=== PATIENT | female | born 1940 | race Caucasian/White ===

== ENCOUNTER 2017-04-15 10:12 | Outpatient (CLI) | payer MEDICARE, OTHER ==
--- NOTE | 2017-04-16 13:48 | DEXA Report ---
DEXA SCAN: 04/15/2017 INDICATION: Osteoporosis. TECHNIQUE: Dual energy x-ray absorptiometry (DXA) was performed on a [employer] system. Regions measured are the AP spine, femoral neck, and, if needed, forearm. COMPARISON: None. In accordance with the International Society for Clinical Densitometry (ISCD) guidelines, data from previous exams may be reanalyzed using current recommendations and techniques. This is done to allow a more accurate basis for comparison with the current study. FINDINGS Data for the lumbar spine is as follows: REGION BMD (g/cm/cm) T-SCORE Z-SCORE L1 0.738 -3.3 -1.6 L2 0.885 -2.6 -1.0 L3 0.949 -2.1 -0.4 L4 0.889 -2.6 -0.9 TOTAL 0.870 -2.6 -0.9 NOTE: All evaluable vertebrae are used for classification. Data for the hip is as follows: REGION BMD (g/cm/cm) T-SCORE Z-SCORE Neck 0.689 -2.5 -0.6 TOTAL 0.627 -3.0 -1.3 NOTE: The femoral neck or total proximal femur, whichever is lowest, is used for classification. IMPRESSION: THE WHO CLASSIFICATION BASED ON THE INTERNATIONAL REFERENCE STANDARD IS OSTEOPOROSIS. FRACTURE RISK IS HIGH. RECOMMENDATION: Patients with diagnosis of osteoporosis or osteopenia should have regular bone mineral density assessment. For those eligible for Medicare, routine testing is allowed once every 2 years. Testing frequency can be increased for patients who have rapidly progressing disease or for those who are receiving medical therapy to restore bone mass. COMMENT: World Health Organization (WHO) definitions for osteoporosis and osteopenia: NORMAL BMD: T-score at -1.0 or higher, fracture risk is low. OSTEOPENIA BMD: T-score between -1.0 and -2.5, fracture risk is increased. OSTEOPOROSIS BMD: T-score at -2.5 or lower, fracture risk high. National Osteoporosis Foundation recommends: 1. Obtain adequate dietary calcium (at least 1200 mg per day) and vitamin D (400 -800 international units per day). 2. Participate, as appropriate, in regular weightbearing and muscle- strengthening exercise. 3. Avoid tobacco use and reduce alcohol and caffeine intake. 4. For more detailed information see the website at www.NOF.org. MTDD
== END 2017-04-15 10:13 | disposition home or self-care (01) ==
LOC: DI 10:12
PROVIDERS: ATTEND Internal Medicine
DX: M81.0 Age-related osteoporosis without current pathological fracture (principal)
CPT/HCPCS: 77080

== ENCOUNTER 2017-04-15 10:14 | Outpatient (CLI) | payer MEDICARE, OTHER ==
--- NOTE | 2017-04-17 15:40 | Mammography Report ---
DIGITAL BILATERAL SCREENING MAMMOGRAM: 04/15/2017 COMPARISON: Mammogram of 04/02/2016. INDICATION: Screening mammography. TECHNIQUE: Routine CC and MLO projections were obtained of the breasts. FINDINGS: Parenchymal tissue within both breasts is heterogeneously dense, which may lower the sensi tivity of mammography; however, there are no dominant masses, suspicious microcalcifications, or seco ndary signs of malignancy. In comparison to the previous studies, there are no significant changes. ASSESSMENT: NO MAMMOGRAPHIC EVIDENCE OF MALIGNANCY. NO SIGNIFICANT INTERVAL CHANGES. RECOMMENDATION: Screening mammography is recommended annually. BIRADS category 1 - negative. STANDARD QUALIFYING STATEMENTS 1. This examination was reviewed with the aid of Computed-Aided Detection (CAD). 2. A negative or benign imaging report should not delay biopsy if clinically suspicious findings are present. Consider surgical consultation if warranted. More than 5% of cancers are not identified by i maging. 3. Dense breasts may obscure an underlying neoplasm. JOB #: [id number] EXT JOB #:[id number]
== END 2017-04-15 10:15 | disposition home or self-care (01) ==
LOC: DI 10:14
PROVIDERS: ATTEND Internal Medicine
DX: Z12.31 Encounter for screening mammogram for malignant neoplasm of breast (principal)
CPT/HCPCS: 77067

== ENCOUNTER 2017-10-02 12:02 | Outpatient (CLI) | payer MEDICARE, OTHER ==
--- NOTE | 2017-10-02 13:39 | Ultrasound Report ---
RIGHT LEG VENOUS DUPLEX: 10/02/2017 CLINICAL INDICATION: Right leg pain. TECHNIQUE: Real-time sonographic vascular imaging was performed by the substance abuse services director through the right lower extremity utilizing both color flow and Doppler spectral analysis. Multiple licensing representative static images were saved for review. FINDINGS: A right lower extremity venous sonogram is performed revealing the common femoral, superficial femoral, profunda femoris, and popliteal veins to be adequately visualized without intraluminal defects. There is normal venous compression, augmentation, phasicity, and spontaneity of venous flow. In the calf, the visualized more cephalad portions of posterior tibial and peroneal veins are grossly compressible, without filling defects. IMPRESSION: NO EVIDENCE OF DEEP VENOUS THROMBOSIS. TD: 10/02/2017 13:37
== END 2017-10-02 12:03 | disposition home or self-care (01) ==
LOC: DI 12:02
PROVIDERS: ATTEND Internal Medicine
DX: M79.604 Pain in right leg (principal)

== ENCOUNTER 2018-04-26 12:59 | Outpatient (CLI) | payer MEDICARE, OTHER ==
--- NOTE | 2018-04-27 10:18 | Mammography Report ---
Reason: ANNUAL SCREENING Procedure Date: 04/26/2018 Accession Number: [id number] / [id number] Procedure: KATELYN - Screening Mammo w/Erlin CPT Code: FULL RESULT: EXAM: Screening Mammo w/Erlin DATE: 04/26/2018 2:23 PM CLINICAL HISTORY: 77-year-old female presents for screening mammogram. TECHNIQUE: Bilateral CC and MLO views were obtained. COMPARISON: 04/15/2017, 04/02/2016, 03/22/2015, 03/08/2014. FINDINGS: The breasts demonstrate scattered fibroglandular densities bilaterally. No suspicious masses, clustered microcalcifications, or regions of architectural distortion are identified. IMPRESSION: Negative examination RECOMMENDATION: Routine annual screening unless otherwise clinically indicated. BIRADS CATEGORY 1: Negative STANDARD QUALIFYING STATEMENTS: 1. This examination was not reviewed with the aid of Computer-Aided Detection (CAD). 2. A negative or benign imaging report should not delay biopsy if clinically suspicious findings are present. Consider surgical consultation if warrented. More than 5% of cancers are not identified by imaging. 3. Dense breasts may obscure an underlying neoplasm. 4. This examination was reviewed with the aid of 3D breast imaging (tomosynthesis).
== END 2018-04-26 13:00 | disposition home or self-care (01) ==
LOC: DI 12:59
PROVIDERS: ATTEND Internal Medicine
DX: Z12.31 Encounter for screening mammogram for malignant neoplasm of breast (principal)
CPT/HCPCS: 77063; 77067

== ENCOUNTER 2018-09-07 08:00 | Outpatient (CLI) | payer MEDICARE, OTHER ==
[2018-09-07 13:14] LABS: H. PYLORIS ANTIGEN STL NEGATIVE (Negative)
== END 2018-09-07 23:59 | disposition home or self-care (01) ==
LOC: LAB.R 08:00
PROVIDERS: ATTEND Internal Medicine
DX: R14.0 Abdominal distension (gaseous) (principal); K21.9 Gastro-esophageal reflux disease without esophagitis
CPT/HCPCS: 83630; 87338; 89055

== ENCOUNTER 2018-10-14 10:50 | Outpatient (CLI) | payer MEDICARE, OTHER ==
[2018-10-14 18:26] LABS: BASOPHILS % (AUTO) 0.4 %; EOSINOPHILS # (AUTO) 0.1 10^3/uL (0.0-0.7); EOSINOPHILS % (AUTO) 2.6 %; HGB - HEMOGLOBIN 11.9 g/dL (12.0-16.0); LYMPHOCYTES # (AUTO) 1.3 10^3/uL (1.5-3.5); LYMPHOCYTES % (AUTO) 32.4 %; MEAN CORPUSCULAR HEMOGLOBIN 30.2 pg (27.0-31.0); MEAN CORPUSCULAR HGB CONC 32.8 g/dL (32.0-36.0); MEAN CORPUSCULAR VOLUME 92.3 fL (81.0-99.0); MEAN PLATELET VOLUME 9.2 fL (7.9-10.8); MONOCYTES # (AUTO) 0.4 10^3/uL (0.0-1.0); MONOCYTES % (AUTO) 11.5 %; NEUTROPHILS # (AUTO) 2.1 10^3/uL (1.5-6.6); NEUTROPHILS % (AUTO) 53.1 %; PLT - PLATELET COUNT 202 10^3/uL (130-450); RED BLOOD COUNT 3.93 10^6/uL (4.20-5.40); RED CELL DISTRIBUTION WIDTH 14.5 % (12.0-15.0); WHITE BLOOD COUNT 3.9 x10^3/uL (4.8-10.8)
[2018-10-14 18:48] LABS: ALBUMIN 3.7 g/dL (3.2-5.5); ALBUMIN/GLOBULIN RATIO 1.3 (1.0-2.2); BILIRUBIN,TOTAL 0.6 mg/dL (0.2-1.0); CALCIUM 9.1 mg/dL (8.5-10.3); CREATININE 0.8 mg/dL (0.4-1.0); TOTAL PROTEIN 6.6 g/dL (6.7-8.2)
== END 2018-10-14 10:51 | disposition home or self-care (01) ==
LOC: LAB.F 10:50
PROVIDERS: ATTEND Internal Medicine Gastroenterology
DX: I10 Essential (primary) hypertension (principal); K21.9 Gastro-esophageal reflux disease without esophagitis; K30 Functional dyspepsia
CPT/HCPCS: 36415; 80053; 83690; 85025

== ENCOUNTER 2018-10-15 12:33 | Outpatient (CLI) | payer MEDICARE, OTHER | END 2018-10-15 12:34 | disposition home or self-care (01) | LOC: RT 12:33 | PROVIDERS: ATTEND Internal Medicine Gastroenterology | DX: I10 Essential (primary) hypertension (principal) | CPT/HCPCS: 93005 ==

== ENCOUNTER 2018-10-28 12:12 | Day surgery (SDC) | payer MEDICARE, OTHER ==
[2018-10-28] MEDS ORDERED: LACTATED RINGERS 1,000 ML IV ONE (12:39)
[2018-10-28] MEDS ORDERED: LIDO GARGLE 30 ML BOTTLE ONE (13:48)
[2018-10-28] MEDS ORDERED: fentaNYL 100 MCG/2 ML VIAL IVP ONE (13:58)
[2018-10-28] MEDS ORDERED: MIDAZOLAM 2 MG/2 ML VIAL IVP ONE (13:58)
[2018-10-28] MEDS ORDERED: LIDO GARGLE 30 ML BOTTLE PO ONE (14:11)
[2018-10-28 14:55] VITALS: BP 127/69
== END 2018-10-28 12:13 | disposition home or self-care (01) ==
LOC: SDS 12:12
PROVIDERS: ATTEND Internal Medicine Gastroenterology
PROC: 0DB78ZX Excision of Stomach, Pylorus, Via Natural or Artificial Opening Endoscopic, Diagnostic (ICD-10-PCS; principal; 2018-10-28 13:45)
DX: K29.60 Other gastritis without bleeding (principal); K44.9 Diaphragmatic hernia without obstruction or gangrene; I10 Essential (primary) hypertension; E03.9 Hypothyroidism, unspecified; M19.90 Unspecified osteoarthritis, unspecified site; G43.909 Migraine, unspecified, not intractable, without status migrainosus; Z87.891 Personal history of nicotine dependence
CPT/HCPCS: 43239; A9270; J7120

== ENCOUNTER 2019-12-22 10:10 | Outpatient (CLI) | payer MEDICARE, OTHER ==
--- NOTE | 2019-12-22 13:12 | XRAY Report ---
PROCEDURE: Chest 2 View X-Ray INDICATIONS: DYSPNEA TECHNIQUE: 2 view(s) of the chest. COMPARISON: None. FINDINGS: Surgical changes and devices: None. Lungs and pleura: No pleural effusions or pneumothorax. Lungs are clear. Mediastinum: Mediastinal contours are normal. Heart size is normal. Bones and chest wall: No suspicious bony abnormalities. Soft tissues appear unremarkable. IMPRESSION: Chest without acute cardiopulmonary abnormality. Reviewed by: Gomez Cesar MD on 12/22/2019 1:11 PM PDT Approved by: Gomez Cesar MD on 12/22/2019 1:11 PM PDT Station ID: [id number]
[2019-12-22] MEDS ORDERED: IOVERSOL 320 100 ML VIAL IVP ONE (14:25)
[2019-12-22 14:40] LABS: CREATININE 0.8 mg/dL (0.4-1.0)
--- NOTE | 2019-12-22 16:23 | CT Report ---
PROCEDURE: ANGIO CHEST W/WO INDICATIONS: ABNORMAL ECHO CONTRAST: IV CONTRAST: Optiray 320 ml: 100 PO CONTRAST: *NO PO CONTRAST TECHNIQUE: Prior to and after the administration of intravenous contrast, 2 mm thick sections acquired from the pulmonary apices to the posterior costophrenic angles. 3-dimensional maximum intensity projection (M IP) coronal and sagittal reformats were then acquired through the thorax. For radiation dose reductio n, the following was used: automated exposure control, adjustment of mA and/or kV according to patie nt size. COMPARISON: None FINDINGS: Image quality: Excellent. Aorta: Intramural hematoma: Absent. Maximum hematoma thickness: Not applicable. Focal contrast enhancement: Intramural blood pool (< 2 mm neck or imperceptible communication with aortic lumen): Absent. Ulcer-like projection (broad communication with aortic lumen > 3 mm): Absent. Dissection: Absent [place] classification: Not applicable Maximum aortic diameter: 4.2 cm cm. [If [place] A dissection, > 5.0 cm has a poorer prognosis. If [place] B dissection, > 4.0 cm has a poorer prognosis.] Periaortic hematoma: Absent. Pulmonary arteries: Pulmonary arteries are normal in size, and demonstrate no intraluminal filling d efects to suggest central pulmonary embolism. Lungs and pleura: 1.1 cm masslike nodular opacification noted in the posterior lateral left lung base . 1.6 cm masslike nodular opacification noted in the lateral left lung base. No pleural effusions or pneumothorax. Central and peripheral airways are patent. Mediastinum: Heart size is normal, without pericardial effusion. Atherosclerotic calcifications note d in the aorta, great vessels and coronary vasculature. No mediastinal or hilar adenopathy. Thoraci c aorta is normal in caliber and enhancement. Esophagus is normal in caliber, without hiatal hernia. Bones and chest wall: No suspicious bony lesions. Ribs and thoracic spine appear intact throughout. The thyroid is normal. No axillary or supraclavicular adenopathy. Abdomen: Small hiatal hernia. Partially calcified 1.0 cm splenic artery aneurysm. Visualized upper a bdominal solid organs appear normal in the early arterial phase of enhancement. IMPRESSION: 1. No aortic dissection. 2. No pulmonary embolus. 3. 1.1 and 1.6 cm nodular opacities in the left lung base which could represent subsegmental atelecta sis, inflammation/infection or neoplastic process. Recommend correlation with clinical data and follo w-up CT scan in 3 months. 4. 1.1 cm splenic artery aneurysm. Reviewed by: Noemi Alex MD, PhD on 12/22/2019 4:21 PM PDT Approved by: Noemi Alex MD, PhD on 12/22/2019 4:21 PM PDT Station ID: [id number]
--- NOTE | 2019-12-22 16:36 | CT Report ---
PROCEDURE: ANGIO ABDOMEN W/WO INDICATIONS: Abnormal ECHO CONTRAST: IV CONTRAST: Optiray 320 ml: 100 PO CONTRAST: *NO PO CONTRAST TECHNIQUE: After the administration of intravenous contrast, 2.5 mm thick sections acquired from the diaphragm t o the symphysis. 10 mm maximum-intensity projection (MIP) reformats were then acquired. For radiati on dose reduction, the following was used: automated exposure control. COMPARISON: None. FINDINGS: Image quality: Excellent. Aorta: Aorta appears normal in size and caliber without evidence for aneurysmal dilatation. Scattere d atherosclerosis. There are atherosclerotic calcifications at the origins of the celiac trunk, super ior mesenteric artery, and inferior mesenteric artery without hemodynamically significant stenosis. N o evidence for occlusion or dissection. There is no periaortic inflammatory stranding. Incidental not e of a 1.2 x 1.0 cm distal splenic artery aneurysm. The bilateral renal arteries are widely patent. Mesenteric arteries: Celiac trunk, superior and inferior mesenteric arteries appear patent. Right pelvic arteries: Patent Left pelvic arteries: Patent Extravascular soft tissues: Lung bases demonstrate a 1.1 and 1.6 cm nodular consolidation which coul d represent subsegmental atelectasis, inflammation/infection, or neoplastic process. Heart size is no rmal. Liver and spleen are normal in size and enhancement. Gallbladder appears decompressed. Bilia ry system is non dilated. Pancreas enhances normally. No adrenal nodules. Kidneys are normal in si ze and enhancement, without hydronephrosis. Non opacified bowel loops are normal in wall thickness a nd caliber. No free fluid or air. No retroperitoneal or mesenteric adenopathy. No ventral hernias. No suspicious bony lesions. No acute vertebral body compression fractures. Chronic appearing anter ior compression deformity at T11. IMPRESSION: 1. No evidence for abdominal aortic dissection or aneurysmal dilatation. 2. A 1.1 cm and 1.6 cm nodular consolidation in the left lung base which could represent subsegmental atelectasis, inflammation/infection, or neoplastic process. Recommend short interval follow-up CT in 3 months to document stability. 3. Incidental note of a 1.2 cm distal splenic artery aneurysm. 4. Chronic appearing anterior compression deformity at T11. 5. Atherosclerosis. Reviewed by: Gomez Cesar MD on 12/22/2019 4:34 PM PDT Approved by: Gomez Cesar MD on 12/22/2019 4:34 PM PDT Station ID: [id number]
== END 2019-12-22 10:11 | disposition home or self-care (01) ==
LOC: DI 10:10
PROVIDERS: ATTEND Internal Medicine
DX: R91.8 Other nonspecific abnormal finding of lung field (principal); I72.8 Aneurysm of other specified arteries; I70.8 Atherosclerosis of other arteries; K55.1 Chronic vascular disorders of intestine; M43.8X4 Other specified deforming dorsopathies, thoracic region; I51.7 Cardiomegaly; I27.20 Pulmonary hypertension, unspecified; I35.1 Nonrheumatic aortic (valve) insufficiency; I34.0 Nonrheumatic mitral (valve) insufficiency; I70.0 Atherosclerosis of aorta; Z79.899 Other long term (current) drug therapy
CPT/HCPCS: 36415; 71046; 71275; 74175; 82565; 93306; Q9967

== ENCOUNTER 2020-03-26 10:35 | Outpatient (CLI) | payer MEDICARE, OTHER | END 2020-03-26 10:36 | disposition critical access hospital (66) | LOC: EMS 10:35 | PROVIDERS: ATTEND Surgery | DX: M25.551 Pain in right hip (principal) | CPT/HCPCS: A0425; A0427 ==

== ENCOUNTER 2020-03-26 11:13 | Inpatient (IN) | payer MEDICARE, OTHER ==
[2020-03-26] MEDS ORDERED: SODIUM CHLORIDE 0.9% 1,000 ML IV STA (11:26)
[2020-03-26] MEDS ORDERED: HYDROmorphone 1 MG/ML CARPUJECT IVP STA (11:26)
[2020-03-26 12:02] LABS: BASOPHILS % (AUTO) 0.2 %; EOSINOPHILS # (AUTO) 0.1 10^3/uL (0.0-0.7); EOSINOPHILS % (AUTO) 1.4 %; HGB - HEMOGLOBIN 11.6 g/dL (12.0-16.0); LYMPHOCYTES # (AUTO) 0.9 10^3/uL (1.5-3.5); LYMPHOCYTES % (AUTO) 16.5 %; MEAN CORPUSCULAR HEMOGLOBIN 30.8 pg (27.0-31.0); MEAN CORPUSCULAR HGB CONC 32.7 g/dL (32.0-36.0); MEAN CORPUSCULAR VOLUME 94.2 fL (81.0-99.0); MONOCYTES # (AUTO) 0.5 10^3/uL (0.0-1.0); MONOCYTES % (AUTO) 8.1 %; NEUTROPHILS # (AUTO) 4.1 10^3/uL (1.5-6.6); NEUTROPHILS % (AUTO) 73.4 %; PLT - PLATELET COUNT 183 10^3/uL (130-450); RED BLOOD COUNT 3.77 10^6/uL (4.20-5.40); RED CELL DISTRIBUTION WIDTH 13.1 % (12.0-15.0); WHITE BLOOD COUNT 5.6 x10^3/uL (4.8-10.8)
--- NOTE | 2020-03-26 12:06 | XRAY Report ---
PROCEDURE: Chest 1 View X-Ray INDICATIONS: pre-op TECHNIQUE: One view of the chest was acquired. COMPARISON: 12/22/2019 2 view chest FINDINGS: Surgical changes and devices: None. Lungs and pleura: No pleural effusions or pneumothorax. Lungs are abnormal with large lung volumes and flattening of the diaphragms. COPD may be present as the underlying cause. This has not changed.. Mediastinum: Mediastinal contours appear normal. Heart size is normal. Bones and chest wall: No suspicious bony lesions. Overlying soft tissues appear unremarkable. IMPRESSION: Large lung volumes, possible underlying COPD. Please note that aggressive inspiratory effort also cou ld produce this appearance. Reviewed by: Clark Guthrie MD on 03/26/2020 12:04 PM PDT Approved by: Clark Guthrie MD on 03/26/2020 12:04 PM PDT Station ID: [id number]
--- NOTE | 2020-03-26 12:07 | XRAY Report ---
PROCEDURE: Hip w/Pelvis 2-3V RT INDICATIONS: fall/pain/short/rotated TECHNIQUE: AP pelvis with lateral view(s) of the right hip(s). COMPARISON: None. FINDINGS: Bones: No dislocations but there is a intertrochanteric fracture, transecting the intertrochanteric line vertically.. Pelvic ring appears intact. No suspicious bony lesions. Soft tissues: The visualized bowel gas pattern is normal. No suspicious soft tissue calcifications. IMPRESSION: Intertrochanteric right hip fracture, vertically oriented. No additional pelvic or left hip injury seen. Reviewed by: Clark Guthrie MD on 03/26/2020 12:06 PM PDT Approved by: Clark Guthrie MD on 03/26/2020 12:06 PM PDT Station ID: [id number]
[2020-03-26 12:09] LABS: INR 1.1 (0.8-1.2); PT - PROTHROMBIN TIME 12.3 secs (9.9-12.6)
[2020-03-26 12:15] LABS: ALBUMIN 3.6 g/dL (3.2-5.5); ALBUMIN/GLOBULIN RATIO 1.6 (1.0-2.2); BILIRUBIN,TOTAL 0.8 mg/dL (0.2-1.0); CALCIUM 8.8 mg/dL (8.5-10.3); CREATININE 0.9 mg/dL (0.4-1.0); TOTAL PROTEIN 5.9 g/dL (6.7-8.2)
--- NOTE | 2020-03-26 12:32 | ED Physician Documentation ---
History of Present Illness - Stated complaint Stated Complaint: GLF - Chief complaint Chief Complaint: Ext Problem - History obtained from History obtained from: Patient, EMS - Additonal information Additional information: Pt was brought to the ED after stumbling and falling during a pickleball game, with chief complaint of R hip pain. Medics have noted shortening and rotation. Pt denies hitting her head or losing consciousness. She denies pain anywhere else. She lives on her own and is fairly healthy. Review of Systems Ten Systems: 10 systems reviewed and negative Constitutional: reports: Reviewed and negative Eyes: reports: Reviewed and negative Ears: reports: Reviewed and negative Nose: reports: Reviewed and negative Throat: reports: Reviewed and negative Cardiac: reports: Reviewed and negative Respiratory: reports: Reviewed and negative GI: reports: Reviewed and negative : reports: Reviewed and negative Skin: reports: Reviewed and negative Musculoskeletal: reports: Extremity pain, Joint pain Neurologic: reports: Reviewed and negative Psychiatric: reports: Reviewed and negative Endocrine: reports: Reviewed and negative Immunocompromised: reports: Reviewed and negative PD PAST MEDICAL HISTORY - Past Medical History Cardiovascular: Hypertension Respiratory: None Endocrine/Autoimmune: Other GI: None : None HEENT: Macular degeneration, Other Psych: None Musculoskeletal: Osteoporosis Derm: None Other Past Medical History: Hemachromatosis - Past Surgical History /[employer]GING [employer]EVER [employer]ER: Hysterectomy Derm: Other - Present Medications Home Medications: Ambulatory Orders Medication Instructions Recorded Confirmed Levothyroxine [Synthroid] 100 mcg PO DAILY 05/13/17 03/26/20 Escitalopram Oxalate [Lexapro] 5 mg PO DAILY 03/26/20 03/26/20 Losartan Potassium 100 mg PO DAILY 03/26/20 03/26/20 Omeprazole 40 mg PO DAILY 03/26/20 03/26/20 - Allergies Allergies/Adverse Reactions: Allergies Allergy/AdvReac Type Severity Reaction Status Date / Time erythromycin base Allergy Mild Nausea Verified 10/27/18 14:59 Penicillins Allergy Mild Rash Verified 10/27/18 14:59 clindamycin Allergy Rash Verified 10/28/18 12:41 - Social History Does the pt smoke?: No Smoking Status: Never smoker Does the pt drink ETOH?: Yes Does the pt have substance abuse?: No - Immunizations Immunizations are current?: Yes PD ED PE NORMAL - Vitals Vital signs reviewed: Yes - General General: Alert and oriented X 3, No acute distress - HEENT HEENT: Atraumatic, PERRL - Neck Neck: Supple, no meningeal sign - Cardiac Cardiac: RRR, No murmur, Strong equal pulses - Respiratory Respiratory: No respiratory distress, Clear bilaterally - Abdomen Abdomen: Soft, Non tender, Non distended - Back Back: No CVA TTP, No spinal TTP - Derm Derm: Normal color, Warm and dry, No rash, Other (No skin trauma) - Extremities Extremities: Other (Shortening and external rotation of RLE. Minimal point tenderness over R hip, but any movement elicits pain. 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, No motor deficit, No sensory deficit, Normal speech - Psych Psych: Normal mood, Normal affect Results - Vitals Vitals: Vital Signs - 24 hr 03/26/20 03/26/20 03/26/20 11:16 11:25 12:08 Temperature 36.3 C L Heart Rate 53 L 51 L 58 L Respiratory 18 16 20 Rate Blood Pressure 150/84 H 140/72 H 134/71 H O2 Saturation 99 98 99 Oxygen O2 Source Room air - Labs Labs: Laboratory Tests 03/26/20 03/26/20 03/26/20 11:50 11:50 11:50 WBC 5.6 RBC 3.77 L Hgb 11.6 L Hct 35.5 L MCV 94.2 MCH 30.8 MCHC 32.7 RDW 13.1 Plt Count 183 MPV 10.0 Neut # (Auto) 4.1 Lymph # (Auto) 0.9 L Barbour # (Auto) 0.5 Eos # (Auto) 0.1 Baso # (Auto) 0.0 Absolute Nucleated RBC 0.00 Nucleated RBC % 0.0 PT 12.3 INR 1.1 Sodium Potassium Chloride Carbon Dioxide Anion Gap BUN Creatinine Estimated GFR (MDRD) Glucose Calcium Total Bilirubin AST ALT Alkaline Phosphatase Total Protein Albumin Globulin Albumin/Globulin Ratio Lipase Blood Type O POSITIVE Antibody Screen NEGATIVE 03/26/20 11:50 WBC RBC Hgb Hct MCV MCH MCHC RDW Plt Count MPV Neut # (Auto) Lymph # (Auto) Barbour # (Auto) Eos # (Auto) Baso # (Auto) Absolute Nucleated RBC Nucleated RBC % PT INR Sodium 138 Potassium 4.0 Chloride 105 Carbon Dioxide 23 Anion Gap 10.0 BUN 17 Creatinine 0.9 Estimated GFR (MDRD) 60 L Glucose 111 H Calcium 8.8 Total Bilirubin 0.8 AST 21 ALT 12 Alkaline Phosphatase 77 Total Protein 5.9 L Albumin 3.6 Globulin 2.3 Albumin/Globulin Ratio 1.6 Lipase 44 Blood Type Antibody Screen - Rads (name of study) R hip/pelvis Radiology: Final report received, EMP read indepedently, See rad report (displaced IT fx) CXR Radiology: Final report received, EMP read indepedently, See rad report (nad) PD MEDICAL DECISION MAKING - ED course Complexity details: reviewed results, re-evaluated patient, considered differential, d/w patient ED course: The pt was feeling fairly good after receiving fentanyl en-route, and declined analgesia at first. Not surprisingly, her XR showed a hip fx. I spoke with Dr. Lamar, the orthopedist [employer], who has agreed to consult with plan to take pt to OR in AM. I spoke with Dr. Chin, who agreed to primarily admit the pt. Departure - Departure Disposition: [facility] DC/Xfer Clinical Impression: Hip fracture Qualifiers: Encounter type: initial encounter Fracture type: closed Laterality: right Qualified Code(s): S72.001A - Fracture of unspecified part of neck of right femur, initial encounter for closed fracture Condition: Serious Discharge Date/Time: 03/26/20 13:42
[2020-03-26] MEDS ORDERED: ONDANSETRON 4 MG/2 ML VIAL IVP PRN (12:35)
[2020-03-26] MEDS ORDERED: ONDANSETRON ODT 4 MG TABLET TL PRN (12:35)
[2020-03-26] MEDS ORDERED: SODIUM CHLORIDE FLUSH 0.9% 10 ML SYRINGE IVP PRN (12:35)
--- NOTE | 2020-03-26 12:40 | HISTORY & PHYSICAL EXAMINATION ---
Chief Complaint - Chief Complaint Chief Complaint: Right hip pain History of Present Illness - Admitted From Admitted From:: Home - History Obtained From Records Reviewed: Yes History obtained from: Patient, ER Physician, EMR - History of Present Illness HPI Comment/Other: This is a very pleasant 79-year-old female with a past medical history signif icant for hypertension, hypothyroidism, hemochromatosis who presents today after a fall complaining of right hip pain. She states she was playing pickle ball today when she was walking backwards when she stumbled and fell on the right side of her hip. She reports no syncope, loss of consciousness, chest pain, palpitations. She did not hit her head. She complains of right hip pain and decreased range of motion of the right hip. She reports she is quite active normally and plays pickle ball twice a week and tries to hike 3-4 times a week as well. She gets no chest pain or dyspnea. She has no prior history of arrhythmias, coronary artery disease, CHF, diabetes, renal disease. She has no history of COPD. In the emergency department, she was found to be afebrile temperature of 36.3 C. She was bradycardic with a heart rate in the 50s. Blood pressure was 134/71. She was not tachypneic and saturating well on room air. Her labs were unremarkable. Imaging of the right hip revealed a right intertrochanteric fracture. This was discussed with orthopedic surgery and she will be admitted to the hospitalist service for surgical intervention. 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 She has been here since the mid 1999 when she moved from [place]. 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 She is originally from [place]. She smoked for 7 years from the age of [age] but has not smoked since then. She will have half a beer with lunch and half a glass of wine with dinner on a daily basis. Meds/Allgy - Home Medications Home Medications: Ambulatory Orders Medication Instructions Recorded Confirmed Levothyroxine [Synthroid] 100 mcg PO DAILY 05/13/17 03/26/20 Escitalopram Oxalate [Lexapro] 5 mg PO DAILY 03/26/20 03/26/20 Losartan Potassium 100 mg PO DAILY 03/26/20 03/26/20 Omeprazole 40 mg PO DAILY 03/26/20 03/26/20 - Allergies Allergies/Adverse Reactions: Allergies Allergy/AdvReac Type Severity Reaction Status Date / Time erythromycin base Allergy Mild Nausea Verified 10/27/18 14:59 Penicillins Allergy Mild Rash Verified 10/27/18 14:59 clindamycin Allergy Rash Verified 10/28/18 12:41 Prior Level of Functionality: She is independent with her ADL's. Exam - Vital Signs Reviewed Vital Signs: Yes Vital Signs: Vital Signs x48h Temp Pulse Resp BP Pulse Ox 03/26/20 12:08 58 L 20 134/71 H 99 03/26/20 11:25 51 L 16 140/72 H 98 03/26/20 11:16 36.3 C L 53 L 18 150/84 H 99 - Physical Exam General Appearance: positive: No acute distress, Alert Eyes Bilateral: positive: Normal inspection, Conjunctivae nml ENT: positive: ENT inspection nml Neck: positive: Nml inspection Respiratory: positive: No respiratory distress. negative: Wheezes, Rales Cardiovascular: positive: No murmur, Bradycardia. negative: Tachycardia, Systolic murmur, Diastolic murmur Abdomen: positive: Non-tender, No distention. negative: Tenderness, Guarding, Rebound Skin: positive: Warm, Dry Extremities: positive: No pedal edema, Other (Her right lower extremity is externally rotated. No erythema or edema surrounding the right hip. She is tender over the anterior aspect of the right femur approximately. Distal pulses are intact.) Neurologic/Psychiatric: positive: Oriented x3, Sensation nml. negative: Disoriented to person, Disoriented to place, Disoriented to time Conclusion/Plan - Problem List (1) Closed right hip fracture Conclusion/Plan: This is evident on imaging. We will make n.p.o. at midnight for surgical intervention with orthopedic surgery tomorrow. Pain control with morphine and oxycodone as needed. Will consult PT and OT postoperatively. Lovenox for DVT prophylaxis and then she will need aspirin twice daily postoperatively for DVT prophylaxis. Social work consult for disposition planning. She will need Fosamax in 2 weeks postoperatively. Qualifiers: Encounter type: initial encounter Qualified Code(s): S72.001A - Fracture of unspecified part of neck of right femur, initial encounter for closed fracture (2) Preop examination Conclusion/Plan: He is able to function greater than 4 METS and her EKG reveals a sinus bradycardia without any obvious ischemic changes. Echocardiogram from December of this year showed a preserved ejection fraction and mild to moderate mitral regurgitation as well as moderate to severe aortic regurgitation. She has no history of diabetes, heart failure, arrhythmia, renal disease. From a medical perspective, she is medically optimized to proceed with surgical intervention at this time. RCRI score puts her at class I risk with 0 points. She has 3.9% 3-day risk of , AK, cardiac arrest. Her Olmedo perioperative risk is 0.8%. (3) Aortic regurgitation Conclusion/Plan: This was evidence on her echocardiogram back in December. This revealed moderate to severe aortic regurgitation. Her ejection fraction was preserved at 60%. Even her excellent functional status and her preserved ejection fraction, I do not believe this warrants further work-up or management prior to surgical intervention. This can be followed up on outpatient basis. (4) Hypertension Conclusion/Plan: Stable. We will continue her home antihypertensives. (5) Hypothyroidism Conclusion/Plan: Stable. We will continue her home dose of Synthroid. (6) Hemochromatosis Conclusion/Plan: Stable. She has had phlebotomies in the past. Hemoglobin is currently stable. Continue outpatient follow-up with hematology as needed. - Lab Results Lab results reviewed: Yes Fish Bones: 03/26/20 11:50 03/26/20 11:50 - Diagnostic Imaging Results Diagnostic Imaging Results: positive: Final report reviewed - EKG Results EKG Interpreted Independently: Yes EKG Comparison: Changed from prior EKG (Prior EKG revealed sinus rhythm with a left anterior fascicular block.) EKG Findings: Her EKG reveals sinus bradycardia with nonspecific specific intraventricular conduction delay. No ischemic changes. Core Measures - Anticipated LOS I expect patient to be DC'd or transferred within 96 hours.: Yes - Issues Hospital Issues and Management Plan: 79-year-old female with a right hip fracture. We will admit for surgical intervention with orthopedics. Pain control with morphine. PT, OT, social work consult for disposition.
[2020-03-26] MEDS: oxyCODONE 5 MG TABLET PO PRN ×2 (14:30→18:55)
[2020-03-26] MEDS: ACETAMINOPHEN 325 MG TABLET PO PRN ×2 (14:30→18:55)
--- NOTE | 2020-03-26 14:45 | PHARMACY PROGRESS NOTE ---
- Best Possible Medication History Admit Date and Time: 03/26/20 1235 Processed by: Pharmacy Medication History completed: Yes Patient Interview: Completed Secondary Source(s): Insurance records As the person ultimately responsible for medication therapy, providers are able to order a medication from an existing home medication list in [facility] via the "Reconcile Routine" prior to Confirmation of that medication by sales and support center agent. Such practice is discouraged except when the physician, in their clinical judgment, deems that a medical need exists for a medication without regard to previous use.
[2020-03-26] MEDS: MORPHINE 2 MG/ML CARPUJECT IVP PRN ×2 (16:15→22:41)
[2020-03-26] MEDS: SODIUM CHLORIDE FLUSH 0.9% 10 ML SYRINGE IVP SCH (16:15)
--- NOTE | 2020-03-26 17:24 | HISTORY & PHYSICAL EXAMINATION ---
HPI - History Obtained From History obtained from: Patient Exam limitations: No limitations - History of Present Illness HPI Comment/Other: This is a relatively healthy and active 79-year-old woman who was playing pickle ball about 10:00 this morning when she fell landed on her right hip. She had immediate pain and difficulty bearing any weight on the right leg. She is brought to the emergency room following the injury with isolated complaint of pain about the right hip and upper thigh. She denies chest pain, shortness of breath, dizziness, syncope or loss of consciousness associated with the fall. She has had no previous problems with the right hip. She is normally very active and enjoys hiking and playing pickle ball.She is a , lives alone and is independent in all activities of daily living. She has no neurologic symptoms. She denies any low back pain. 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 Derm: positive: Other Social & Family Hx - Social History Does the pt smoke?: No Smoking Status: Former smoker Does the pt drink ETOH?: Yes Does the pt have substance abuse?: No Meds/Allgy - Home Medications Home Medications: Ambulatory Orders Medication Instructions Recorded Confirmed Levothyroxine [Synthroid] 100 mcg PO DAILY 05/13/17 03/26/20 Escitalopram Oxalate [Lexapro] 5 mg PO DAILY 03/26/20 03/26/20 Losartan Potassium 100 mg PO DAILY 03/26/20 03/26/20 Omeprazole 40 mg PO DAILY 03/26/20 03/26/20 - Allergies Allergies/Adverse Reactions: Allergies Allergy/AdvReac Type Severity Reaction Status Date / Time erythromycin base Allergy Mild Nausea Verified 10/27/18 14:59 Penicillins Allergy Mild Rash Verified 10/27/18 14:59 clindamycin Allergy Rash Verified 10/28/18 12:41 Exam - Vital Signs Vital Signs: Vital Signs x48h Temp Pulse Pulse Resp BP BP Pulse Ox 03/26/20 16:14 36.6 C 70 18 95/54 L 98 03/26/20 14:00 37.1 C 57 L 17 98/54 L 97 03/26/20 13:22 53 L 19 132/80 H 100 03/26/20 12:45 36.5 C 51 L 16 133/76 H 99 03/26/20 12:08 58 L 20 134/71 H 99 03/26/20 11:25 51 L 16 140/72 H 98 03/26/20 11:16 36.3 C L 53 L 18 150/84 H 99 - Physical Exam General Appearance: positive: No acute distress Eyes Bilateral: positive: Normal inspection ENT: positive: ENT inspection nml Neck: positive: Nml inspection Respiratory: positive: Chest non-tender, No respiratory distress Cardiovascular: positive: Regular rate & rhythm Peripheral Pulses: positive: 2+ Abdomen: positive: Non-tender Skin: negative: Other (Right leg shortened and externally rotated, marked pain with any movement of right hip. There is no other sign of fracture or injury to upper or lower extremity other than the right leg.) Neurologic/Psychiatric: positive: Oriented x3, Motor nml, Sensation nml Results - Lab Results Fish Bones: 03/26/20 11:50 03/26/20 11:50 Other Lab Results: Lab Results x24hrs 03/26/20 03/26/20 03/26/20 Range/Units 11:50 11:50 11:50 WBC 5.6 (4.8-10.8) x10^3/uL RBC 3.77 L (4.20-5.40) 10^6/uL Hgb 11.6 L (12.0-16.0) g/dL Hct 35.5 L (37.0-47.0) % MCV 94.2 (81.0-99.0) fL MCH 30.8 (27.0-31.0) pg MCHC 32.7 (32.0-36.0) g/dL RDW 13.1 (12.0-15.0) % Plt Count 183 (130-450) 10^3/uL MPV 10.0 (7.9-10.8) fL Neut # (Auto) 4.1 (1.5-6.6) 10^3/uL Lymph # (Auto) 0.9 L (1.5-3.5) 10^3/uL [place] # (Auto) 0.5 (0.0-1.0) 10^3/uL Eos # (Auto) 0.1 (0.0-0.7) 10^3/uL Baso # (Auto) 0.0 (0.0-0.1) 10^3/uL Absolute Nucleated RBC 0.00 x10^3/uL Nucleated RBC % 0.0 /100WBC PT 12.3 (9.9-12.6) secs INR 1.1 (0.8-1.2) Sodium 138 (135-145) mmol/L Potassium 4.0 (3.5-5.0) mmol/L Chloride 105 (101-111) mmol/L Carbon Dioxide 23 (21-32) mmol/L Anion Gap 10.0 (6-13) BUN 17 (6-20) mg/dL Creatinine 0.9 (0.4-1.0) mg/dL Estimated GFR (MDRD) 60 L (>89) Glucose 111 H (70-100) mg/dL Calcium 8.8 (8.5-10.3) mg/dL Total Bilirubin 0.8 (0.2-1.0) mg/dL AST 21 (10-42) IU/L ALT 12 (10-60) IU/L Alkaline Phosphatase 77 (42-121) IU/L Total Protein 5.9 L (6.7-8.2) g/dL Albumin 3.6 (3.2-5.5) g/dL Globulin 2.3 (2.1-4.2) g/dL Albumin/Globulin Ratio 1.6 (1.0-2.2) Lipase 44 (22-51) U/L Blood Type Antibody Screen 03/26/20 Range/Units 11:50 WBC (4.8-10.8) x10^3/uL RBC (4.20-5.40) 10^6/uL Hgb (12.0-16.0) g/dL Hct (37.0-47.0) % MCV (81.0-99.0) fL MCH (27.0-31.0) pg MCHC (32.0-36.0) g/dL RDW (12.0-15.0) % Plt Count (130-450) 10^3/uL MPV (7.9-10.8) fL Neut # (Auto) (1.5-6.6) 10^3/uL Lymph # (Auto) (1.5-3.5) 10^3/uL [place] # (Auto) (0.0-1.0) 10^3/uL Eos # (Auto) (0.0-0.7) 10^3/uL Baso # (Auto) (0.0-0.1) 10^3/uL Absolute Nucleated RBC x10^3/uL Nucleated RBC % /100WBC PT (9.9-12.6) secs INR (0.8-1.2) Sodium (135-145) mmol/L Potassium (3.5-5.0) mmol/L Chloride (101-111) mmol/L Carbon Dioxide (21-32) mmol/L Anion Gap (6-13) BUN (6-20) mg/dL Creatinine (0.4-1.0) mg/dL Estimated GFR (MDRD) (>89) Glucose (70-100) mg/dL Calcium (8.5-10.3) mg/dL Total Bilirubin (0.2-1.0) mg/dL AST (10-42) IU/L ALT (10-60) IU/L Alkaline Phosphatase (42-121) IU/L Total Protein (6.7-8.2) g/dL Albumin (3.2-5.5) g/dL Globulin (2.1-4.2) g/dL Albumin/Globulin Ratio (1.0-2.2) Lipase (22-51) U/L Blood Type O POSITIVE Antibody Screen NEGATIVE - Diagnostic Imaging Results Diagnostic Imaging Results: negative: Read independently (Displaced, reverse obliquity intertrochanteric fracture right hip with associated osteopenia) Impression/Plan - Problem List Problem List: Displaced intertrochanteric fracture, reverse obliquity, right hip I discussed treatment options both nonoperative and operative. She is relatively healthy and would like to maintain her activity, therefore, she would like to undergo open reduction internal fixation of the right hip fracture. I discussed the risk, goals and likelihood of achieving goals, alternatives, disability and . I have encouraged questions, have done a teach back. I discussed both specific and general procedure risk. She is in agreement to the surgery and has signed informed consent agreeing to the surgical treatment which will be performed tomorrow morning. I have talked to Dr. Chin who states that there are no contraindications to surgery.
[2020-03-27] MEDS: SODIUM CHLORIDE FLUSH 0.9% 10 ML SYRINGE IVP SCH ×2 (00:34→16:42)
[2020-03-27] MEDS: MORPHINE 2 MG/ML CARPUJECT IVP PRN ×3 (00:49→07:29)
[2020-03-27] MEDS ORDERED: LACTATED RINGERS 1,000 ML IV SCH ×2 (01:00→10:00)
[2020-03-27 05:26] LABS: BASOPHILS % (AUTO) 0.3 %; EOSINOPHILS # (AUTO) 0.1 10^3/uL (0.0-0.7); EOSINOPHILS % (AUTO) 1.7 %; HGB - HEMOGLOBIN 9.4 g/dL (12.0-16.0); LYMPHOCYTES % (AUTO) 17.8 %; MEAN CORPUSCULAR HEMOGLOBIN 29.7 pg (27.0-31.0); MEAN CORPUSCULAR HGB CONC 30.9 g/dL (32.0-36.0); MEAN CORPUSCULAR VOLUME 96.2 fL (81.0-99.0); MEAN PLATELET VOLUME 9.9 fL (7.9-10.8); MONOCYTES # (AUTO) 0.7 10^3/uL (0.0-1.0); MONOCYTES % (AUTO) 11.2 %; NEUTROPHILS % (AUTO) 68.7 %; PLT - PLATELET COUNT 156 10^3/uL (130-450); RED BLOOD COUNT 3.16 10^6/uL (4.20-5.40); RED CELL DISTRIBUTION WIDTH 13.2 % (12.0-15.0); WHITE BLOOD COUNT 5.8 x10^3/uL (4.8-10.8)
[2020-03-27 05:37] LABS: CALCIUM 8.4 mg/dL (8.5-10.3); CREATININE 0.8 mg/dL (0.4-1.0); MAGNESIUM 2.2 mg/dL (1.7-2.8); PHOSPHORUS 3.4 mg/dL (2.5-4.6)
[2020-03-27] MEDS ORDERED: BUPIVACAINE 0.25% PF 30 ML VIAL ONE (07:27)
--- NOTE | 2020-03-27 07:43 | ANESTHESIA ---
Pre-Anesthesia VS, & Labs - Diagnosis Right hip fracture - Procedure right hip nailing Vital Signs: Temp Pulse Resp BP Pulse Ox 37.0 C 52 L 16 114/51 L 100 03/27/20 04:37 03/27/20 04:37 03/27/20 04:37 03/27/20 04:37 03/27/20 04:37 Height: 5 ft 9 in Weight (kg): 74 kg Body Mass Index: 24.0 BMI Classification: Healthy weight - NPO >8 hours - Is Patient ?: No - Lab Results Current Lab Results: Laboratory Tests 03/27/20 05:14: Sodium 136, Potassium 3.6, Chloride 105, Carbon Dioxide 23, Anion Gap 8.0, BUN 16, Creatinine 0.8, Estimated GFR (MDRD) 69 L, Glucose 114 H, Calcium 8.4 L, Phosphorus 3.4, Magnesium 2.2 03/27/20 05:14: WBC 5.8, RBC 3.16 L, Hgb 9.4 L, Hct 30.4 L, MCV 96.2, MCH 29.7, MCHC 30.9 L, RDW 13.2, Plt Count 156, MPV 9.9, Neut # (Auto) 4.0, Lymph # (Auto) 1.0 L, [place] # (Auto) 0.7, Eos # (Auto) 0.1, Baso # (Auto) 0.0, Absolute Nucleat ed RBC 0.00, Nucleated RBC % 0.0 03/26/20 11:50: Sodium 138, Potassium 4.0, Chloride 105, Carbon Dioxide 23, Anion Gap 10.0, BUN 17, Creatinine 0.9, Estimated GFR (MDRD) 60 L, Glucose 111 H , Calcium 8.8, Total Bilirubin 0.8, AST 21, ALT 12, Alkaline Phosphatase 77, Total Protein 5.9 L, Albumin 3.6, Globulin 2.3, Albumin/Globulin Ratio 1.6, Lipase 44 03/26/20 11:50: PT 12.3, INR 1.1 03/26/20 11:50: WBC 5.6, RBC 3.77 L, Hgb 11.6 L, Hct 35.5 L, MCV 94.2, MCH 30.8, MCHC 32.7, RDW 13.1, Plt Count 183, MPV 10.0, Neut # (Auto) 4.1, Lymph # (Auto) 0.9 L, [place] # (Auto) 0.5, Eos # (Auto) 0.1, Baso # (Auto) 0.0, Absolute Nucleated RBC 0.00, Nucleated RBC % 0.0 03/26/20 11:50: Blood Type O POSITIVE, Antibody Screen NEGATIVE Fish Bones: 03/27/20 05:14 03/27/20 05:14 Home Medications and Allergies Home Medications: Ambulatory Orders Escitalopram Oxalate [Lexapro] 5 mg PO DAILY 03/26/20 Losartan Potassium 100 mg PO DAILY 03/26/20 Omeprazole 40 mg PO DAILY 03/26/20 Active Medications Acetaminophen (Tylenol) 650 mg PO Q4HR PRN PRN Reason: Pain 1 to 4 Last Admin: 03/26/20 18:55 Dose: 650 mg Documented by: Enoxaparin Sodium (Lovenox) 40 mg SUBQ DAILY [facility] Escitalopram Oxalate (Lexapro) 5 mg PO DAILY [facility] Lactated Ringer's (Lr) 1,000 mls @ 83.333 mls/hr IV .Q12H [facility] Last Admin: 03/27/20 00:34 Dose: 83.333 mls/hr Documented by: Levothyroxine Sodium (Synthroid) 100 mcg PO DAILY [facility] Morphine Sulfate (Morphine (Carpuject)) 2 mg IVP Q2HR PRN PRN Reason: Pain 8 to 10 Last Admin: 03/27/20 07:29 Dose: 2 mg Documented by: Ondansetron HCl (Zofran Inj) 4 mg IVP Q6HR PRN PRN Reason: Nausea / Vomiting Ondansetron HCl (Zofran Odt) 4 mg TL Q6HR PRN PRN Reason: Nausea / Vomiting Oxycodone HCl (Roxicodone) 5 mg PO Q4HR PRN PRN Reason: Pain 5 to 7 Last Admin: 03/26/20 18:55 Dose: 5 mg Documented by: Pantoprazole Sodium (Protonix) 40 mg PO DAILY [facility] Sodium Chloride (Normal Saline Flush 0.9%) 10 ml IVP PRN PRN PRN Reason: NEEDED PER PROVIDER ORDERS Last Admin: 03/26/20 22:41 Dose: 10 ml Documented by: Sodium Chloride (Normal Saline Flush 0.9%) 10 ml IVP 0100,0900,1700 [facility] Last Admin: 03/27/20 00:34 Dose: 10 ml Documented by: Levothyroxine [Synthroid] 100 mcg PO DAILY 05/13/17 Escitalopram Oxalate [Lexapro] 5 mg PO DAILY 03/26/20 Losartan Potassium 100 mg PO DAILY 03/26/20 Omeprazole 40 mg PO DAILY 03/26/20 Allergies/Adverse Reactions: Allergies Allergy/AdvReac Type Severity Reaction Status Date / Time erythromycin base Allergy Mild Nausea Verified 10/27/18 14:59 Penicillins Allergy Mild Rash Verified 10/27/18 14:59 clindamycin Allergy Rash Verified 10/28/18 12:41 Anes History & Medical History - Anesthetic History Anesthesia Complications: reports: No previous complications - Medical History Cardiovascular: reports: Hypertension, Valve disorder (Aortic regurgitation, preserved EF) Pulmonary: reports: None Gastrointestinal: reports: GERD Urinary: reports: None Neuro: reports: None Musculoskeletal: reports: Osteoporosis Endocrine/Autoimmune: reports: HyPOthyroidism Blood Disorders: reports: None Skin: reports: None Smoking Status: Former smoker Psychosocial: reports: No issues indicated History of Cancer?: No Other Past Medical History: Hemachromatosis - Surgical History Gynecologic: Hysterectomy Dermatologic: Other Results - EKG Results EKG Comparison: Reviewed EKG - Echo Results Echo Results: Report reviewed Exam General: Alert, Oriented x3, Cooperative, No acute distress Dental: WNL Mouth Openin Fingerbreadth Neck Mobility: Normal Mallampati classification: II Thyromental Distance: 4-6 cm Respiratory: Lungs clear, Normal breath sounds, No respiratory distress, No accessory muscle use Cardiovascular: Regular rate, Normal S1, Normal S2, No murmurs Mental/Cognitive Status: Alert/Oriented X3, Normal for patient Plan Anesthesia Type: General, Fascia Iliaca Block (right) Regional Block: Per Surgeon's request for Post Op pain control Consent for Procedure(s) Verified and Reviewed: Yes Code Status: Attempt Resuscitation ASA classification: 2-Mild systemic disease Is this case an emergency?: No
[2020-03-27 08:17] LABS: ABSOLUTE RETICS # AUTO 0.039 10^6/uL (0.020-0.110); RED BLOOD COUNT 3.08 10^6/uL (4.20-5.40)
[2020-03-27 08:30] LABS: % IRON SATURATION 60 % (20-50); IRON 157 ug/dL (28-170); TOTAL IRON BINDING CAPACITY 260 ug/dL (250-450); TRANSFERRIN 186 mg/dL (192-382)
[2020-03-27] MEDS ORDERED: LEVOTHYROXINE 100 MCG TABLET PO SCH (09:00)
[2020-03-27] MEDS ORDERED: ENOXAPARIN 40 MG/0.4 ML SYRINGE SUBQ SCH (09:00)
[2020-03-27] MEDS ORDERED: HYDROmorphone 0.5 MG/0.5 ML SYRINGE IVP PRN (10:00)
[2020-03-27] MEDS ORDERED: ONDANSETRON 4 MG/2 ML VIAL IVP PRN ×2 (10:00→11:05)
[2020-03-27] MEDS ORDERED: ATROPINE ABBOJECT 1 MG/10 ML SYRINGE IVP PRN (10:00)
[2020-03-27] MEDS ORDERED: NALOXONE 0.4 MG/ML VIAL IVP PRN (10:00)
[2020-03-27] MEDS ORDERED: MORPHINE 2 MG/ML CARPUJECT IVP PRN (10:00)
[2020-03-27] MEDS ORDERED: ACETAMINOPHEN 1,000 MG/100 ML 100 ML IV ONE (10:00)
[2020-03-27] MEDS ORDERED: fentaNYL 100 MCG/2 ML VIAL IVP PRN (10:00)
[2020-03-27] MEDS ORDERED: LACTATED RINGERS 1,000 ML IV ONE (10:54)
--- NOTE | 2020-03-27 11:24 | ANESTHESIA POST OP EVALUATION ---
Anesthesia Post Eval - Post Anesthesia Eval Vitals: Last Vital Signs Temp 36.0 C L 03/27/20 11:00 Pulse 71 03/27/20 11:15 Resp 17 03/27/20 11:15 BP 113/44 L 03/27/20 11:15 Pulse Ox 99 03/27/20 11:15 CV Function Including HR & BP: positive: Stable Pain Control: positive: Satisfactory Nausea & Vomiting: positive: Negative Mental Status: positive: Baseline Respiratory Status: Airway Patent Hydration Status: Satisfactory Anesthesia Complications: positive: None
--- NOTE | 2020-03-27 11:25 | OPERATIVE REPORT ---
Operative Report - General Admit Date: 03/26/20 Procedure Date: 03/27/20 Planned Procedure: Open reduction internal fixation right hip fracture Pre-Op Diagnosis: Displaced reverse obliquity intertrochanteric fracture right hip Procedure Performed: Open reduction internal fixation right hip fracture with Torres & Nephew InterTAN, short distally locked nail Post Op Diagnosis: Same as preoperative diagnosis - Procedure Note Primary Surgeon: Romario Lamar MD Anesthesia Provider: Zoya Potts Anesthesia Technique: General LMA, Regional block Estimated Blood Loss (mL): 50 Indications: This is a relatively healthy, active 79-year-old woman who fell yesterday and sustained a isolated injury to her right hip. She sustained a reverse obliquity fracture of the right hip intertrochanteric region. She had pain on exam, clinical deformity on exam and abnormal x-ray of right hip. She was evaluated preoperatively by her hospitalist, Dr. Chin; no contraindications to surgery noted. Findings: She had a reverse obliquity intertrochanteric fracture with some comminution. The proximal fragment was abducted and flexed. Complications: None noted - Other Other Information/Narrative: The patient was brought to the operating room table. She was placed in the supine position on the OSI/MizunoFracture table. The right foot was placed in boot traction and the foot was padded. The left leg was placed in a well-leg akers. After satisfactory anesthesia, traction was applied to the operative leg and the C arm image intensifier was utilized to help visualize the reduction. The lateral view showed that the proximal fragment was flexed and not in good alignment but this improved with traction and elevation with use of a crutch to the buttock area. A timeout procedure was performed by the entire operating room team. The right lower extremity was prepped and draped in a sterile manner in the usual fashion with a vertical transparent barrier. A 2- 1/2 cm incision was made proximal to the greater trochanter. The subcutaneous tissue and fascia were split in line with the incision. The gluteus was split with blunt dissection. A starting awl was used to engage the starting point for passage of a long intramedullary guidepin that was inserted using both AP and lateral C-arm imaging. A crutch was brought in to correct the malalignment on the lateral view to allow for concentric reaming with the entry reamer. The short intramedullary walker was then introduced over the long flexible guidepin. This had a good position on the lateral view. On the AP view there was still some abduction of the proximal fragment. This abduction was reduced with direct pressure overlying the distal end of the proximal fracture fragment. A second incision was made for the lag screw. This incision was 1.5 cm. A guidepin was inserted in the midline on both AP and lateral C-arm images of the right hip the depth of the guidepin was measured and found to be 100 mm. The guidepin was impacted into the head. The 2 drills for the compression screw were then utilized. Reaming over the lag screw guide pin was performed. 100 mm lag screw was inserted and seated well. Traction was released. The compression screw was inserted. The abducted proximal fragment reduced well.A third incision was made for the distal cortical locking screw using drill guide and drill bit. There was good purchase of the distal screw. Final C arm images were obtained in AP and lateral views and show satisfactory alignment and fixation and fracture. The wounds were irrigated. The subcutaneous tissue was closed with 2-0 Vicryl. The skin was closed with Monocryl 3-0 subcuticular suture. Dermabond was applied to the incisions. A silver impregnated dressing was applied as well. There was no clinical deformity to the right leg at the completion. She tolerated the procedure well. She received 2 g of Ancef prior to the incision and a gram oftranexamic acid
[2020-03-27] MEDS: ESCITALOPRAM 10 MG TABLET PO SCH (12:48)
[2020-03-27] MEDS: PANTOPRAZOLE 40 MG TABLET PO SCH (12:50)
[2020-03-27] MEDS ORDERED: SODIUM CHLORIDE 0.9% 1,000 ML IV SCH (13:00)
--- NOTE | 2020-03-27 13:00 | XRAY Report ---
PROCEDURE: OR C-Arm Procedure INDICATIONS: RIGHT HIP NAILING TECHNIQUE: Sequential C-arm fluoroscopic assistance was utilized in orthopedic surgical fracture fixa tion. COMPARISON: Acute trauma plain film imaging from one day ago reviewed.. FINDINGS: Sequential placement of a medullary walker is documented, with subsequent placement of 2 cannulated fixa tion dynamic hip screws, extending normally into the femoral head and establishing near-anatomic alig nment along the complex previously identified vertically oriented intertrochanteric hip fracture. IMPRESSION: Virtual anatomic alignment established after medullary walker and 2 dynamic hip screws placed for fixati on of a intertrochanteric right hip fracture. Reviewed by: Clark Guthrie MD on 03/27/2020 12:59 PM PDT Approved by: Clark Guthrie MD on 03/27/2020 12:59 PM PDT Station ID: [id number]
[2020-03-27] MEDS: SODIUM CHLORIDE 0.9% 1,000 ML IV SCH ×2 (13:01→22:40)
[2020-03-27] MEDS: ACETAMINOPHEN 1,000 MG/100 ML 100 ML IV PRN ×2 (13:11→20:29)
--- NOTE | 2020-03-27 16:30 | PROVIDER PROGRESS NOTE ---
Assessment/Plan - Problem List (1) Closed right hip fracture Qualifiers: Encounter type: initial encounter Qualified Code(s): S72.001A - Fracture of unspecified part of neck of right femur, initial encounter for closed fracture Assessment/Plan: Patient had surgery on today. Physical therapist already evaluated and treated patient. Patient is doing well. She has no complaints now. We will continue PT, OT. Continue pain control, continue aspirin twice daily for DVT prophylaxis. (2) Preop examination Conclusion/Plan: No complication as far status post of right hip repair. (3) Aortic regurgitation Conclusion/Plan: Her ejection fraction was preserved at 60%. This can be followed up on outpatient basis. She has no complication status post surgery as far. Patient is doing well, physical therapist already evaluation and treated patient. Continue telemetry and vital signs monitor patient (4) Hypertension Conclusion/Plan: Stable. (5) Hypothyroidism Conclusion/Plan: will check TSH, We will continue her home dose of Synthroid. (6) Hemochromatosis Conclusion/Plan: Stable. Status post of operation, we will do one-time H&H to monitor HGB. - Current Meds Current Meds: Current Medications Generic Name Dose Route Start Last Admin Trade Name Freq PRN Reason Stop Dose Admin Escitalopram Oxalate 5 mg 03/27/20 09:00 03/27/20 12:48 Lexapro PO 5 mg DAILY [facility] Administration Acetaminophen 100 mls @ 400 mls/hr 03/27/20 11:05 03/27/20 13:26 Ofirmev IV Infused Q6HR PRN Infusion PAIN Sodium Chloride 1,000 mls @ 100 mls/hr 03/27/20 13:00 03/27/20 13:01 Normal Saline 0.9% IV 03/28/20 08:59 100 mls/hr .Q10H [facility] Administration Levothyroxine Sodium 100 mcg 03/27/20 09:00 03/27/20 12:51 Synthroid PO 100 mcg DAILY [facility] Administration Oxycodone HCl 5 mg 03/26/20 12:35 03/26/20 18:55 Roxicodone PO 5 mg Q4HR PRN Administration Pain 5 to 7 Pantoprazole Sodium 40 mg 03/27/20 09:00 03/27/20 12:50 Protonix PO 40 mg DAILY [facility] Administration - Lab Result Fish Bone Diagrams: 03/27/20 05:14 03/27/20 05:14 - Additional Planning My Orders: My Active Orders 03/27/20 12:50 Morphine Inj (Carpuject) [Morphine (Carpuject)] 2 mg IVP Q2HR PRN 03/27/20 13:00 Sodium Chloride 0.9% [Normal Saline 0.9%] 1,000 ml IV 100 mls/hr 03/27/20 21:00 Aspirin [El] 325 mg PO BID 03/28/20 05:00 TSH [THYROID STIMULATING HORMONE] [IAI] DAILYLAB Subjective - Subjective Patient Reports: Feeling Better Objective Vital Signs: Vital Signs - 24 hr 03/26/20 03/27/20 03/27/20 21:00 00:35 04:37 Temperature 36.7 C 36.8 C 37.0 C Heart Rate Heart Rate [ Activity] Heart Rate [ 54 L 55 L 52 L Monitoring electrodes] Heart Rate [ Sitting] Heart Rate [ Supine] Respiratory 18 16 16 Rate Blood Pressure Blood Pressure [Activity] Blood Pressure 107/63 124/60 114/51 L [Right Brachial artery] Blood Pressure [Sitting] Blood Pressure [Supine] O2 Saturation 95 95 100 03/27/20 03/27/20 03/27/20 07:57 10:54 11:00 Temperature 37.1 C 36.0 C L Heart Rate 75 64 Heart Rate [ Activity] Heart Rate [ 62 Monitoring electrodes] Heart Rate [ Sitting] Heart Rate [ Supine] Respiratory 18 16 15 Rate Blood Pressure 102/65 107/59 L Blood Pressure [Activity] Blood Pressure 120/57 L [Right Brachial artery] Blood Pressure [Sitting] Blood Pressure [Supine] O2 Saturation 98 100 100 03/27/20 03/27/20 03/27/20 11:05 11:10 11:15 Temperature Heart Rate 65 65 71 Heart Rate [ Activity] Heart Rate [ Monitoring electrodes] Heart Rate [ Sitting] Heart Rate [ Supine] Respiratory 15 15 17 Rate Blood Pressure 96/62 98/53 L 113/44 L Blood Pressure [Activity] Blood Pressure [Right Brachial artery] Blood Pressure [Sitting] Blood Pressure [Supine] O2 Saturation 98 100 99 03/27/20 03/27/20 03/27/20 11:20 11:25 11:45 Temperature 36.1 C L 36.1 C L 36.1 C L Heart Rate 63 66 Heart Rate [ Activity] Heart Rate [ 63 Monitoring electrodes] Heart Rate [ Sitting] Heart Rate [ Supine] Respiratory 20 20 18 Rate Blood Pressure 106/59 L 108/64 Blood Pressure [Activity] Blood Pressure 99/56 L [Right Brachial artery] Blood Pressure [Sitting] Blood Pressure [Supine] O2 Saturation 98 63 L 93 03/27/20 03/27/20 03/27/20 12:15 13:00 14:00 Temperature 36.4 C L 36.3 C L 36.5 C Heart Rate Heart Rate [ Activity] Heart Rate [ 64 62 68 Monitoring electrodes] Heart Rate [ Sitting] Heart Rate [ Supine] Respiratory 20 16 20 Rate Blood Pressure Blood Pressure [Activity] Blood Pressure 108/52 L 109/61 110/49 L [Right Brachial artery] Blood Pressure [Sitting] Blood Pressure [Supine] O2 Saturation 93 99 97 03/27/20 03/27/20 15:15 15:36 Temperature 36.5 C Heart Rate Heart Rate [ 69 Activity] Heart Rate [ 68 Monitoring electrodes] Heart Rate [ 99 Sitting] Heart Rate [ 68 Supine] Respiratory 18 Rate Blood Pressure Blood Pressure 109/55 L [Activity] Blood Pressure 103/60 [Right Brachial artery] Blood Pressure 109/56 L [Sitting] Blood Pressure 103/60 [Supine] O2 Saturation 96 Oxygen O2 Source Room air I&O (Last 24 Hrs): Intake and Output Totals x24h 03/25/20 03/26/20 03/27/20 23:59 23:59 23:59 Intake Total 3025 1100 Output Total 975 910 Balance 205 190 General: Alert, Oriented x3, Cooperative, No acute distress HEENT: Atraumatic Neck: Supple Lymphatic: no adenopathy Neuro: Alert, Non Focal, Oriented Times 3 Cardiovascular: Regular rate, Normal S1, Normal S2 Respiratory: Chest non-tender, No respiratory distress, Breath sounds nml Abdomen: Normal bowel sounds, Soft, No tenderness Extremities: Normal pulses - Results Results: Laboratory Results WBC 5.8 x10^3/uL (4.8-10.8) 03/27/20 05:14 RBC 3.08 10^6/uL (4.20-5.40) L 03/27/20 08:04 Hgb 9.4 g/dL (12.0-16.0) L 03/27/20 05:14 Hct 30.4 % (37.0-47.0) L 03/27/20 05:14 MCV 96.2 fL (81.0-99.0) 03/27/20 05:14 MCH 29.7 pg (27.0-31.0) 03/27/20 05:14 MCHC 30.9 g/dL (32.0-36.0) L 03/27/20 05:14 RDW 13.2 % (12.0-15.0) 03/27/20 05:14 Plt Count 156 10^3/uL (130-450) 03/27/20 05:14 MPV 9.9 fL (7.9-10.8) 03/27/20 05:14 Reticulocyte % (Auto) 1.28 % (0.5-2.3) 03/27/20 08:04 Neut # (Auto) 4.0 10^3/uL (1.5-6.6) 03/27/20 05:14 Lymph # (Auto) 1.0 10^3/uL (1.5-3.5) L 03/27/20 05:14 [place] # (Auto) 0.7 10^3/uL (0.0-1.0) 03/27/20 05:14 Eos # (Auto) 0.1 10^3/uL (0.0-0.7) 03/27/20 05:14 Baso # (Auto) 0.0 10^3/uL (0.0-0.1) 03/27/20 05:14 Absolute Nucleated RBC 0.00 x10^3/uL 03/27/20 05:14 Nucleated RBC % 0.0 /100WBC 03/27/20 05:14 Absolute Retic 0.039 10^6/uL (0.020-0.110) 03/27/20 08:04 PT 12.3 secs (9.9-12.6) 03/26/20 11:50 INR 1.1 (0.8-1.2) 03/26/20 11:50 Sodium 136 mmol/L (135-145) 03/27/20 05:14 Potassium 3.6 mmol/L (3.5-5.0) 03/27/20 05:14 Chloride 105 mmol/L (101-111) 03/27/20 05:14 Carbon Dioxide 23 mmol/L (21-32) 03/27/20 05:14 Anion Gap 8.0 (6-13) 03/27/20 05:14 BUN 16 mg/dL (6-20) 03/27/20 05:14 Creatinine 0.8 mg/dL (0.4-1.0) 03/27/20 05:14 Estimated GFR (MDRD) 69 (>89) L 03/27/20 05:14 Glucose 114 mg/dL (70-100) H 03/27/20 05:14 Calcium 8.4 mg/dL (8.5-10.3) L 03/27/20 05:14 Phosphorus 3.4 mg/dL (2.5-4.6) 03/27/20 05:14 Magnesium 2.2 mg/dL (1.7-2.8) 03/27/20 05:14 Iron 157 ug/dL (28-170) 03/27/20 08:04 TIBC 260 ug/dL (250-450) 03/27/20 08:04 % Saturation 60 % (20-50) H 03/27/20 08:04 Transferrin 186 mg/dL (192-382) L 03/27/20 08:04 Ferritin 15.0 ng/mL (11.0-306.8) 03/27/20 08:04 Total Bilirubin 0.8 mg/dL (0.2-1.0) 03/26/20 11:50 AST 21 IU/L (10-42) 03/26/20 11:50 ALT 12 IU/L (10-60) 03/26/20 11:50 Alkaline Phosphatase 77 IU/L (42-121) 03/26/20 11:50 Lactate Dehydrogenase 108 IU/L (91-225) 03/27/20 08:04 Total Protein 5.9 g/dL (6.7-8.2) L 03/26/20 11:50 Albumin 3.6 g/dL (3.2-5.5) 03/26/20 11:50 Globulin 2.3 g/dL (2.1-4.2) 03/26/20 11:50 Albumin/Globulin Ratio 1.6 (1.0-2.2) 03/26/20 11:50 Lipase 44 U/L (22-51) 03/26/20 11:50 Vitamin B12 957 pg/mL (180-914) H 03/27/20 08:04 Blood Type O POSITIVE 03/26/20 11:50 Blood Type Recheck O POSITIVE 03/27/20 08:04 Antibody Screen NEGATIVE 03/26/20 11:50 - Procedures Procedures: Procedures EXCISION OF STOMACH, PYLORUS, ENDO, DIAGN (10/28/18) ABX Reporting Has patient been on IV antibiotics over the past 48 hours?: No Current Medications - Current Medications Current Medications: Active Medications Acetaminophen (Tylenol) 650 - 975 mg PO Q4HR PRN PRN Reason: PAIN Aspirin (El) 325 mg PO BID [facility] Escitalopram Oxalate (Lexapro) 5 mg PO DAILY [facility] Last Admin: 03/27/20 12:48 Dose: 5 mg Documented by: Acetaminophen (Ofirmev) 100 mls @ 400 mls/hr IV Q6HR PRN PRN Reason: PAIN Last Infusion: 03/27/20 13:26 Dose: Infused Documented by: Cefazolin Sodium 2 gm/ Sodium (Chloride) 100 mls @ 200 mls/hr IV Q8H [facility] Stop: 03/28/20 01:29 Last Admin: 03/27/20 16:43 Dose: 200 mls/hr Documented by: Sodium Chloride (Normal Saline 0.9%) 1,000 mls @ 100 mls/hr IV .Q10H [facility] Stop: 03/28/20 08:59 Last Admin: 03/27/20 13:01 Dose: 100 mls/hr Documented by: Levothyroxine Sodium (Synthroid) 100 mcg PO DAILY [facility] Last Admin: 03/27/20 12:51 Dose: 100 mcg Documented by: Morphine Sulfate (Morphine (Carpuject)) 2 mg IVP Q2HR PRN PRN Reason: PAIN Ondansetron HCl (Zofran Odt) 4 mg TL Q6HR PRN PRN Reason: Nausea / Vomiting Ondansetron HCl (Zofran Inj) 4 mg IVP Q6HR PRN PRN Reason: Nausea / Vomiting Oxycodone HCl (Roxicodone) 5 mg PO Q4HR PRN PRN Reason: Pain 5 to 7 Last Admin: 03/26/20 18:55 Dose: 5 mg Documented by: Pantoprazole Sodium (Protonix) 40 mg PO DAILY [facility] Last Admin: 03/27/20 12:50 Dose: 40 mg Documented by: Sodium Chloride (Normal Saline Flush 0.9%) 10 ml IVP 0100,0900,1700 [facility] Last Admin: 03/27/20 16:42 Dose: Not Given Documented by: Sodium Chloride (Normal Saline Flush 0.9%) 10 ml IVP PRN PRN PRN Reason: NEEDED PER PROVIDER ORDERS Levothyroxine [Synthroid] 100 mcg PO DAILY 05/13/17 Escitalopram Oxalate [Lexapro] 5 mg PO DAILY 03/26/20 Losartan Potassium 100 mg PO DAILY 03/26/20 Omeprazole 40 mg PO DAILY 03/26/20
[2020-03-27] MEDS: ceFAZolin 2 GM in SODIUM CHLORIDE 0.9% 100ML 100 ML IV SCH (16:43)
[2020-03-27 20:27] LABS: HGB - HEMOGLOBIN 8.4 g/dL (12.0-16.0)
[2020-03-27] MEDS: ASPIRIN 325 MG TABLET PO SCH (20:29)
[2020-03-28] MEDS: ceFAZolin 2 GM in SODIUM CHLORIDE 0.9% 100ML 100 ML IV SCH (00:33)
[2020-03-28] MEDS: SODIUM CHLORIDE FLUSH 0.9% 10 ML SYRINGE IVP SCH ×3 (00:33→10:59)
[2020-03-28] MEDS: ACETAMINOPHEN 1,000 MG/100 ML 100 ML IV PRN (01:58)
[2020-03-28 04:53] LABS: BASOPHILS % (AUTO) 0.1 %; EOSINOPHILS % (AUTO) 0.1 %; HGB - HEMOGLOBIN 7.4 g/dL (12.0-16.0); LYMPHOCYTES # (AUTO) 0.9 10^3/uL (1.5-3.5); LYMPHOCYTES % (AUTO) 12.3 %; MEAN CORPUSCULAR HEMOGLOBIN 30.2 pg (27.0-31.0); MEAN CORPUSCULAR HGB CONC 31.4 g/dL (32.0-36.0); MEAN CORPUSCULAR VOLUME 96.3 fL (81.0-99.0); MONOCYTES # (AUTO) 0.8 10^3/uL (0.0-1.0); MONOCYTES % (AUTO) 11.2 %; NEUTROPHILS # (AUTO) 5.5 10^3/uL (1.5-6.6); NEUTROPHILS % (AUTO) 75.7 %; PLT - PLATELET COUNT 119 10^3/uL (130-450); RED BLOOD COUNT 2.45 10^6/uL (4.20-5.40); RED CELL DISTRIBUTION WIDTH 13.3 % (12.0-15.0); WHITE BLOOD COUNT 7.2 x10^3/uL (4.8-10.8)
[2020-03-28 05:06] LABS: CALCIUM 7.9 mg/dL (8.5-10.3); CREATININE 0.8 mg/dL (0.4-1.0)
[2020-03-28] MEDS: ACETAMINOPHEN 325 MG TABLET PO PRN ×2 (05:36→21:26)
[2020-03-28] MEDS ORDERED: ONDANSETRON 4 MG/2 ML VIAL IVP ONE (07:52)
[2020-03-28] MEDS ORDERED: NEOSTIGMINE 1 MG/1 ML 10 ML MDV IVP ONE (07:52)
[2020-03-28] MEDS ORDERED: fentaNYL 100 MCG/2 ML VIAL IVP ONE (07:52)
[2020-03-28] MEDS ORDERED: PROPOFOL 200 MG/20 ML VIAL IVP ONE (07:52)
[2020-03-28] MEDS ORDERED: ePHEDrine 50 MG/ML VIAL IVP ONE (07:52)
[2020-03-28] MEDS ORDERED: PHENYLEPHRINE IV ONE (08:27)
[2020-03-28] MEDS ORDERED: SODIUM CHLORIDE 0.9% IV ONE (08:27)
[2020-03-28] MEDS: PANTOPRAZOLE 40 MG TABLET PO SCH (09:09)
[2020-03-28] MEDS: ESCITALOPRAM 10 MG TABLET PO SCH (09:09)
[2020-03-28] MEDS: ASPIRIN 325 MG TABLET PO SCH ×2 (09:09→20:55)
[2020-03-28] MEDS: MORPHINE 2 MG/ML CARPUJECT IVP PRN ×2 (09:10→13:48)
[2020-03-28] MEDS: LEVOTHYROXINE 88 MCG TABLET PO SCH (10:57)
[2020-03-28] MEDS: oxyCODONE 5 MG TABLET PO PRN ×2 (10:57→18:47)
[2020-03-28 12:13] LABS: HGB - HEMOGLOBIN 8.1 g/dL (12.0-16.0)
[2020-03-28] MEDS: SODIUM CHLORIDE FLUSH 0.9% 10 ML SYRINGE IVP PRN ×2 (13:48→18:48)
--- NOTE | 2020-03-28 15:03 | PROVIDER PROGRESS NOTE ---
Assessment/Plan - Problem List (1) Closed right hip fracture Qualifiers: Encounter type: initial encounter Qualified Code(s): S72.001A - Fracture of unspecified part of neck of right femur, initial encounter for closed fracture Assessment/Plan: 107, Patient Is day 1 status post of right hip repair. Patient doing well, patient will have physical therapist, occupational therapy evaluation and treatment. Patient had surgery on today. Physical therapist already evaluated and treated patient. Patient is doing well. She has no complaints now. We will continue PT, OT. Continue pain control, continue aspirin twice daily for DVT prophylaxis. (2)postoperative anemia Patient has anemia 7.4, this is day 1 patient with status post right hip repair.We will H&H to monitor patient hemoglobin, Might transfusion blood if n eeded (2) Preop examination Conclusion/Plan: No complication as far status post of right hip repair. (3) Aortic regurgitation Conclusion/Plan: Her ejection fraction was preserved at 60%. This can be followed up on outpa tient basis. She has no complication status post surgery as far. Patient is doing well, physical therapist already evaluation and treated patient. Continue telemetry and vital signs monitor patient (4) Hypertension Conclusion/Plan: Stable. (5) Hypothyroidism Conclusion/Plan: 03-28, patient TSH is low, will reduce to Synthroid 88 mcg daily, Follow-up PCP for further management will check TSH, We will continue her home dose of Synthroid. (6) Hemochromatosis Conclusion/Plan: Stable. Status post of operation, we will do one-time H&H to monitor HGB. - Current Meds Current Meds: Current Medications Generic Name Dose Route Start Last Admin Trade Name Freq PRN Reason Stop Dose Admin Acetaminophen 650 - 975 mg 03/27/20 11:05 03/28/20 05:36 Tylenol PO 650 mg Q4HR PRN Administration PAIN Aspirin 325 mg 03/27/20 21:00 03/28/20 09:09 El PO 325 mg BID [facility] Administration Escitalopram Oxalate 5 mg 03/27/20 09:00 03/28/20 09:09 Lexapro PO 5 mg DAILY [facility] Administration Levothyroxine Sodium 88 mcg 03/28/20 11:00 03/28/20 10:57 Synthroid PO 88 mcg QDAC [facility] Administration Morphine Sulfate 2 mg 03/27/20 12:50 03/28/20 13:48 Morphine (Carpuject) IVP 2 mg Q2HR PRN Administration PAIN Oxycodone HCl 5 mg 03/26/20 12:35 03/28/20 10:57 Roxicodone PO 5 mg Q4HR PRN Administration Pain 5 to 7 Pantoprazole Sodium 40 mg 03/27/20 09:00 03/28/20 09:09 Protonix PO 40 mg DAILY [facility] Administration Sodium Chloride 10 ml 03/27/20 17:00 03/28/20 10:59 Normal Saline Flush 0.9% IVP 10 ml 0100,0900,1700 [facility] Administration Sodium Chloride 10 ml 03/27/20 11:05 03/28/20 13:48 Normal Saline Flush 0.9% IVP 10 ml PRN PRN Administration NEEDED PER PROVIDER ORDERS - Lab Result Fish Bone Diagrams: 03/28/20 12:06 03/28/20 04:40 - Additional Planning My Orders: My Active Orders 03/27/20 21:00 Aspirin [El] 325 mg PO BID 03/28/20 11:00 Levothyroxine [Synthroid] 88 mcg PO QDAC 03/28/20 13:00 COVID-19 REFERENCE TEST Routine 03/28/20 21:00 Calcium Carbonate [Tums] 500 mg PO BID 03/29/20 09:00 Cholecalciferol [Vitamin D3] 800 unit PO DAILY Subjective - Subjective Patient Reports: Feeling Better Objective Vital Signs: Vital Signs - 24 hr 03/27/20 03/27/20 03/27/20 15:15 15:36 19:50 Temperature 36.5 C 36.6 C Heart Rate [ 69 Activity] Heart Rate [ 68 72 Monitoring electrodes] Heart Rate [ 99 Sitting] Heart Rate [ 68 Supine] Respiratory 18 18 Rate Blood Pressure 109/55 L [Activity] Blood Pressure 103/60 108/55 L [Right Brachial artery] Blood Pressure 109/56 L [Sitting] Blood Pressure 103/60 [Supine] O2 Saturation 96 97 03/28/20 03/28/20 03/28/20 00:15 03:05 08:05 Temperature 37.0 C 36.6 C 36.6 C Heart Rate [ Activity] Heart Rate [ 69 67 66 Monitoring electrodes] Heart Rate [ Sitting] Heart Rate [ Supine] Respiratory 16 16 17 Rate Blood Pressure [Activity] Blood Pressure 100/50 L 109/66 122/62 [Right Brachial artery] Blood Pressure [Sitting] Blood Pressure [Supine] O2 Saturation 93 93 93 03/28/20 13:00 Temperature 36.7 C Heart Rate [ Activity] Heart Rate [ 66 Monitoring electrodes] Heart Rate [ Sitting] Heart Rate [ Supine] Respiratory 16 Rate Blood Pressure [Activity] Blood Pressure 110/60 [Right Brachial artery] Blood Pressure [Sitting] Blood Pressure [Supine] O2 Saturation 95 Oxygen O2 Source Room air I&O (Last 24 Hrs): Intake and Output Totals x24h 03/26/20 03/27/20 03/28/20 23:59 23:59 23:59 Intake Total 3025 2565 2080 Output Total 975 1460 1800 Balance 2049 1105 280 General: Alert, Oriented x3, No acute distress HEENT: Atraumatic Neck: Supple Lymphatic: no adenopathy Neuro: Alert, Non Focal, Oriented Times 3 Cardiovascular: Regular rate, Normal S1, Normal S2 Respiratory: Chest non-tender, No respiratory distress, Breath sounds nml Abdomen: Normal bowel sounds, Soft, No tenderness Extremities: Normal pulses - Results Results: Laboratory Results WBC 7.2 x10^3/uL (4.8-10.8) 03/28/20 04:40 RBC 2.45 10^6/uL (4.20-5.40) L 03/28/20 04:40 Hgb 8.1 g/dL (12.0-16.0) L 03/28/20 12:06 Hct 26.4 % (37.0-47.0) L 03/28/20 12:06 MCV 96.3 fL (81.0-99.0) 03/28/20 04:40 MCH 30.2 pg (27.0-31.0) 03/28/20 04:40 MCHC 31.4 g/dL (32.0-36.0) L 03/28/20 04:40 RDW 13.3 % (12.0-15.0) 03/28/20 04:40 Plt Count 119 10^3/uL (130-450) L 03/28/20 04:40 MPV 10.0 fL (7.9-10.8) 03/28/20 04:40 Reticulocyte % (Auto) 1.28 % (0.5-2.3) 03/27/20 08:04 Neut # (Auto) 5.5 10^3/uL (1.5-6.6) 03/28/20 04:40 Lymph # (Auto) 0.9 10^3/uL (1.5-3.5) L 03/28/20 04:40 [place] # (Auto) 0.8 10^3/uL (0.0-1.0) 03/28/20 04:40 Eos # (Auto) 0.0 10^3/uL (0.0-0.7) 03/28/20 04:40 Baso # (Auto) 0.0 10^3/uL (0.0-0.1) 03/28/20 04:40 Absolute Nucleated RBC 0.00 x10^3/uL 03/28/20 04:40 Nucleated RBC % 0.0 /100WBC 03/28/20 04:40 Absolute Retic 0.039 10^6/uL (0.020-0.110) 03/27/20 08:04 PT 12.3 secs (9.9-12.6) 03/26/20 11:50 INR 1.1 (0.8-1.2) 03/26/20 11:50 Sodium 138 mmol/L (135-145) 03/28/20 04:40 Potassium 4.1 mmol/L (3.5-5.0) 03/28/20 04:40 Chloride 108 mmol/L (101-111) 03/28/20 04:40 Carbon Dioxide 23 mmol/L (21-32) 03/28/20 04:40 Anion Gap 7.0 (6-13) 03/28/20 04:40 BUN 13 mg/dL (6-20) 03/28/20 04:40 Creatinine 0.8 mg/dL (0.4-1.0) 03/28/20 04:40 Estimated GFR (MDRD) 69 (>89) L 03/28/20 04:40 Glucose 116 mg/dL (70-100) H 03/28/20 04:40 Calcium 7.9 mg/dL (8.5-10.3) L 03/28/20 04:40 Phosphorus 3.0 mg/dL (2.5-4.6) 03/28/20 04:40 Magnesium 2.0 mg/dL (1.7-2.8) 03/28/20 04:40 Iron 157 ug/dL (28-170) 03/27/20 08:04 TIBC 260 ug/dL (250-450) 03/27/20 08:04 % Saturation 60 % (20-50) H 03/27/20 08:04 Transferrin 186 mg/dL (192-382) L 03/27/20 08:04 Ferritin 15.0 ng/mL (11.0-306.8) 03/27/20 08:04 Total Bilirubin 0.8 mg/dL (0.2-1.0) 03/26/20 11:50 AST 21 IU/L (10-42) 03/26/20 11:50 ALT 12 IU/L (10-60) 03/26/20 11:50 Alkaline Phosphatase 77 IU/L (42-121) 03/26/20 11:50 Lactate Dehydrogenase 108 IU/L (91-225) 03/27/20 08:04 Total Protein 5.9 g/dL (6.7-8.2) L 03/26/20 11:50 Albumin 3.6 g/dL (3.2-5.5) 03/26/20 11:50 Globulin 2.3 g/dL (2.1-4.2) 03/26/20 11:50 Albumin/Globulin Ratio 1.6 (1.0-2.2) 03/26/20 11:50 Lipase 44 U/L (22-51) 03/26/20 11:50 Vitamin B12 957 pg/mL (180-914) H 03/27/20 08:04 TSH 0.26 uIU/mL (0.34-5.60) L 03/28/20 04:40 Blood Type O POSITIVE 03/26/20 11:50 Blood Type Recheck O POSITIVE 03/27/20 08:04 Antibody Screen NEGATIVE 03/26/20 11:50 - Procedures Procedures: Procedures EXCISION OF STOMACH, PYLORUS, ENDO, DIAGN (10/28/18) ABX Reporting Has patient been on IV antibiotics over the past 48 hours?: No Current Medications - Current Medications Current Medications: Active Medications Acetaminophen (Tylenol) 650 - 975 mg PO Q4HR PRN PRN Reason: PAIN Last Admin: 03/28/20 05:36 Dose: 650 mg Documented by: Aspirin (El) 325 mg PO BID [facility] Last Admin: 03/28/20 09:09 Dose: 325 mg Documented by: Calcium Carbonate/Glycine (Tums) 500 mg PO BID [facility] Cholecalciferol (Vitamin D3) 800 unit PO DAILY [facility] Escitalopram Oxalate (Lexapro) 5 mg PO DAILY [facility] Last Admin: 03/28/20 09:09 Dose: 5 mg Documented by: Levothyroxine Sodium (Synthroid) 88 mcg PO QDAC [facility] Last Admin: 03/28/20 10:57 Dose: 88 mcg Documented by: Morphine Sulfate (Morphine (Carpuject)) 2 mg IVP Q2HR PRN PRN Reason: PAIN Last Admin: 03/28/20 13:48 Dose: 2 mg Documented by: Ondansetron HCl (Zofran Odt) 4 mg TL Q6HR PRN PRN Reason: Nausea / Vomiting Ondansetron HCl (Zofran Inj) 4 mg IVP Q6HR PRN PRN Reason: Nausea / Vomiting Oxycodone HCl (Roxicodone) 5 mg PO Q4HR PRN PRN Reason: Pain 5 to 7 Last Admin: 03/28/20 10:57 Dose: 5 mg Documented by: Pantoprazole Sodium (Protonix) 40 mg PO DAILY [facility] Last Admin: 03/28/20 09:09 Dose: 40 mg Documented by: Sodium Chloride (Normal Saline Flush 0.9%) 10 ml IVP 0100,0900,1700 [facility] Last Admin: 03/28/20 10:59 Dose: 10 ml Documented by: Sodium Chloride (Normal Saline Flush 0.9%) 10 ml IVP PRN PRN PRN Reason: NEEDED PER PROVIDER ORDERS Last Admin: 03/28/20 13:48 Dose: 10 ml Documented by: Levothyroxine [Synthroid] 100 mcg PO DAILY 05/13/17 Escitalopram Oxalate [Lexapro] 5 mg PO DAILY 03/26/20 Losartan Potassium 100 mg PO DAILY 03/26/20 Omeprazole 40 mg PO DAILY 03/26/20
--- NOTE | 2020-03-28 16:18 | PROVIDER PROGRESS NOTE ---
Subjective - General Admit Date: 03/26/20 Procedure Date: 03/27/20 Post Op Days: 1 - Review of Systems Wound/Incisions: positive: Dressing dry and intact (Small Blotting seen on distal dressing) General: positive: No symptoms Musculoskeletal: positive: No symptoms Objective - Patient Data Vital Signs: Vital Signs x48h Temp Pulse Resp BP Pulse Ox 03/28/20 13:00 36.7 C 66 16 110/60 95 Weight: Weight 03/26/20 03/27/20 03/28/20 23:59 23:59 23:59 Weight (kg) 74 kg 74 kg Intake & Output: Intake and Output Totals x24h 03/26/20 03/27/20 03/28/20 23:59 23:59 23:59 Intake Total 3025 2565 2080 Output Total 975 1460 1800 Balance 2050 1105 280 - Lab Results Lab Results: 03/28/20 12:06 03/28/20 04:40 Other Lab Results: Lab Results x24hrs 03/28/20 03/28/20 03/28/20 Range/Units 12:06 04:40 04:40 WBC (4.8-10.8) x10^3/uL RBC (4.20-5.40) 10^6/uL Hgb 8.1 L (12.0-16.0) g/dL Hct 26.4 L (37.0-47.0) % MCV (81.0-99.0) fL MCH (27.0-31.0) pg MCHC (32.0-36.0) g/dL RDW (12.0-15.0) % Plt Count (130-450) 10^3/uL MPV (7.9-10.8) fL Neut # (Auto) (1.5-6.6) 10^3/uL Lymph # (Auto) (1.5-3.5) 10^3/uL [place] # (Auto) (0.0-1.0) 10^3/uL Eos # (Auto) (0.0-0.7) 10^3/uL Baso # (Auto) (0.0-0.1) 10^3/uL Absolute Nucleated RBC x10^3/uL Nucleated RBC % /100WBC Sodium 138 (135-145) mmol/L Potassium 4.1 (3.5-5.0) mmol/L Chloride 108 (101-111) mmol/L Carbon Dioxide 23 (21-32) mmol/L Anion Gap 7.0 (6-13) BUN 13 (6-20) mg/dL Creatinine 0.8 (0.4-1.0) mg/dL Estimated GFR (MDRD) 69 L (>89) Glucose 116 H (70-100) mg/dL Calcium 7.9 L (8.5-10.3) mg/dL Phosphorus 3.0 (2.5-4.6) mg/dL Magnesium 2.0 (1.7-2.8) mg/dL TSH 0.26 L (0.34-5.60) uIU/mL 03/28/20 03/27/20 Range/Units 04:40 20:11 WBC 7.2 (4.8-10.8) x10^3/uL RBC 2.45 L (4.20-5.40) 10^6/uL Hgb 7.4 L 8.4 L (12.0-16.0) g/dL Hct 23.6 L 26.5 L (37.0-47.0) % MCV 96.3 (81.0-99.0) fL MCH 30.2 (27.0-31.0) pg MCHC 31.4 L (32.0-36.0) g/dL RDW 13.3 (12.0-15.0) % Plt Count 119 L (130-450) 10^3/uL MPV 10.0 (7.9-10.8) fL Neut # (Auto) 5.5 (1.5-6.6) 10^3/uL Lymph # (Auto) 0.9 L (1.5-3.5) 10^3/uL [place] # (Auto) 0.8 (0.0-1.0) 10^3/uL Eos # (Auto) 0.0 (0.0-0.7) 10^3/uL Baso # (Auto) 0.0 (0.0-0.1) 10^3/uL Absolute Nucleated RBC 0.00 x10^3/uL Nucleated RBC % 0.0 /100WBC Sodium (135-145) mmol/L Potassium (3.5-5.0) mmol/L Chloride (101-111) mmol/L Carbon Dioxide (21-32) mmol/L Anion Gap (6-13) BUN (6-20) mg/dL Creatinine (0.4-1.0) mg/dL Estimated GFR (MDRD) (>89) Glucose (70-100) mg/dL Calcium (8.5-10.3) mg/dL Phosphorus (2.5-4.6) mg/dL Magnesium (1.7-2.8) mg/dL TSH (0.34-5.60) uIU/mL - Current Medications Current Medications: Current Medications Generic Name Dose Route Start Last Admin Trade Name Freq PRN Reason Stop Dose Admin Acetaminophen 650 - 975 mg 03/27/20 11:05 03/28/20 05:36 Tylenol PO 650 mg Q4HR PRN Administration PAIN Aspirin 325 mg 03/27/20 21:00 03/28/20 09:09 El PO 325 mg BID SLICK Administration Escitalopram Oxalate 5 mg 03/27/20 09:00 03/28/20 09:09 Lexapro PO 5 mg DAILY SLICK Administration Levothyroxine Sodium 88 mcg 03/28/20 11:00 03/28/20 10:57 Synthroid PO 88 mcg QDAC SLICK Administration Morphine Sulfate 2 mg 03/27/20 12:50 03/28/20 13:48 Morphine (Carpuject) IVP 2 mg Q2HR PRN Administration PAIN Oxycodone HCl 5 mg 03/26/20 12:35 03/28/20 10:57 Roxicodone PO 5 mg Q4HR PRN Administration Pain 5 to 7 Pantoprazole Sodium 40 mg 03/27/20 09:00 03/28/20 09:09 Protonix PO 40 mg DAILY SLICK Administration Sodium Chloride 10 ml 03/27/20 17:00 03/28/20 10:59 Normal Saline Flush 0.9% IVP 10 ml 0100,0900,1700 SLICK Administration Sodium Chloride 10 ml 03/27/20 11:05 03/28/20 13:48 Normal Saline Flush 0.9% IVP 10 ml PRN PRN Administration NEEDED PER PROVIDER ORDERS - Physical Exam Wound/Incisions: positive: Dressing dry and intact (small blotting distal dressing) General Appearance: positive: No acute distress (Swelling and pain lower left limb) Extremities: positive: Joint swelling. negative: Full ROM Comments/Other: Pain in her right quadriceps muscle. Patient reports no pain in incision site. Disregard early comment about swelling and pain in lower left limb. Impression/Plan - Problem List Problem List: 1)Right hip ORIF -Patient has no constitutional symptoms. Patient dressing is clean and dry with a small amount of blotting in the distal bandage. Patient describes no incisional pain. Patient has pain in her quadriceps muscle when attempting to flex her hip and get out of bed. Patient is getting physical therapy. Patient currently has plans to be discharged to the local rehab facility in [facility]. Patient is progressing well
[2020-03-28] MEDS: CALCIUM CARBONATE CHEW 500 MG TABLET PO SCH (20:55)
[2020-03-28] MEDS ORDERED: LORazepam 2 MG/ML VIAL IVP PRN (22:44)
[2020-03-29] MEDS: SODIUM CHLORIDE FLUSH 0.9% 10 ML SYRINGE IVP SCH ×3 (00:01→16:48)
[2020-03-29] MEDS: oxyCODONE 5 MG TABLET PO PRN ×2 (03:24→11:31)
[2020-03-29 03:31] LABS: BILIRUBIN,URINE NEGATIVE (NEGATIVE); CLARITY,URINE CLEAR (CLEAR); GLUCOSE, URINE (UA) NEGATIVE (NEGATIVE); KETONES,URINE (UA) NEGATIVE (NEGATIVE); LEUKOCYTE ESTERASE, URINE TRACE (NEGATIVE); NITRITE,URINE POSITIVE (NEGATIVE); OCCULT BLOOD,URINE NEGATIVE (NEGATIVE); PROTEIN,URINE NEGATIVE (NEGATIVE); UROBILINOGEN,URINE 0.2 (NORMAL) E.U./dL (NORMAL)
[2020-03-29 03:38] LABS: BACTERIA,URINE Moderate /HPF (None Seen); MUCUS,URINE Few Strands; RBC,URINE None Seen /HPF (0-5); SQUAMOUS EPITHELIAL CELL,UR RARE Squamous (<= Few)
[2020-03-29 05:19] LABS: BASOPHILS % (AUTO) 0.3 %; EOSINOPHILS # (AUTO) 0.2 10^3/uL (0.0-0.7); EOSINOPHILS % (AUTO) 3.1 %; LYMPHOCYTES % (AUTO) 14.8 %; MEAN CORPUSCULAR HEMOGLOBIN 30.7 pg (27.0-31.0); MEAN CORPUSCULAR HGB CONC 31.5 g/dL (32.0-36.0); MEAN CORPUSCULAR VOLUME 97.4 fL (81.0-99.0); MEAN PLATELET VOLUME 10.1 fL (7.9-10.8); MONOCYTES # (AUTO) 0.8 10^3/uL (0.0-1.0); MONOCYTES % (AUTO) 11.8 %; NEUTROPHILS # (AUTO) 4.6 10^3/uL (1.5-6.6); NEUTROPHILS % (AUTO) 69.7 %; PLT - PLATELET COUNT 126 10^3/uL (130-450); RED BLOOD COUNT 2.28 10^6/uL (4.20-5.40); RED CELL DISTRIBUTION WIDTH 13.8 % (12.0-15.0); WHITE BLOOD COUNT 6.6 x10^3/uL (4.8-10.8)
[2020-03-29 05:32] LABS: CALCIUM 7.8 mg/dL (8.5-10.3); CREATININE 0.8 mg/dL (0.4-1.0); PHOSPHORUS 2.2 mg/dL (2.5-4.6)
[2020-03-29] MEDS: LEVOTHYROXINE 88 MCG TABLET PO SCH (06:10)
[2020-03-29] MEDS: MORPHINE 2 MG/ML CARPUJECT IVP PRN (06:10)
[2020-03-29] MEDS ORDERED: POTASSIUM CHLORIDE 20 MEQ TABLET PO ONE (08:19)
[2020-03-29] MEDS ORDERED: METOPROLOL TARTRATE 25 MG TABLET PO SCH (09:00)
--- NOTE | 2020-03-29 09:09 | XRAY Report ---
PROCEDURE: Chest 1 View X-Ray INDICATIONS: fever TECHNIQUE: One view of the chest was acquired. COMPARISON: 03/26/2020 FINDINGS: Surgical changes and devices: None. Lungs and pleura: No pleural effusions or pneumothorax. Lungs are clear. 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 Mediastinum: Mediastinal contours appear normal. Heart size is normal. Bones and chest wall: No suspicious bony lesions. Overlying soft tissues appear unremarkable. IMPRESSION: No acute cardiopulmonary disease process. Reviewed by: Noemi Alex MD, PhD on 03/29/2020 9:08 AM PDT Approved by: Noemi Alex MD, PhD on 03/29/2020 9:08 AM PDT Station ID: [id number]
[2020-03-29] MEDS: CHOLECALCIFEROL 400 UNIT TABLET PO SCH (09:29)
[2020-03-29] MEDS: CALCIUM CARBONATE CHEW 500 MG TABLET PO SCH ×2 (09:30→20:52)
[2020-03-29] MEDS: SODIUM CHLORIDE 0.9% 1,000 ML IV SCH ×2 (09:39→15:50)
[2020-03-29] MEDS: cefTRIAXone 1 GM in SODIUM CHLORIDE 0.9% MINIBAG 100 ML IV SCH (09:39)
[2020-03-29] MEDS: ESCITALOPRAM 10 MG TABLET PO SCH (11:31)
[2020-03-29] MEDS: ASPIRIN 325 MG TABLET PO SCH ×2 (11:31→20:54)
[2020-03-29] MEDS: PANTOPRAZOLE 40 MG TABLET PO SCH (11:32)
--- NOTE | 2020-03-29 13:36 | PROVIDER PROGRESS NOTE ---
Subjective - Prog Note Date Prog Note Date: 03/29/20 - Subjective Pt reports feeling: Worse Subjective: Patient is comfortable in the bed, She denies chest pain. Patient was reported to have fever at the high 38.9 degree. She reported she did not feel fever. She denies dizziness, lightheaded or Palpitation. Current Medications - Current Medications Current Medications: Active Medications Acetaminophen (Tylenol) 650 - 975 mg PO Q4HR PRN PRN Reason: PAIN Last Admin: 03/28/20 21:26 Dose: 650 mg Documented by: Aspirin (El) 325 mg PO BID [facility] Last Admin: 03/29/20 11:31 Dose: 325 mg Documented by: Calcium Carbonate/Glycine (Tums) 500 mg PO BID [facility] Last Admin: 03/29/20 09:30 Dose: 500 mg Documented by: Cholecalciferol (Vitamin D3) 800 unit PO DAILY [facility] Last Admin: 03/29/20 09:29 Dose: 800 unit Documented by: Escitalopram Oxalate (Lexapro) 5 mg PO DAILY [facility] Last Admin: 03/29/20 11:31 Dose: 5 mg Documented by: Ceftriaxone Sodium 1 gm/ (Sodium Chloride) 100 mls @ 200 mls/hr IV DAILY [facility] Last Infusion: 03/29/20 10:09 Dose: Infused Documented by: Sodium Chloride (Normal Saline 0.9%) 1,000 mls @ 100 mls/hr IV .Q10H [facility] Last Admin: 03/29/20 09:39 Dose: 100 mls/hr Documented by: Sodium Chloride (Normal Saline 0.9%) 500 mls @ 999 mls/hr IV ONCE ONE Stop: 03/29/20 14:23 Levothyroxine Sodium (Synthroid) 88 mcg PO QDAC [facility] Last Admin: 03/29/20 06:10 Dose: 88 mcg Documented by: Metoprolol Tartrate (Lopressor) 25 mg PO BID [facility] Last Admin: 03/29/20 09:28 Dose: 25 mg Documented by: Morphine Sulfate (Morphine (Carpuject)) 2 mg IVP Q2HR PRN PRN Reason: PAIN Last Admin: 03/29/20 06:10 Dose: 2 mg Documented by: Ondansetron HCl (Zofran Odt) 4 mg TL Q6HR PRN PRN Reason: Nausea / Vomiting Ondansetron HCl (Zofran Inj) 4 mg IVP Q6HR PRN PRN Reason: Nausea / Vomiting Oxycodone HCl (Roxicodone) 5 mg PO Q4HR PRN PRN Reason: Pain 5 to 7 Last Admin: 03/29/20 11:31 Dose: 5 mg Documented by: Pantoprazole Sodium (Protonix) 40 mg PO DAILY [facility] Last Admin: 03/29/20 11:32 Dose: 40 mg Documented by: Sodium Chloride (Normal Saline Flush 0.9%) 10 ml IVP 0100,0900,1700 [facility] Last Admin: 03/29/20 09:33 Dose: 10 ml Documented by: Sodium Chloride (Normal Saline Flush 0.9%) 10 ml IVP PRN PRN PRN Reason: NEEDED PER PROVIDER ORDERS Last Admin: 03/28/20 18:48 Dose: 10 ml Documented by: Levothyroxine [Synthroid] 100 mcg PO DAILY 05/13/17 Escitalopram Oxalate [Lexapro] 5 mg PO DAILY 03/26/20 Losartan Potassium 100 mg PO DAILY 03/26/20 Omeprazole 40 mg PO DAILY 03/26/20 Objective - Vital Signs/Intake & Output Vital Signs: Vital Signs x48h Temp Pulse Pulse Resp BP BP BP 03/29/20 13:00 37.5 C 94 20 93/66 03/29/20 11:40 37.1 C 96 18 110/58 L 03/29/20 11:19 37.1 C 80 16 104/56 L 03/29/20 08:00 36.8 C 81 20 134/67 H Pulse Ox 03/29/20 13:00 92 03/29/20 11:40 03/29/20 11:19 03/29/20 08:00 92 Intake & Output: Intake & Output 03/26/20 03/27/20 03/28/20 03/29/20 23:59 23:59 23:59 23:59 Intake Total 3025 2565 2380 580 Output Total 975 1460 2150 600 Balance 2050 1105 230 -20 - Objective General Appearance: positive: No acute distress, Alert. negative: Lethargic Eyes Bilateral: positive: Normal inspection, PERRL, No lid inflammation ENT: positive: ENT inspection nml, No signs of dehydration. negative: Purulent nasal drainage Neck: positive: Nml inspection, Thyroid nml. negative: Thyromegaly, Tracheal deviation Respiratory: positive: Chest non-tender, No respiratory distress, Breath sounds nml. negative: Wheezes, Rales, Rhonchi Cardiovascular: positive: Irregularly irregular, Systolic murmur. negative: Tachycardia, Bradycardia Peripheral Pulses: 2+ Radial (R), 2+ Radial (L) Abdomen: positive: Non-tender, Nml bowel sounds, No distention. negative: Tenderness, Guarding, Rebound Back: positive: Nml inspection Skin: positive: Color nml, No rash, Warm, Dry. negative: Cyanosis, Diaphoresis, Pallor Extremities: positive: Non-tender, Nml appearance. negative: Calf tenderness Neurologic/Psychiatric: positive: Oriented x3, Sensation nml, Mood/affect nml. negative: Weakness, Sensory loss, Facial droop, Slurred/abnml speech, Depressed mood/affect - Lab Results Fish Bones: 03/29/20 05:10 03/29/20 05:10 Other Labs: Lab Results x24hrs 03/29/20 03/29/20 03/29/20 Range/Units 08:39 05:10 05:10 WBC 6.6 (4.8-10.8) x10^3/uL RBC 2.28 L (4.20-5.40) 10^6/uL Hgb 7.0 L* (12.0-16.0) g/dL Hct 22.2 L (37.0-47.0) % MCV 97.4 (81.0-99.0) fL MCH 30.7 (27.0-31.0) pg MCHC 31.5 L (32.0-36.0) g/dL RDW 13.8 (12.0-15.0) % Plt Count 126 L (130-450) 10^3/uL MPV 10.1 (7.9-10.8) fL Neut # (Auto) 4.6 (1.5-6.6) 10^3/uL Lymph # (Auto) 1.0 L (1.5-3.5) 10^3/uL [place] # (Auto) 0.8 (0.0-1.0) 10^3/uL Eos # (Auto) 0.2 (0.0-0.7) 10^3/uL Baso # (Auto) 0.0 (0.0-0.1) 10^3/uL Absolute Nucleated RBC 0.00 x10^3/uL Nucleated RBC % 0.0 /100WBC Sodium 138 (135-145) mmol/L Potassium 3.9 (3.5-5.0) mmol/L Chloride 110 (101-111) mmol/L Carbon Dioxide 25 (21-32) mmol/L Anion Gap 3.0 L (6-13) BUN 16 (6-20) mg/dL Creatinine 0.8 (0.4-1.0) mg/dL Estimated GFR (MDRD) 69 L (>89) Glucose 108 H (70-100) mg/dL Calcium 7.8 L (8.5-10.3) mg/dL Phosphorus 2.2 L (2.5-4.6) mg/dL Magnesium 2.0 (1.7-2.8) mg/dL Troponin I High Sens 12.5 (2.3-14.8) ng/L Urine Color Urine Clarity (CLEAR) Urine pH (5.0-7.5) PH Ur Specific [place] (1.002-1.030) Urine Protein (NEGATIVE) mg/dL Urine Glucose (UA) (NEGATIVE) mg/dL Urine Ketones (NEGATIVE) mg/dL Urine Occult Blood (NEGATIVE) Urine Nitrite (NEGATIVE) Urine Bilirubin (NEGATIVE) Urine Urobilinogen (NORMAL) E.U./dL Ur Leukocyte Esterase (NEGATIVE) Urine RBC (0-5) /HPF Urine WBC (0-5) /HPF Ur Squamous Epith Cells (<= Few) Urine Bacteria (None Seen) /HPF Urine Mucus Urine Culture Comments Blood Type Antibody Screen Crossmatch IS Only 03/29/20 03/26/20 Range/Units 03:15 23:58 WBC (4.8-10.8) x10^3/uL RBC (4.20-5.40) 10^6/uL Hgb (12.0-16.0) g/dL Hct (37.0-47.0) % MCV (81.0-99.0) fL MCH (27.0-31.0) pg MCHC (32.0-36.0) g/dL RDW (12.0-15.0) % Plt Count (130-450) 10^3/uL MPV (7.9-10.8) fL Neut # (Auto) (1.5-6.6) 10^3/uL Lymph # (Auto) (1.5-3.5) 10^3/uL [place] # (Auto) (0.0-1.0) 10^3/uL Eos # (Auto) (0.0-0.7) 10^3/uL Baso # (Auto) (0.0-0.1) 10^3/uL Absolute Nucleated RBC x10^3/uL Nucleated RBC % /100WBC Sodium (135-145) mmol/L Potassium (3.5-5.0) mmol/L Chloride (101-111) mmol/L Carbon Dioxide (21-32) mmol/L Anion Gap (6-13) BUN (6-20) mg/dL Creatinine (0.4-1.0) mg/dL Estimated GFR (MDRD) (>89) Glucose (70-100) mg/dL Calcium (8.5-10.3) mg/dL Phosphorus (2.5-4.6) mg/dL Magnesium (1.7-2.8) mg/dL Troponin I High Sens (2.3-14.8) ng/L Urine Color YELLOW Urine Clarity CLEAR (CLEAR) Urine pH 6.0 (5.0-7.5) PH Ur Specific [place] 1.020 (1.002-1.030) Urine Protein NEGATIVE (NEGATIVE) mg/dL Urine Glucose (UA) NEGATIVE (NEGATIVE) mg/dL Urine Ketones NEGATIVE (NEGATIVE) mg/dL Urine Occult Blood NEGATIVE (NEGATIVE) Urine Nitrite POSITIVE H (NEGATIVE) Urine Bilirubin NEGATIVE (NEGATIVE) Urine Urobilinogen 0.2 (NORMAL) (NORMAL) E.U./dL Ur Leukocyte Esterase TRACE H (NEGATIVE) Urine RBC None Seen (0-5) /HPF Urine WBC 4-5 (0-5) /HPF Ur Squamous Epith Cells RARE Squamous (<= Few) Urine Bacteria Moderate H (None Seen) /HPF Urine Mucus Few Strands Urine Culture Comments INDICATED Blood Type O POSITIVE Antibody Screen NEGATIVE Crossmatch IS Only See Detail ABX Reporting Has patient been on IV antibiotics over the past 48 hours?: Yes Assessment/Plan - Problem List (1) Atrial fibrillation with rapid ventricular response Impression: Patient Develop atrial fibrillation with by RVR, Pulse at around 110. Patient denies palpitation, chest pain. Patient is asymptomatic for a fibrillation. Tr oponin is negative, We added metoprolol for patient To control pulse. Continue telemetry, continue vital signs monitor. It is a likely combination stress of patient has dropped hemoglobin, and she developed a fever in the last night to the heart. (2)fever Patient Developed fever 38.9 degrees on last night. Urinalysis is positive for urinary tract infection. Chest x-ray is unremarkable. Patient treated antibiotics now, With intravenous IV fluids. Blood culture is pending (3)UTI Patient's Urinalysis indicated patient has a urinary tract infection. Patient treated with antibiotics Rocephin.Continue intravenous IV fluids (4) Closed right hip fracture 108,Will continue with physical therapist occupational therapist, continue pain control, Continue Aspirin as DVT prophylaxis 107, Patient Is day 1 status post of right hip repair. Patient doing well, patient will have physical therapist, occupational therapy evaluation and treatment. Patient had surgery on today. Physical therapist already evaluated and treated patient. Patient is doing well. She has no complaints now. We will continue PT, OT. Continue pain control, continue aspirin twice daily for DVT prophylaxis. (5)postoperative anemia 108, Patient had 7.0 hemoglobin, patient was ordered 1 unit blood transfusion. We will continue H&H to monitor patient Patient has anemia 7.4, this is day 1 patient with status post right hip repair.We will H&H to monitor patient hemoglobin, Might transfusion blood if needed (6) Preop examination Conclusion/Plan: No complication as far status post of right hip repair. (7) Aortic regurgitation Conclusion/Plan: Her ejection fraction was preserved at 60%. This can be followed up on outpatient basis. She has no complication status post surgery as far. Patient is doing well, physical therapist already evaluation and treated patient. Continue telemetry and vital signs monitor patient (8) Hypertension Conclusion/Plan: Stable. (9) Hypothyroidism Conclusion/Plan: 10-7, patient TSH is low, will reduce to Synthroid 88 mcg daily, Follow-up PCP for further management will check TSH, We will continue her home dose of Synthroid. (10) Hemochromatosis Conclusion/Plan: Stable. Status post of operation, we will do one-time H&H to monitor HGB.
[2020-03-29] MEDS ORDERED: SODIUM CHLORIDE 0.9% 500 ML IV ONE (13:53)
[2020-03-29] MEDS: ACETAMINOPHEN 325 MG TABLET PO PRN ×2 (15:47→20:53)
[2020-03-29] MEDS: FERROUS SULFATE 325 MG TABLET PO SCH (16:51)
--- NOTE | 2020-03-29 17:08 | PROVIDER PROGRESS NOTE ---
Subjective - General Admit Date: 03/26/20 Procedure Date: 03/27/20 Post Op Days: 2 Procedure Performed: Open reduction internal fixation right hip - Review of Systems Wound/Incisions: positive: Dressing dry and intact (small blotting distal dressing) General: positive: No symptoms Musculoskeletal: positive: No symptoms Neurological: Psychiatric: positive: No symptoms - Other Other Information/Narrative: Her pain is mostly in the distal thigh when flexing her right knee. The right hip does not seem to have pain. She does have some fever and symptoms of urinary tract infection earlier today but these are improved. She did relatively well with her therapy and gait training. Objective - Patient Data Vital Signs: Vital Signs x48h Temp Pulse Pulse Resp BP BP BP 03/29/20 15:50 37.1 C 95 18 102/53 L 03/29/20 14:31 37 C 94 18 95/59 L 03/29/20 13:00 37.5 C 94 20 93/66 03/29/20 11:40 37.1 C 96 18 110/58 L 03/29/20 11:19 37.1 C 80 16 104/56 L Pulse Ox 03/29/20 15:50 94 03/29/20 14:31 03/29/20 13:00 92 03/29/20 11:40 03/29/20 11:19 Weight: Weight 03/27/20 03/28/20 03/29/20 23:59 23:59 23:59 Weight (kg) 74 kg Intake & Output: Intake and Output Totals x24h 03/27/20 03/28/20 03/29/20 23:59 23:59 23:59 Intake Total 2565 2380 2048.333 Output Total 1460 2150 600 Balance 5799 349 3389.333 - Lab Results Lab Results: 03/29/20 14:55 03/29/20 05:10 Other Lab Results: Lab Results x24hrs 03/29/20 03/29/20 03/29/20 Range/Units 14:55 14:20 08:39 WBC (4.8-10.8) x10^3/uL RBC (4.20-5.40) 10^6/uL Hgb 8.0 L (12.0-16.0) g/dL Hct 24.4 L (37.0-47.0) % MCV (81.0-99.0) fL MCH (27.0-31.0) pg MCHC (32.0-36.0) g/dL RDW (12.0-15.0) % Plt Count (130-450) 10^3/uL MPV (7.9-10.8) fL Neut # (Auto) (1.5-6.6) 10^3/uL Lymph # (Auto) (1.5-3.5) 10^3/uL [place] # (Auto) (0.0-1.0) 10^3/uL Eos # (Auto) (0.0-0.7) 10^3/uL Baso # (Auto) (0.0-0.1) 10^3/uL Absolute Nucleated RBC x10^3/uL Nucleated RBC % /100WBC Sodium (135-145) mmol/L Potassium (3.5-5.0) mmol/L Chloride (101-111) mmol/L Carbon Dioxide (21-32) mmol/L Anion Gap (6-13) BUN (6-20) mg/dL Creatinine (0.4-1.0) mg/dL Estimated GFR (MDRD) (>89) Glucose (70-100) mg/dL Calcium (8.5-10.3) mg/dL Phosphorus (2.5-4.6) mg/dL Magnesium (1.7-2.8) mg/dL Troponin I High Sens 31.8 H* 12.5 (2.3-14.8) ng/L Urine Color Urine Clarity (CLEAR) Urine pH (5.0-7.5) PH Ur Specific [place] (1.002-1.030) Urine Protein (NEGATIVE) mg/dL Urine Glucose (UA) (NEGATIVE) mg/dL Urine Ketones (NEGATIVE) mg/dL Urine Occult Blood (NEGATIVE) Urine Nitrite (NEGATIVE) Urine Bilirubin (NEGATIVE) Urine Urobilinogen (NORMAL) E.U./dL Ur Leukocyte Esterase (NEGATIVE) Urine RBC (0-5) /HPF Urine WBC (0-5) /HPF Ur Squamous Epith Cells (<= Few) Urine Bacteria (None Seen) /HPF Urine Mucus Urine Culture Comments Blood Type Antibody Screen Crossmatch IS Only 03/29/20 03/29/20 03/29/20 Range/Units 05:10 05:10 03:15 WBC 6.6 (4.8-10.8) x10^3/uL RBC 2.28 L (4.20-5.40) 10^6/uL Hgb 7.0 L* (12.0-16.0) g/dL Hct 22.2 L (37.0-47.0) % MCV 97.4 (81.0-99.0) fL MCH 30.7 (27.0-31.0) pg MCHC 31.5 L (32.0-36.0) g/dL RDW 13.8 (12.0-15.0) % Plt Count 126 L (130-450) 10^3/uL MPV 10.1 (7.9-10.8) fL Neut # (Auto) 4.6 (1.5-6.6) 10^3/uL Lymph # (Auto) 1.0 L (1.5-3.5) 10^3/uL [place] # (Auto) 0.8 (0.0-1.0) 10^3/uL Eos # (Auto) 0.2 (0.0-0.7) 10^3/uL Baso # (Auto) 0.0 (0.0-0.1) 10^3/uL Absolute Nucleated RBC 0.00 x10^3/uL Nucleated RBC % 0.0 /100WBC Sodium 138 (135-145) mmol/L Potassium 3.9 (3.5-5.0) mmol/L Chloride 110 (101-111) mmol/L Carbon Dioxide 25 (21-32) mmol/L Anion Gap 3.0 L (6-13) BUN 16 (6-20) mg/dL Creatinine 0.8 (0.4-1.0) mg/dL Estimated GFR (MDRD) 69 L (>89) Glucose 108 H (70-100) mg/dL Calcium 7.8 L (8.5-10.3) mg/dL Phosphorus 2.2 L (2.5-4.6) mg/dL Magnesium 2.0 (1.7-2.8) mg/dL Troponin I High Sens (2.3-14.8) ng/L Urine Color YELLOW Urine Clarity CLEAR (CLEAR) Urine pH 6.0 (5.0-7.5) PH Ur Specific [place] 1.020 (1.002-1.030) Urine Protein NEGATIVE (NEGATIVE) mg/dL Urine Glucose (UA) NEGATIVE (NEGATIVE) mg/dL Urine Ketones NEGATIVE (NEGATIVE) mg/dL Urine Occult Blood NEGATIVE (NEGATIVE) Urine Nitrite POSITIVE H (NEGATIVE) Urine Bilirubin NEGATIVE (NEGATIVE) Urine Urobilinogen 0.2 (NORMAL) (NORMAL) E.U./dL Ur Leukocyte Esterase TRACE H (NEGATIVE) Urine RBC None Seen (0-5) /HPF Urine WBC 4-5 (0-5) /HPF Ur Squamous Epith Cells RARE Squamous (<= Few) Urine Bacteria Moderate H (None Seen) /HPF Urine Mucus Few Strands Urine Culture Comments INDICATED Blood Type Antibody Screen Crossmatch IS Only 03/26/20 Range/Units 23:58 WBC (4.8-10.8) x10^3/uL RBC (4.20-5.40) 10^6/uL Hgb (12.0-16.0) g/dL Hct (37.0-47.0) % MCV (81.0-99.0) fL MCH (27.0-31.0) pg MCHC (32.0-36.0) g/dL RDW (12.0-15.0) % Plt Count (130-450) 10^3/uL MPV (7.9-10.8) fL Neut # (Auto) (1.5-6.6) 10^3/uL Lymph # (Auto) (1.5-3.5) 10^3/uL [place] # (Auto) (0.0-1.0) 10^3/uL Eos # (Auto) (0.0-0.7) 10^3/uL Baso # (Auto) (0.0-0.1) 10^3/uL Absolute Nucleated RBC x10^3/uL Nucleated RBC % /100WBC Sodium (135-145) mmol/L Potassium (3.5-5.0) mmol/L Chloride (101-111) mmol/L Carbon Dioxide (21-32) mmol/L Anion Gap (6-13) BUN (6-20) mg/dL Creatinine (0.4-1.0) mg/dL Estimated GFR (MDRD) (>89) Glucose (70-100) mg/dL Calcium (8.5-10.3) mg/dL Phosphorus (2.5-4.6) mg/dL Magnesium (1.7-2.8) mg/dL Troponin I High Sens (2.3-14.8) ng/L Urine Color Urine Clarity (CLEAR) Urine pH (5.0-7.5) PH Ur Specific [place] (1.002-1.030) Urine Protein (NEGATIVE) mg/dL Urine Glucose (UA) (NEGATIVE) mg/dL Urine Ketones (NEGATIVE) mg/dL Urine Occult Blood (NEGATIVE) Urine Nitrite (NEGATIVE) Urine Bilirubin (NEGATIVE) Urine Urobilinogen (NORMAL) E.U./dL Ur Leukocyte Esterase (NEGATIVE) Urine RBC (0-5) /HPF Urine WBC (0-5) /HPF Ur Squamous Epith Cells (<= Few) Urine Bacteria (None Seen) /HPF Urine Mucus Urine Culture Comments Blood Type O POSITIVE Antibody Screen NEGATIVE Crossmatch IS Only See Detail - Current Medications Current Medications: Current Medications Generic Name Dose Route Start Last Admin Trade Name Freq PRN Reason Stop Dose Admin Acetaminophen 650 - 975 mg 03/27/20 11:05 03/29/20 15:47 Tylenol PO 650 mg Q4HR PRN Administration PAIN Aspirin 325 mg 03/27/20 21:00 03/29/20 11:31 El PO 325 mg BID SLICK Administration Calcium Carbonate/Glycine 500 mg 03/28/20 21:00 03/29/20 09:30 Tums PO 500 mg BID SLICK Administration Cholecalciferol 800 unit 03/29/20 09:00 03/29/20 09:29 Vitamin D3 PO 800 unit DAILY SLICK Administration Escitalopram Oxalate 5 mg 03/27/20 09:00 03/29/20 11:31 Lexapro PO 5 mg DAILY SLICK Administration Ferrous Sulfate 325 mg 03/29/20 16:00 03/29/20 16:51 Feosol PO 325 mg DAILYWM SLICK Administration Ceftriaxone Sodium 1 gm/ 100 mls @ 200 mls/hr 03/29/20 08:00 03/29/20 10:09 Sodium Chloride IV Infused DAILY SLICK Infusion Sodium Chloride 1,000 mls @ 100 mls/hr 03/29/20 09:00 03/29/20 15:50 Normal Saline 0.9% IV 100 mls/hr .Q10H SLICK Administration Levothyroxine Sodium 88 mcg 03/28/20 11:00 03/29/20 06:10 Synthroid PO 88 mcg QDAC SLICK Administration Morphine Sulfate 2 mg 03/27/20 12:50 03/29/20 06:10 Morphine (Carpuject) IVP 2 mg Q2HR PRN Administration PAIN Pantoprazole Sodium 40 mg 03/27/20 09:00 03/29/20 11:32 Protonix PO 40 mg DAILY SLICK Administration Sodium Chloride 10 ml 03/27/20 17:00 03/29/20 16:48 Normal Saline Flush 0.9% IVP Not Given 0100,0900,1700 SLICK Sodium Chloride 10 ml 03/27/20 11:05 03/28/20 18:48 Normal Saline Flush 0.9% IVP 10 ml PRN PRN Administration NEEDED PER PROVIDER ORDERS Impression/Plan - Problem List Problem List: Intertrochanteric fracture right hip, status post open reduction internal fixation She has a postoperative anemia, given 1 unit of blood. There is no sign of bleeding at the hip incision sites and no sign of thigh compartment syndrome. Continue physical and Occupational Therapy and comanage care with medicine
[2020-03-29] MEDS: METOPROLOL TARTRATE 25 MG TABLET PO SCH (20:52)
[2020-03-29] MEDS: ATORVASTATIN 40 MG TABLET PO SCH (20:52)
[2020-03-29] MEDS ORDERED: polyethylene glycoL 3350 17 GM PACKET PO PRN (21:41)
[2020-03-30] MEDS: SODIUM CHLORIDE FLUSH 0.9% 10 ML SYRINGE IVP SCH ×4 (00:31→23:32)
[2020-03-30] MEDS: SODIUM CHLORIDE 0.9% 1,000 ML IV SCH ×2 (00:31→11:22)
[2020-03-30] MEDS: ACETAMINOPHEN 325 MG TABLET PO PRN ×5 (01:33→13:51)
[2020-03-30] MEDS: LEVOTHYROXINE 88 MCG TABLET PO SCH ×2 (05:49→05:57)
[2020-03-30 05:56] LABS: BASOPHILS % (AUTO) 0.4 %; EOSINOPHILS # (AUTO) 0.2 10^3/uL (0.0-0.7); EOSINOPHILS % (AUTO) 4.5 %; HGB - HEMOGLOBIN 7.5 g/dL (12.0-16.0); LYMPHOCYTES % (AUTO) 18.1 %; MEAN CORPUSCULAR HGB CONC 32.3 g/dL (32.0-36.0); MEAN CORPUSCULAR VOLUME 95.9 fL (81.0-99.0); MEAN PLATELET VOLUME 10.6 fL (7.9-10.8); MONOCYTES # (AUTO) 0.6 10^3/uL (0.0-1.0); NEUTROPHILS # (AUTO) 3.5 10^3/uL (1.5-6.6); NEUTROPHILS % (AUTO) 65.6 %; PLT - PLATELET COUNT 130 10^3/uL (130-450); RED BLOOD COUNT 2.42 10^6/uL (4.20-5.40); RED CELL DISTRIBUTION WIDTH 14.5 % (12.0-15.0); WHITE BLOOD COUNT 5.3 x10^3/uL (4.8-10.8)
[2020-03-30 06:12] LABS: CALCIUM 7.8 mg/dL (8.5-10.3); CREATININE 0.7 mg/dL (0.4-1.0); PHOSPHORUS 2.6 mg/dL (2.5-4.6)
[2020-03-30 06:16] LABS: CHOL/HDL RATIO 2.7 (<4.4); CHOLESTEROL 115 mg/dL; HDL CHOLESTEROL 43 mg/dL; LDL CHOLESTEROL,CALCULATED 61 mg/dL; LDL/HDL RATIO 1.4 (<4.4); VLDL CHOLESTEROL 11 mg/dL
[2020-03-30] MEDS: METOPROLOL TARTRATE 25 MG TABLET PO SCH (09:45)
[2020-03-30] MEDS: CHOLECALCIFEROL 400 UNIT TABLET PO SCH (09:45)
[2020-03-30] MEDS: ESCITALOPRAM 10 MG TABLET PO SCH (09:45)
[2020-03-30] MEDS: CALCIUM CARBONATE CHEW 500 MG TABLET PO SCH ×2 (09:45→20:14)
[2020-03-30] MEDS: PANTOPRAZOLE 40 MG TABLET PO SCH (09:46)
[2020-03-30] MEDS: FERROUS SULFATE 325 MG TABLET PO SCH (09:47)
[2020-03-30] MEDS: ASPIRIN 325 MG TABLET PO SCH ×2 (09:47→20:14)
[2020-03-30] MEDS: cefTRIAXone 1 GM in SODIUM CHLORIDE 0.9% MINIBAG 100 ML IV SCH (09:48)
[2020-03-30] MEDS ORDERED: PHENAZOPYRIDINE 100 MG TABLET PO PRN (10:56)
[2020-03-30] MEDS: oxyCODONE 5 MG TABLET PO PRN ×3 (12:06→20:14)
[2020-03-30] MEDS: LOSARTAN 50 MG TABLET PO SCH (12:11)
--- NOTE | 2020-03-30 14:28 | PROVIDER PROGRESS NOTE ---
Assessment/Plan - Problem List (1) Atrial fibrillation with rapid ventricular response Assessment/Plan: 03/30,New EKG patient's show pt's a fibrillation is resolved. Metoprolol dosage is reduced for patient bradycardia, HR is 61 now. 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 Patient Develop atrial fibrillation with by RVR, Pulse at around 110. Patient denies palpitation, chest pain. Patient is asymptomatic for a fibrillation. Troponin is negative, We added metoprolol for patient To control pulse. Continue telemetry, continue vital signs monitor. It is a likely combination stress of patient has dropped hemoglobin, and she developed a fever in the last night to the heart. (2)fever 109,Patient has no more fever, WBC is normal, blood Culture is negative. We will continue Rocephin antibiotics And probiotics. Patient Developed fever 38.9 degrees on last night. Urinalysis is positive for urinary tract infection. Chest x-ray is unremarkable. Patient treated antibiotics now, With intravenous IV fluids. Blood culture is pending (3)UTI 109, urinalysis show positive for gram-negative rods. Sensitivity study is pending. Continue Rocephin Patient's Urinalysis indicated patient has a urinary tract infection. Patient treated with antibiotics Rocephin.Continue intravenous IV fluids (4) Closed right hip fracture 109,Continue physical therapist and occupational therapist evaluation and treatment,Continue pain control. 108,Will continue with physical therapist occupational therapist, continue pain control, Continue Aspirin as DVT prophylaxis 107, Patient Is day 1 status post of right hip repair. Patient doing well, patient will have physical therapist, occupational therapy evaluation and treatment. Patient had surgery on today. Physical therapist already evaluated and treated patient. Patient is doing well. She has no complaints now. We will continue PT, OT. Continue pain control, continue aspirin twice daily for DVT prophylaxis. (5)postoperative anemia 109, patient hemoglobin is still trending down to 7.5, Blood stool test is negative. We will continue hemoglobin monitor, have anemia study 108, Patient had 7.0 hemoglobin, patient was ordered 1 unit blood transfusion. We will continue H&H to monitor patient Patient has anemia 7.4, this is day 1 patient with status post right hip repair.We will H&H to monitor patient hemoglobin, Might transfusion blood if needed (6) Preop examination Conclusion/Plan: No complication as far status post of right hip repair. (7) Aortic regurgitation Conclusion/Plan: Her ejection fraction was preserved at 60%. This can be followed up on outpatient basis. She has no complication status post surgery as far. Patient is doing well, physical therapist already evaluation and treated patient. Continue telemetry and vital signs monitor patient (8) Hypertension Conclusion/Plan: 109, resume home blood pressure medicine Losartan and Metoprolol 12.5 mg bid, Continue vital signs monitor Stable. (9) Hypothyroidism Conclusion/Plan: 10, patient TSH is low, will reduce to Synthroid 88 mcg daily, Follow-up PCP for further management will check TSH, We will continue her home dose of Synthroid. (10) Hemochromatosis Conclusion/Plan: Stable. Status post of operation, we will do one-time H&H to monitor HGB. - Current Meds Current Meds: Current Medications Generic Name Dose Route Start Last Admin Trade Name Freq PRN Reason Stop Dose Admin Acetaminophen 650 - 975 mg 03/27/20 11:05 03/30/20 13:51 Tylenol PO 650 mg Q4HR PRN Administration PAIN Aspirin 325 mg 03/27/20 21:00 03/30/20 09:47 El PO 325 mg BID [facility]ICK Administration Atorvastatin Calcium 20 mg 03/29/20 21:00 03/29/20 20:52 Lipitor PO 20 mg QPM [facility]ICK Administration Calcium Carbonate/Glycine 500 mg 03/28/20 21:00 03/30/20 09:45 Tums PO 500 mg BID SLICK Administration Cholecalciferol 800 unit 03/29/20 09:00 03/30/20 09:45 Vitamin D3 PO 800 unit DAILY [facility] Administration Escitalopram Oxalate 5 mg 03/27/20 09:00 03/30/20 09:45 Lexapro PO 5 mg DAILY [facility] Administration Ferrous Sulfate 325 mg 03/29/20 16:00 03/30/20 09:47 Feosol PO 325 mg DAILYWM [facility] Administration Ceftriaxone Sodium 1 gm/ 100 mls @ 200 mls/hr 03/29/20 08:00 03/30/20 10:18 Sodium Chloride IV Infused DAILY [facility] Infusion Sodium Chloride 1,000 mls @ 100 mls/hr 03/29/20 09:00 03/30/20 11:22 Normal Saline 0.9% IV 100 mls/hr .Q10H [facility] Administration Levothyroxine Sodium 88 mcg 03/28/20 11:00 03/30/20 05:57 Synthroid PO 88 mcg QDAC [facility] Administration Losartan Potassium 100 mg 03/30/20 12:00 03/30/20 12:11 Cozaar PO 100 mg DAILY [facility] Administration Morphine Sulfate 2 mg 03/27/20 12:50 03/29/20 06:10 Morphine (Carpuject) IVP 2 mg Q2HR PRN Administration PAIN Oxycodone HCl 5 mg 03/30/20 11:56 03/30/20 12:06 Roxicodone PO 5 mg Q4HR PRN Administration PAIN Pantoprazole Sodium 40 mg 03/27/20 09:00 03/30/20 09:46 Protonix PO 40 mg DAILY [facility] Administration Sodium Chloride 10 ml 03/27/20 17:00 03/30/20 09:48 Normal Saline Flush 0.9% IVP Not Given 0100,0900,1700 [facility] Sodium Chloride 10 ml 03/27/20 11:05 03/28/20 18:48 Normal Saline Flush 0.9% IVP 10 ml PRN PRN Administration NEEDED PER PROVIDER ORDERS - Lab Result Fish Bone Diagrams: 03/30/20 05:35 03/30/20 05:35 - Additional Planning My Orders: My Active Orders 03/29/20 16:00 Ferrous Sulfate [Feosol] 325 mg PO DAILYWM 03/29/20 21:00 Atorvastatin [Lipitor] 20 mg PO QPM 03/30/20 Osteoporosis Consult [CONS] Routine 03/30/20 10:56 Phenazopyridine [Pyridium] 100 mg PO TID PRN 03/30/20 11:56 oxyCODONE [Roxicodone] 5 mg PO Q4HR PRN 03/30/20 12:00 Losartan [Cozaar] 100 mg PO DAILY 03/30/20 14:00 H&H [HEMOGLOBIN AND HEMATOCRIT] [HEME] Timed 03/30/20 15:07 Echo Transthoracic Complete [ECHO] Routine 03/30/20 21:00 Metoprolol Tartrate [Lopressor] 12.5 mg PO BID Subjective - Subjective Patient Reports: Feeling Better Objective Vital Signs: Vital Signs - 24 hr 03/29/20 03/29/20 03/29/20 14:31 15:50 20:51 Temperature 37 C 37.1 C 37.1 C Heart Rate 94 Heart Rate [ 95 62 Brachial] Respiratory 18 18 17 Rate Blood Pressure 95/59 L Blood Pressure 107/57 L [Left Brachial artery] Blood Pressure 102/53 L [Right Brachial artery] O2 Saturation 94 03/29/20 03/29/20 03/30/20 20:52 23:43 04:40 Temperature 36.8 C 36.4 C L Heart Rate Heart Rate [ 56 L 55 L Brachial] Respiratory 20 22 Rate Blood Pressure 107/57 L Blood Pressure [Left Brachial artery] Blood Pressure 121/61 149/72 H [Right Brachial artery] O2 Saturation 95 96 03/30/20 03/30/20 03/30/20 08:47 09:45 12:09 Temperature 36.7 C Heart Rate Heart Rate [ 53 L 56 L Brachial] Respiratory 18 Rate Blood Pressure 144/73 H Blood Pressure 144/73 H [Left Brachial artery] Blood Pressure 147/76 H [Right Brachial artery] O2 Saturation 97 03/30/20 13:00 Temperature 36.6 C Heart Rate Heart Rate [ 61 Brachial] Respiratory 18 Rate Blood Pressure Blood Pressure [Left Brachial artery] Blood Pressure 140/68 H [Right Brachial artery] O2 Saturation 97 Oxygen O2 Source Room air I&O (Last 24 Hrs): Intake and Output Totals x24h 03/28/20 03/29/20 03/30/20 23:59 23:59 23:59 Intake Total 2380 2588.333 2848.333 Output Total 2150 1250 1000 Balance 230 7631.952 5595.333 General: Alert, Oriented x3, No acute distress HEENT: Atraumatic Neck: Supple Lymphatic: no adenopathy Neuro: Alert, Non Focal, Oriented Times 3 Cardiovascular: Regular rate, Normal S1, Normal S2 Respiratory: Chest non-tender, No respiratory distress, Breath sounds nml Abdomen: Normal bowel sounds, Soft, No tenderness Extremities: Normal pulses - Results Results: Laboratory Results WBC 5.3 x10^3/uL (4.8-10.8) 03/30/20 05:35 RBC 2.42 10^6/uL (4.20-5.40) L 03/30/20 05:35 Hgb 7.5 g/dL (12.0-16.0) L 03/30/20 05:35 Hct 23.2 % (37.0-47.0) L 03/30/20 05:35 MCV 95.9 fL (81.0-99.0) 03/30/20 05:35 MCH 31.0 pg (27.0-31.0) 03/30/20 05:35 MCHC 32.3 g/dL (32.0-36.0) 03/30/20 05:35 RDW 14.5 % (12.0-15.0) 03/30/20 05:35 Plt Count 130 10^3/uL (130-450) 03/30/20 05:35 MPV 10.6 fL (7.9-10.8) 03/30/20 05:35 Reticulocyte % (Auto) 1.28 % (0.5-2.3) 03/27/20 08:04 Neut # (Auto) 3.5 10^3/uL (1.5-6.6) 03/30/20 05:35 Lymph # (Auto) 1.0 10^3/uL (1.5-3.5) L 03/30/20 05:35 [place] # (Auto) 0.6 10^3/uL (0.0-1.0) 03/30/20 05:35 Eos # (Auto) 0.2 10^3/uL (0.0-0.7) 03/30/20 05:35 Baso # (Auto) 0.0 10^3/uL (0.0-0.1) 03/30/20 05:35 Absolute Nucleated RBC 0.00 x10^3/uL 03/30/20 05:35 Nucleated RBC % 0.0 /100WBC 03/30/20 05:35 Absolute Retic 0.039 10^6/uL (0.020-0.110) 03/27/20 08:04 PT 12.3 secs (9.9-12.6) 03/26/20 11:50 INR 1.1 (0.8-1.2) 03/26/20 11:50 Sodium 135 mmol/L (135-145) 03/30/20 05:35 Potassium 3.8 mmol/L (3.5-5.0) 03/30/20 05:35 Chloride 105 mmol/L (101-111) 03/30/20 05:35 Carbon Dioxide 23 mmol/L (21-32) 03/30/20 05:35 Anion Gap 7.0 (6-13) 03/30/20 05:35 BUN 15 mg/dL (6-20) 03/30/20 05:35 Creatinine 0.7 mg/dL (0.4-1.0) 03/30/20 05:35 Estimated GFR (MDRD) 81 (>89) L 03/30/20 05:35 Glucose 111 mg/dL (70-100) H 03/30/20 05:35 Calcium 7.8 mg/dL (8.5-10.3) L 03/30/20 05:35 Phosphorus 2.6 mg/dL (2.5-4.6) 03/30/20 05:35 Magnesium 2.0 mg/dL (1.7-2.8) 03/30/20 05:35 Iron 157 ug/dL (28-170) 03/27/20 08:04 TIBC 260 ug/dL (250-450) 03/27/20 08:04 % Saturation 60 % (20-50) H 03/27/20 08:04 Transferrin 186 mg/dL (192-382) L 03/27/20 08:04 Ferritin 15.0 ng/mL (11.0-306.8) 03/27/20 08:04 Total Bilirubin 0.8 mg/dL (0.2-1.0) 03/26/20 11:50 AST 21 IU/L (10-42) 03/26/20 11:50 ALT 12 IU/L (10-60) 03/26/20 11:50 Alkaline Phosphatase 77 IU/L (42-121) 03/26/20 11:50 Lactate Dehydrogenase 108 IU/L (91-225) 03/27/20 08:04 Troponin I High Sens 43.2 ng/L (2.3-14.8) H* 03/30/20 05:35 Total Protein 5.9 g/dL (6.7-8.2) L 03/26/20 11:50 Albumin 3.6 g/dL (3.2-5.5) 03/26/20 11:50 Globulin 2.3 g/dL (2.1-4.2) 03/26/20 11:50 Albumin/Globulin Ratio 1.6 (1.0-2.2) 03/26/20 11:50 Triglycerides 56 mg/dL (-149) 03/30/20 05:35 Cholesterol 115 mg/dL (-199) 03/30/20 05:35 LDL Cholesterol, Calc 61 mg/dL (-129) 03/30/20 05:35 VLDL Cholesterol 11 mg/dL 03/30/20 05:35 HDL Cholesterol 43 mg/dL (60-) L 03/30/20 05:35 LDL/HDL Ratio 1.4 (<4.4) 03/30/20 05:35 Cholesterol/HDL Ratio 2.7 (<4.4) 03/30/20 05:35 Lipase 44 U/L (22-51) 03/26/20 11:50 Vitamin B12 957 pg/mL (180-914) H 03/27/20 08:04 TSH 0.26 uIU/mL (0.34-5.60) L 03/28/20 04:40 Urine Color YELLOW 03/29/20 03:15 Urine Clarity CLEAR (CLEAR) 03/29/20 03:15 Urine pH 6.0 PH (5.0-7.5) 03/29/20 03:15 Ur Specific [place] 1.020 (1.002-1.030) 03/29/20 03:15 Urine Protein NEGATIVE mg/dL (NEGATIVE) 03/29/20 03:15 Urine Glucose (UA) NEGATIVE mg/dL (NEGATIVE) 03/29/20 03:15 Urine Ketones NEGATIVE mg/dL (NEGATIVE) 03/29/20 03:15 Urine Occult Blood NEGATIVE (NEGATIVE) 03/29/20 03:15 Urine Nitrite POSITIVE (NEGATIVE) H 03/29/20 03:15 Urine Bilirubin NEGATIVE (NEGATIVE) 03/29/20 03:15 Urine Urobilinogen 0.2 (NORMAL) E.U./dL (NORMAL) 03/29/20 03:15 Ur Leukocyte Esterase TRACE (NEGATIVE) H 03/29/20 03:15 Urine RBC None Seen /HPF (0-5) 03/29/20 03:15 Urine WBC 4-5 /HPF (0-5) 03/29/20 03:15 Ur Squamous Epith Cells RARE Squamous (<= Few) 03/29/20 03:15 Urine Bacteria Moderate /HPF (None Seen) H 03/29/20 03:15 Urine Mucus Few Strands 03/29/20 03:15 Urine Culture Comments INDICATED 03/29/20 03:15 Stl Occult Blood (IFOB) NEGATIVE (NEGATIVE) 03/30/20 09:04 Coronavirus (PCR) NEGATIVE 03/28/20 13:00 Blood Type O POSITIVE 03/26/20 23:58 Blood Type Recheck O POSITIVE 03/27/20 08:04 Antibody Screen NEGATIVE 03/26/20 23:58 Crossmatch IS Only See Detail 03/26/20 23:58 - Procedures Procedures: Procedures EXCISION OF STOMACH, PYLORUS, ENDO, DIAGN (10/28/18) ABX Reporting Has patient been on IV antibiotics over the past 48 hours?: Yes Current Medications - Current Medications Current Medications: Active Medications Acetaminophen (Tylenol) 650 - 975 mg PO Q4HR PRN PRN Reason: PAIN Last Admin: 03/30/20 13:51 Dose: 650 mg Documented by: Aspirin (El) 325 mg PO BID [facility] Last Admin: 03/30/20 09:47 Dose: 325 mg Documented by: Atorvastatin Calcium (Lipitor) 20 mg PO QPM [facility] Last Admin: 03/29/20 20:52 Dose: 20 mg Documented by: Calcium Carbonate/Glycine (Tums) 500 mg PO BID [facility] Last Admin: 03/30/20 09:45 Dose: 500 mg Documented by: Cholecalciferol (Vitamin D3) 800 unit PO DAILY [facility] Last Admin: 03/30/20 09:45 Dose: 800 unit Documented by: Escitalopram Oxalate (Lexapro) 5 mg PO DAILY [facility] Last Admin: 03/30/20 09:45 Dose: 5 mg Documented by: Ferrous Sulfate (Feosol) 325 mg PO DAILYWM [facility] Last Admin: 03/30/20 09:47 Dose: 325 mg Documented by: Ceftriaxone Sodium 1 gm/ (Sodium Chloride) 100 mls @ 200 mls/hr IV DAILY [facility] Last Infusion: 03/30/20 10:18 Dose: Infused Documented by: Sodium Chloride (Normal Saline 0.9%) 1,000 mls @ 100 mls/hr IV .Q10H [facility] Last Admin: 03/30/20 11:22 Dose: 100 mls/hr Documented by: Levothyroxine Sodium (Synthroid) 88 mcg PO QDAC [facility] Last Admin: 03/30/20 05:57 Dose: 88 mcg Documented by: Losartan Potassium (Cozaar) 100 mg PO DAILY [facility] Last Admin: 03/30/20 12:11 Dose: 100 mg Documented by: Metoprolol Tartrate (Lopressor) 12.5 mg PO BID [facility] Morphine Sulfate (Morphine (Carpuject)) 2 mg IVP Q2HR PRN PRN Reason: PAIN Last Admin: 03/29/20 06:10 Dose: 2 mg Documented by: Ondansetron HCl (Zofran Odt) 4 mg TL Q6HR PRN PRN Reason: Nausea / Vomiting Ondansetron HCl (Zofran Inj) 4 mg IVP Q6HR PRN PRN Reason: Nausea / Vomiting Oxycodone HCl (Roxicodone) 5 mg PO Q4HR PRN PRN Reason: PAIN Last Admin: 03/30/20 12:06 Dose: 5 mg Documented by: Pantoprazole Sodium (Protonix) 40 mg PO DAILY [facility] Last Admin: 03/30/20 09:46 Dose: 40 mg Documented by: Phenazopyridine HCl (Pyridium) 100 mg PO TID PRN PRN Reason: urinary irritation Polyethylene Glycol (Miralax) 17 gm PO DAILY PRN PRN Reason: Bowel Protocol Saccharomyces Boulardii (Florastor) 250 mg PO BIDWM [facility] Sodium Chloride (Normal Saline Flush 0.9%) 10 ml IVP 0100,0900,1700 [facility] Last Admin: 03/30/20 09:48 Dose: Not Given Documented by: Sodium Chloride (Normal Saline Flush 0.9%) 10 ml IVP PRN PRN PRN Reason: NEEDED PER PROVIDER ORDERS Last Admin: 03/28/20 18:48 Dose: 10 ml Documented by: Levothyroxine [Synthroid] 100 mcg PO DAILY 05/13/17 Escitalopram Oxalate [Lexapro] 5 mg PO DAILY 03/26/20 Losartan Potassium 100 mg PO DAILY 03/26/20 Omeprazole 40 mg PO DAILY 03/26/20
[2020-03-30] MEDS: SACCHAROMYCES BOULARDII 250 MG CAPSULE PO SCH ×2 (15:04→16:02)
[2020-03-30 15:31] LABS: HGB - HEMOGLOBIN 7.5 g/dL (12.0-16.0)
[2020-03-30] MEDS: ATORVASTATIN 40 MG TABLET PO SCH (20:14)
[2020-03-30] MEDS ORDERED: METOPROLOL TARTRATE 25 MG TABLET PO SCH ×2 (21:00)
[2020-03-31] MEDS: ACETAMINOPHEN 325 MG TABLET PO PRN ×4 (00:36→18:55)
[2020-03-31] MEDS: oxyCODONE 5 MG TABLET PO PRN ×5 (00:37→18:56)
[2020-03-31 06:21] LABS: BASOPHILS % (AUTO) 0.3 %; EOSINOPHILS # (AUTO) 0.3 10^3/uL (0.0-0.7); EOSINOPHILS % (AUTO) 4.4 %; HGB - HEMOGLOBIN 7.5 g/dL (12.0-16.0); LYMPHOCYTES # (AUTO) 1.1 10^3/uL (1.5-3.5); LYMPHOCYTES % (AUTO) 18.3 %; MEAN CORPUSCULAR HEMOGLOBIN 30.9 pg (27.0-31.0); MEAN CORPUSCULAR HGB CONC 32.1 g/dL (32.0-36.0); MEAN CORPUSCULAR VOLUME 96.3 fL (81.0-99.0); MONOCYTES # (AUTO) 0.6 10^3/uL (0.0-1.0); NEUTROPHILS # (AUTO) 3.8 10^3/uL (1.5-6.6); NEUTROPHILS % (AUTO) 65.5 %; PLT - PLATELET COUNT 155 10^3/uL (130-450); RED BLOOD COUNT 2.43 10^6/uL (4.20-5.40); RED CELL DISTRIBUTION WIDTH 14.6 % (12.0-15.0); WHITE BLOOD COUNT 5.7 x10^3/uL (4.8-10.8)
[2020-03-31 06:30] LABS: CALCIUM 8.1 mg/dL (8.5-10.3); CREATININE 0.5 mg/dL (0.4-1.0); MAGNESIUM 2.1 mg/dL (1.7-2.8)
[2020-03-31] MEDS: SODIUM CHLORIDE 0.9% 1,000 ML IV SCH (06:57)
[2020-03-31] MEDS: SACCHAROMYCES BOULARDII 250 MG CAPSULE PO SCH ×2 (07:25→16:01)
[2020-03-31] MEDS: FERROUS SULFATE 325 MG TABLET PO SCH (07:25)
[2020-03-31] MEDS: cefTRIAXone 1 GM in SODIUM CHLORIDE 0.9% MINIBAG 100 ML IV SCH (09:15)
[2020-03-31] MEDS: CALCIUM CARBONATE CHEW 500 MG TABLET PO SCH ×2 (09:16→20:02)
[2020-03-31] MEDS: LOSARTAN 50 MG TABLET PO SCH (09:17)
[2020-03-31] MEDS: CHOLECALCIFEROL 400 UNIT TABLET PO SCH (09:17)
[2020-03-31] MEDS: PANTOPRAZOLE 40 MG TABLET PO SCH (09:18)
[2020-03-31] MEDS: ASPIRIN 325 MG TABLET PO SCH ×2 (09:18→20:03)
[2020-03-31] MEDS: ESCITALOPRAM 10 MG TABLET PO SCH (09:18)
[2020-03-31] MEDS: SODIUM CHLORIDE FLUSH 0.9% 10 ML SYRINGE IVP PRN (09:33)
[2020-03-31] MEDS: SODIUM CHLORIDE FLUSH 0.9% 10 ML SYRINGE IVP SCH ×2 (10:47→16:02)
[2020-03-31] MEDS: CIPROFLOXACIN 250 MG TABLET PO SCH ×2 (11:58→20:02)
--- NOTE | 2020-03-31 13:13 | PROVIDER PROGRESS NOTE ---
Subjective - General Admit Date: 03/26/20 Procedure Date: 03/27/20 Post Op Days: 4 Procedure Performed: Open reduction internal fixation right hip - Review of Systems Wound/Incisions: positive: Dressing dry and intact (small blotting distal dressing) General: positive: No symptoms Musculoskeletal: positive: No symptoms Skin: positive: No symptoms Psychiatric: positive: No symptoms - Other Other Information/Narrative: She has noted some increased swelling to her right lower extremity. Her pain is improving. She has no pain by her hip most of her pain is in the distal thigh and mid thigh. She denies fever or chills. She can move her ankle and foot very well without pain. It is easier with physical therapy each day but she still having pain with getting out of bed. She is alert and seems to have good pain control. She denies dizziness, nausea or vomiting. She does feel more fatigue than usual. Objective - Patient Data Vital Signs: Vital Signs x48h Temp Pulse Pulse Resp BP BP Pulse Ox 03/31/20 12:07 37 C 57 L 58 L 20 141/69 H 95 03/31/20 08:23 37 C 63 20 142/77 H 92 03/31/20 05:44 36.8 C 60 17 165/80 H 94 Intake & Output: Intake and Output Totals x24h 03/29/20 03/30/20 03/31/20 23:59 23:59 23:59 Intake Total 2588.333 4178.333 1203.000 Output Total 1250 1450 2175 Balance 8647.999 4341.333 -972.000 - Lab Results Lab Results: 03/31/20 05:55 03/31/20 05:55 Other Lab Results: Lab Results x24hrs 03/31/20 03/31/20 03/30/20 Range/Units 05:55 05:55 15:24 WBC 5.7 (4.8-10.8) x10^3/uL RBC 2.43 L (4.20-5.40) 10^6/uL Hgb 7.5 L 7.5 L (12.0-16.0) g/dL Hct 23.4 L 23.8 L (37.0-47.0) % MCV 96.3 (81.0-99.0) fL MCH 30.9 (27.0-31.0) pg MCHC 32.1 (32.0-36.0) g/dL RDW 14.6 (12.0-15.0) % Plt Count 155 (130-450) 10^3/uL MPV 11.0 H (7.9-10.8) fL Neut # (Auto) 3.8 (1.5-6.6) 10^3/uL Lymph # (Auto) 1.1 L (1.5-3.5) 10^3/uL [place] # (Auto) 0.6 (0.0-1.0) 10^3/uL Eos # (Auto) 0.3 (0.0-0.7) 10^3/uL Baso # (Auto) 0.0 (0.0-0.1) 10^3/uL Absolute Nucleated RBC 0.00 x10^3/uL Nucleated RBC % 0.0 /100WBC Sodium 139 (135-145) mmol/L Potassium 3.7 (3.5-5.0) mmol/L Chloride 109 (101-111) mmol/L Carbon Dioxide 23 (21-32) mmol/L Anion Gap 7.0 (6-13) BUN 13 (6-20) mg/dL Creatinine 0.5 (0.4-1.0) mg/dL Estimated GFR (MDRD) 119 (>89) Glucose 101 H (70-100) mg/dL Calcium 8.1 L (8.5-10.3) mg/dL Phosphorus 3.0 (2.5-4.6) mg/dL Magnesium 2.1 (1.7-2.8) mg/dL - Current Medications Current Medications: Current Medications Generic Name Dose Route Start Last Admin Trade Name Freq PRN Reason Stop Dose Admin Acetaminophen 650 - 975 mg 03/27/20 11:05 03/31/20 10:56 Tylenol PO 650 mg Q4HR PRN Administration PAIN Aspirin 325 mg 03/27/20 21:00 03/31/20 09:18 El PO 325 mg BID [facility] Administration Atorvastatin Calcium 20 mg 03/29/20 21:00 03/30/20 20:14 Lipitor PO 20 mg QPM [facility] Administration Calcium Carbonate/Glycine 500 mg 03/28/20 21:00 03/31/20 09:16 Tums PO 500 mg BID [facility] Administration Cholecalciferol 800 unit 03/29/20 09:00 03/31/20 09:17 Vitamin D3 PO 800 unit DAILY [facility] Administration Ciprofloxacin 500 mg 03/31/20 12:00 03/31/20 11:58 Cipro PO 04/03/20 11:59 500 mg BID [facility] Administration Escitalopram Oxalate 5 mg 03/27/20 09:00 03/31/20 09:18 Lexapro PO 5 mg DAILY [facility] Administration Ferrous Sulfate 325 mg 03/29/20 16:00 03/31/20 07:25 Feosol PO 325 mg DAILYWM [facility] Administration Sodium Chloride 1,000 mls @ 100 mls/hr 03/29/20 09:00 03/31/20 10:57 Normal Saline 0.9% IV Infused .Q10H [facility] Infusion Levothyroxine Sodium 88 mcg 03/28/20 11:00 03/30/20 05:57 Synthroid PO 88 mcg QDAC [facility] Administration Losartan Potassium 100 mg 03/30/20 12:00 03/31/20 09:17 Cozaar PO 100 mg DAILY [facility] Administration Morphine Sulfate 2 mg 03/27/20 12:50 03/29/20 06:10 Morphine (Carpuject) IVP 2 mg Q2HR PRN Administration PAIN Oxycodone HCl 5 mg 03/30/20 11:56 03/31/20 10:55 Roxicodone PO 5 mg Q4HR PRN Administration PAIN Pantoprazole Sodium 40 mg 03/27/20 09:00 03/31/20 09:18 Protonix PO 40 mg DAILY [facility] Administration Saccharomyces Boulardii 250 mg 03/30/20 14:32 03/31/20 07:25 Florastor PO 250 mg BIDWM [facility] Administration Sodium Chloride 10 ml 03/27/20 17:00 03/31/20 10:47 Normal Saline Flush 0.9% IVP Not Given 0100,0900,1700 [facility] Sodium Chloride 10 ml 03/27/20 11:05 03/31/20 09:33 Normal Saline Flush 0.9% IVP 10 ml PRN PRN Administration NEEDED PER PROVIDER ORDERS - Physical Exam Wound/Incisions: positive: Healing well General Appearance: positive: No acute distress Skin: positive: Color nml Neurologic/Psychiatric: positive: Oriented x3 Comments/Other: Her right leg does not have any pain with passive motion. There is no clinical deformity. She can do a quadricep isometric contraction well without pain. She actively moves her foot and ankle well. Her incisions are clean and dry. She does have swelling to the thigh and lower leg. The swelling is soft to the thigh and calf area. There is no sign of compartment syndrome. Impression/Plan - Problem List Problem List: Status post reverse obliquity intertrochanteric fracture right hip with stabilization consisting of a intramedullary nail with hip screw. Her hemoglobin is low but stable. I suspect the swelling to her thigh and lower leg is related to the fracture and would expect this to resolve over the next couple weeks. I feel she can continue with physical and Occupational Therapy, ambulation with walker, weightbearing as tolerated right leg. I would continue the aspirin for deep venous thrombosis prophylaxis for 6 weeks postop beginning from the date of surgery. She will need orthopedic follow-up when she can return within 2 weeks or at the latest 6 weeks. She does not have sutures that need to be removed.
--- NOTE | 2020-03-31 14:04 | PROVIDER PROGRESS NOTE ---
Subjective - Prog Note Date Prog Note Date: 03/31/20 - Subjective Subjective: She complains of worsening edema in her right leg in the thigh and calf. This has caused her to have more pain today. She is able to move her toes and denies any numbness. Range of motion is decreased due to the edema. Denies dyspnea or chest pain. Current Medications - Current Medications Current Medications: Active Medications Acetaminophen (Tylenol) 650 - 975 mg PO Q4HR PRN PRN Reason: PAIN Last Admin: 03/31/20 10:56 Dose: 650 mg Documented by: Aspirin (El) 325 mg PO BID [facility] Last Admin: 03/31/20 09:18 Dose: 325 mg Documented by: Atorvastatin Calcium (Lipitor) 20 mg PO QPM [facility] Last Admin: 03/30/20 20:14 Dose: 20 mg Documented by: Calcium Carbonate/Glycine (Tums) 500 mg PO BID [facility] Last Admin: 03/31/20 09:16 Dose: 500 mg Documented by: Cholecalciferol (Vitamin D3) 800 unit PO DAILY [facility] Last Admin: 03/31/20 09:17 Dose: 800 unit Documented by: Ciprofloxacin (Cipro) 500 mg PO BID [facility] Stop: 04/03/20 11:59 Last Admin: 03/31/20 11:58 Dose: 500 mg Documented by: Escitalopram Oxalate (Lexapro) 5 mg PO DAILY [facility] Last Admin: 03/31/20 09:18 Dose: 5 mg Documented by: Ferrous Sulfate (Feosol) 325 mg PO DAILYWM [facility] Last Admin: 03/31/20 07:25 Dose: 325 mg Documented by: Sodium Chloride (Normal Saline 0.9%) 1,000 mls @ 100 mls/hr IV .Q10H [facility] Last Infusion: 03/31/20 10:57 Dose: Infused Documented by: Levothyroxine Sodium (Synthroid) 88 mcg PO QDAC [facility] Last Admin: 03/30/20 05:57 Dose: 88 mcg Documented by: Losartan Potassium (Cozaar) 100 mg PO DAILY [facility] Last Admin: 03/31/20 09:17 Dose: 100 mg Documented by: Morphine Sulfate (Morphine (Carpuject)) 2 mg IVP Q2HR PRN PRN Reason: PAIN Last Admin: 03/29/20 06:10 Dose: 2 mg Documented by: Ondansetron HCl (Zofran Odt) 4 mg TL Q6HR PRN PRN Reason: Nausea / Vomiting Ondansetron HCl (Zofran Inj) 4 mg IVP Q6HR PRN PRN Reason: Nausea / Vomiting Oxycodone HCl (Roxicodone) 5 mg PO Q4HR PRN PRN Reason: PAIN Last Admin: 03/31/20 10:55 Dose: 5 mg Documented by: Pantoprazole Sodium (Protonix) 40 mg PO DAILY [facility] Last Admin: 03/31/20 09:18 Dose: 40 mg Documented by: Phenazopyridine HCl (Pyridium) 100 mg PO TID PRN PRN Reason: urinary irritation Polyethylene Glycol (Miralax) 17 gm PO DAILY PRN PRN Reason: Bowel Protocol Saccharomyces Boulardii (Florastor) 250 mg PO BIDWM [facility] Last Admin: 03/31/20 07:25 Dose: 250 mg Documented by: Sodium Chloride (Normal Saline Flush 0.9%) 10 ml IVP 0100,0900,1700 [facility] Last Admin: 03/31/20 10:47 Dose: Not Given Documented by: Sodium Chloride (Normal Saline Flush 0.9%) 10 ml IVP PRN PRN PRN Reason: NEEDED PER PROVIDER ORDERS Last Admin: 03/31/20 09:33 Dose: 10 ml Documented by: Levothyroxine [Synthroid] 100 mcg PO DAILY 05/13/17 Escitalopram Oxalate [Lexapro] 5 mg PO DAILY 03/26/20 Losartan Potassium 100 mg PO DAILY 03/26/20 Omeprazole 40 mg PO DAILY 03/26/20 Objective - Vital Signs/Intake & Output Reviewed Vital Signs: Yes Vital Signs: Vital Signs x48h Temp Pulse Pulse Resp BP Pulse Ox 03/31/20 12:07 37 C 57 L 58 L 20 141/69 H 95 03/31/20 08:23 37 C 63 20 142/77 H 92 Intake & Output: Intake & Output 03/28/20 03/29/20 03/30/20 03/31/20 23:59 23:59 23:59 23:59 Intake Total 2380 2588.333 4178.333 1503.000 Output Total 2150 1250 1450 2325 Balance 230 7951.112 7492.333 -822.000 - Objective General Appearance: positive: No acute distress, Alert Eyes Bilateral: positive: Normal inspection, Conjunctivae nml ENT: positive: ENT inspection nml Neck: positive: Nml inspection Respiratory: positive: No respiratory distress. negative: Wheezes, Rales Cardiovascular: positive: Regular rate & rhythm. negative: Irregularly irregular, Tachycardia, Bradycardia Abdomen: positive: Non-tender, No distention. negative: Tenderness Skin: positive: Warm, Dry, Other (Mild ecchymosis surrounding the right hip incision.) Extremities: positive: Pedal edema (She has about +2 pitting edema throughout her right lower extremity. She is able to move her toes and is neurovascularly intact.) Neurologic/Psychiatric: positive: Oriented x3. negative: Disoriented to person, Disoriented to place, Disoriented to time - Lab Results Fish Bones: 03/31/20 05:55 03/31/20 05:55 Other Labs: Lab Results x24hrs 03/31/20 03/31/20 03/30/20 Range/Units 05:55 05:55 15:24 WBC 5.7 (4.8-10.8) x10^3/uL RBC 2.43 L (4.20-5.40) 10^6/uL Hgb 7.5 L 7.5 L (12.0-16.0) g/dL Hct 23.4 L 23.8 L (37.0-47.0) % MCV 96.3 (81.0-99.0) fL MCH 30.9 (27.0-31.0) pg MCHC 32.1 (32.0-36.0) g/dL RDW 14.6 (12.0-15.0) % Plt Count 155 (130-450) 10^3/uL MPV 11.0 H (7.9-10.8) fL Neut # (Auto) 3.8 (1.5-6.6) 10^3/uL Lymph # (Auto) 1.1 L (1.5-3.5) 10^3/uL [place] # (Auto) 0.6 (0.0-1.0) 10^3/uL Eos # (Auto) 0.3 (0.0-0.7) 10^3/uL Baso # (Auto) 0.0 (0.0-0.1) 10^3/uL Absolute Nucleated RBC 0.00 x10^3/uL Nucleated RBC % 0.0 /100WBC Sodium 139 (135-145) mmol/L Potassium 3.7 (3.5-5.0) mmol/L Chloride 109 (101-111) mmol/L Carbon Dioxide 23 (21-32) mmol/L Anion Gap 7.0 (6-13) BUN 13 (6-20) mg/dL Creatinine 0.5 (0.4-1.0) mg/dL Estimated GFR (MDRD) 119 (>89) Glucose 101 H (70-100) mg/dL Calcium 8.1 L (8.5-10.3) mg/dL Phosphorus 3.0 (2.5-4.6) mg/dL Magnesium 2.1 (1.7-2.8) mg/dL ABX Reporting Has patient been on IV antibiotics over the past 48 hours?: Yes Assessment/Plan - Problem List (1) Closed right hip fracture Impression: She is now postop day 4. She is doing well with physical therapy. Unfortunately, her right lower extremity is quite edematous today. This is likely related to her fracture. There is no evidence of bleeding as her hemoglobin is stable. We will continue the oxycodone as needed for pain control. Aspirin 325 mg twice daily for DVT prophylaxis. We will obtain Dopplers today to evaluate for DVT. We will observe her overnight and if she is stable tomorrow we will [facility] her to a [facility]. Will need Fosamax 2 weeks after the fracture. Qualifiers: Encounter type: initial encounter Qualified Code(s): S72.001A - Fracture of unspecified part of neck of right femur, initial encounter for closed fracture (2) Postoperative anemia Impression: She did require 1 unit of packed red blood cells during this hospitalization but her hemoglobin has since been stable. Do not suspect her lower extremity edema is due to hemorrhage given her hemoglobin has been stable. We will recheck another hemoglobin tomorrow morning. (3) Paroxysmal atrial fibrillation Impression: She had a brief episode of paroxysmal atrial fibrillation postoperatively. She was started on metoprolol but due to bradycardia, this was discontinued. Remains in a sinus rhythm at this time and is rate controlled. Given this was a brief episode, we will not start her on any rate control medications or anticoagulation. Echocardiogram does reveal moderate severe increase in left atrial volume index so she will be at risk for further episodes of atrial fibrillation. I have recommended outpatient follow-up with her primary care provider after rehab to discuss anticoagulation at that time. (4) UTI (urinary tract infection) Impression: Urine culture has grown Pseudomonas which was resistant to ceftriaxone. We will put her on oral ciprofloxacin for 3 days. (5) Hypertension Impression: Her blood pressure stable at this time in the 140s. We will continue her current dose of losartan. Will consider adding a second antihypertensive if becomes elevated further. (6) Hypothyroidism Impression: Stable. Continue Synthroid. (7) Hemochromatosis Impression: Stable. Continue outpatient follow-up. (8) Aortic regurgitation Impression: Stable. This can can continue to be followed on outpatient basis and referral to cardiothoracic surgery can be considered.
--- NOTE | 2020-03-31 14:23 | Ultrasound Report ---
PROCEDURE: Duplex Ext Veins Right INDICATIONS: Right lower extremity edema, pain. Postop. TECHNIQUE: Real-time imaging, as well as color and pulse Doppler interrogation, were performed of the lower extr emity deep veins from the inguinal ligament to the popliteal fossa. COMPARISON: None. FINDINGS: The deep veins are normally compressible, and free of intraluminal thrombus. Color and pu lse Doppler demonstrate normal phasic intraluminal flow. There is normal augmentation response to di stal compression maneuver. IMPRESSION: Negative for deep venous thrombosis of the right lower extremity. Reviewed by: Gomez Cesar MD on 03/31/2020 2:22 PM PDT Approved by: Gomez Cesar MD on 03/31/2020 2:22 PM PDT Station ID: [id number]
[2020-03-31] MEDS: ATORVASTATIN 40 MG TABLET PO SCH (20:02)
[2020-04-01] MEDS: oxyCODONE 5 MG TABLET PO PRN ×3 (02:45→11:56)
[2020-04-01] MEDS: MORPHINE 2 MG/ML CARPUJECT IVP PRN (04:58)
[2020-04-01] MEDS: SODIUM CHLORIDE FLUSH 0.9% 10 ML SYRINGE IVP PRN (04:58)
[2020-04-01] MEDS: ACETAMINOPHEN 325 MG TABLET PO PRN ×3 (05:13→13:25)
[2020-04-01 05:42] LABS: BASOPHILS % (AUTO) 0.5 %; EOSINOPHILS # (AUTO) 0.3 10^3/uL (0.0-0.7); EOSINOPHILS % (AUTO) 4.8 %; HGB - HEMOGLOBIN 8.4 g/dL (12.0-16.0); LYMPHOCYTES # (AUTO) 0.8 10^3/uL (1.5-3.5); LYMPHOCYTES % (AUTO) 13.6 %; MEAN CORPUSCULAR HEMOGLOBIN 30.5 pg (27.0-31.0); MEAN CORPUSCULAR HGB CONC 31.7 g/dL (32.0-36.0); MEAN CORPUSCULAR VOLUME 96.4 fL (81.0-99.0); MEAN PLATELET VOLUME 10.6 fL (7.9-10.8); MONOCYTES # (AUTO) 0.7 10^3/uL (0.0-1.0); MONOCYTES % (AUTO) 11.7 %; NEUTROPHILS % (AUTO) 68.4 %; PLT - PLATELET COUNT 200 10^3/uL (130-450); RED BLOOD COUNT 2.75 10^6/uL (4.20-5.40); RED CELL DISTRIBUTION WIDTH 14.6 % (12.0-15.0); WHITE BLOOD COUNT 5.8 x10^3/uL (4.8-10.8)
[2020-04-01 06:00] LABS: CALCIUM 8.2 mg/dL (8.5-10.3); CREATININE 0.7 mg/dL (0.4-1.0); MAGNESIUM 2.1 mg/dL (1.7-2.8); PHOSPHORUS 3.1 mg/dL (2.5-4.6)
[2020-04-01] MEDS: LEVOTHYROXINE 88 MCG TABLET PO SCH (06:49)
[2020-04-01] MEDS: SODIUM CHLORIDE 0.9% 1,000 ML IV SCH (07:17)
--- NOTE | 2020-04-01 07:33 | Discharge Plan ---
"Discharge Plan for SNF / [facility] - Discharge Plan And Transition Orders Problem Reviewed?: Yes Disposition: 01 Home, Self Care Condition: Stable Allergies and Adverse Reactions: Allergies Allergy/AdvReac Type Severity Reaction Status Date / Time erythromycin base Allergy Mild Nausea Verified 10/27/18 14:59 Penicillins Allergy Mild Rash Verified 10/27/18 14:59 clindamycin Allergy Rash Verified 10/28/18 12:41 adhesive tape AdvReac Mild Hives Verified 03/31/20 16:01 Health Concerns: She was admitted on March 26 for right hip fracture and underwent an open reduction internal fixation right hip fracture with Torres & Nephew InterTAN locked nail on March 27 with orthopedic surgery. Her postoperative course was complicated by new onset atrial fibrillation. This was quite brief. She was started on a beta-omari initially but she converted back to a sinus rhythm and she is bradycardic at baseline and so the beta-omari was discontinued. She has remained in sinus bradycardia since then. This was discussed with the patient that she will need outpatient follow-up with a primary care provider and potentially cardiology to discuss the risk and benefit of anticoagulation in the future and she is agreeable to this. She also had postoperative anemia and required 1 unit of packed red blood cell transfusion. Her hemoglobin has remained stable since then with no evidence of bleeding. She did also have a fever postoperatively and was pancultured. Her urinalysis was suggestive of infection and she was started on ceftriaxone empirically. Her urine culture ended up growing Pseudomonas which was resistant to ceftriaxone. Although clinically she had improved given she remained afebrile, a decision was made to treat her with oral ciprofloxacin for 3 more days and she will need 1 more day of treatment. The day prior to discharge, it was noted her right lower extremity was quite edematous and somewhat painful. Doppler of the lower right extremity was obtained which was negative for DVT. She was evaluated by orthopedic surgery and it was felt the edema was just elated to the hip fracture and there was low concern for bleeding especially given the fact her hemoglobin has remained st able. Plan of Treatment: She will need aspirin 325 mg twice daily for 6 weeks. She will need 1 more day of oral ciprofloxacin and the last day of treatment will be April 02. She will need to initiate Fosamax 70 mg weekly on April 09. She will need orthopedic follow-up within 2 weeks. - SNF / [facility] Transition Orders Admit to (Facility): [facility] Discharge Diagnosis: Closed right hip fracture- stable. Postoperative anemia - improving. Paroxysmal atrial fibrillation - resolved. Urinary tract infection - improving. Hypertension - stable. Hypothyroidism - stable. Hemochromatosis - stable. Aortic regurgitation - stable. Medicare Certification Statement: [facility] cert[facility] is medically necessary on a continuing basis for any of the conditions for which she/he is receiving care during hospitalization. Notify PCP of admission and forward orders to primary provider for signature. Other Notification Orders: Call PCP immediately if patient develops dyspnea, chest pain/tightness or edema. House Bowel Program: Yes Additional Bowel Program Orders: If no BM after 2 days, nurse may give M.O.M. 30ml PO PRN and/or ducolax Supp 1 VA and/or LISA 250mg P.O., and/or senna 1-2 tabs PO. On day 3 nurse may give repeat above order until residents constipation is resolved. Medication Orders: PLEASE REFER TO THE DISCHARGE MEDICATION LIST. - Medications New Prescriptions: oxyCODONE [Roxicodone] 5 mg PO Q4HR PRN #28 tablet PRN Reason: Pain Acetaminophen [Tylenol] 650 mg PO Q6HR PRN #30 tablet PRN Reason: Pain Aspirin [El] 325 mg PO BIDWM #74 tablet Ciprofloxacin [Cipro] 500 mg PO BID #6 tablet Alendronate [Fosamax] 70 mg PO Q7D #4 tablet Levothyroxine [Synthroid] 88 mcg PO QDAC #30 tablet Calcium Carbonate [Tums (Calcium Carbonate 500mg)] 500 mg PO BID@1000,2200 #60 tablet Cholecalciferol [Vitamin D3] 800 unit PO DAILY #30 tablet - Diet Type: Geriatric Texture: Regular Liquids: Thin - Therapies | Activity Therapy: Evaluation | Treat if indicated: PT, OT Rehabilitation Potential: Maximize functional status Activity: Wt Bearing as Tolerated Follow Up: She will need orthopedic follow-up within 2 weeks."
--- NOTE | 2020-04-01 08:39 | DISCHARGE SUMMARY ---
"Discharge Summary Admit Date: 03/26/20 Discharge Date: 04/01/20 Discharging Provider: Rosales Chin Primary Care Provider: Philomena Brewer Code Status: Attempt Resuscitation Condition at Discharge: Stable Discharge Disposition: SNF DC/Xfer [facility]charge [facility]: [facility] - DIAGNOSES Admission Diagnoses: Closed right hip fracture Preop examination Aortic regurgitation Hypertension Hypothyroidism Hemochromatosis Discharge Diagnoses with Status of Each Condition: Closed right hip fracture- stable. Postoperative anemia - improving. Paroxysmal atrial fibrillation - resolved. Urinary tract infection - improving. Hypertension - stable. Hypothyroidism - stable. Hemochromatosis - stable. Aortic regurgitation - stable. - HPI History of Present Illness: This is a very pleasant 79-year-old female with a past medical history significant for hypertension, hypothyroidism, hemochromatosis who presents today after a fall complaining of right hip pain. She states she was playing pickle ball today when she was walking backwards when she stumbled and fell on the right side of her hip. She reports no syncope, loss of consciousness, chest pain, palpitations. She did not hit her head. She complains of right hip pain and decreased range of motion of the right hip. She reports she is quite active normally and plays pickle ball twice a week and tries to hike 3-4 times a week as well. She gets no chest pain or dyspnea. She has no prior history of arrh ythmias, coronary artery disease, CHF, diabetes, renal disease. She has no history of COPD. In the emergency department, she was found to be afebrile temperature of 36.3 C. She was bradycardic with a heart rate in the 50s. Blood pressure was 134/71. She was not tachypneic and saturating well on room air. Her labs were unremarkable. Imaging of the right hip revealed a right intertrochanteric fracture. This was discussed with orthopedic surgery and she will be admitted to the hospitalist service for surgical intervention. - CONSULTS | PROCEDURES Consultations: Orthopedic Surgery, PT/OT, Social Work - HOSPITAL COURSE Hospital Course: She was admitted on March 26 for right hip fracture and underwent an open reduction internal fixation right hip fracture with Torres & Nephew InterTAN locked nail on March 27 with orthopedic surgery. Her postoperative course was complicated by new onset atrial fibrillation. This was quite brief. She was started on a beta-omari initially but she converted back to a sinus rhythm and she is bradycardic at baseline and so the beta-omari was discontinued. She has remained in sinus bradycardia since then. This was discussed with the patient that she will need outpatient follow-up with a primary care provider and potentially cardiology to discuss the risk and benefit of anticoagulation in the future and she is agreeable to this. She also had postoperative anemia and required 1 unit of packed red blood cell transfusion. Her hemoglobin has remained stable since then with no evidence of bleeding. She did also have a fever postoperatively and was pancultured. Her urinalysis was suggestive of infection and she was started on ceftriaxone empirically. Her urine culture ended up growing Pseudomonas which was resistant to ceftriaxone. Although clinically she had improved given she remained afebrile, a decision was made to treat her with oral ciprofloxacin for 3 more days and she will need 1 more day of treatment. The day prior to discharge, it was noted her right lower extremity was quite edematous and somewhat painful. Doppler of the lower right extremity was obtained which was negative for DVT. She was evaluated by orthopedic surgery and it was felt the edema was just elated to the hip fracture and there was low concern for bleeding especially given the fact her hemoglobin has remained stable. She will need aspirin 325 mg twice daily for 6 weeks. She will need to initiate Fosamax 70 mg weekly on April 09. - ALLERGIES Allergies/Adverse Reactions: Allergies Allergy/AdvReac Type Severity Reaction Status Date / Time erythromycin base Allergy Mild Nausea Verified 10/27/18 14:59 Penicillins Allergy Mild Rash Verified 10/27/18 14:59 clindamycin Allergy Rash Verified 10/28/18 12:41 adhesive tape AdvReac Mild Hives Verified 03/31/20 16:01 - MEDICATIONS Home Medications: Ambulatory Orders Medication Instructions Recorded Confirmed Escitalopram Oxalate [Lexapro] 5 mg PO DAILY 03/26/20 03/26/20 Losartan Potassium 100 mg PO DAILY 03/26/20 03/26/20 Omeprazole 40 mg PO DAILY 03/26/20 03/26/20 Acetaminophen [Tylenol] 650 mg PO Q6HR PRN #30 tablet 04/01/20 Alendronate [Fosamax] 70 mg PO Q7D #4 tablet 04/01/20 Aspirin [El] 325 mg PO BIDWM #74 tablet 04/01/20 Calcium Carbonate [Tums (Calcium 500 mg PO BID@1000,2200 #60 tablet 04/01/20 Carbonate 500mg)] Cholecalciferol [Vitamin D3] 800 unit PO DAILY #30 tablet 04/01/20 Ciprofloxacin [Cipro] 500 mg PO BID #6 tablet 04/01/20 Levothyroxine [Synthroid] 88 mcg PO QDAC #30 tablet 04/01/20 oxyCODONE [Roxicodone] 5 mg PO Q4HR PRN #28 tablet 04/01/20 - PHYSICAL EXAM AT DISCHARGE General Appearance: positive: No acute distress, Alert Eyes Bilateral: positive: Normal inspection, Conjunctivae nml ENT: positive: ENT inspection nml Neck: positive: Nml inspection Respiratory: positive: No respiratory distress. negative: Wheezes, Rales Cardiovascular: positive: Regular rate & rhythm. negative: Irregularly irregular, Tachycardia, Bradycardia, Systolic murmur Abdomen: positive: Non-tender, No distention. negative: Tenderness, Guarding, Rebound Skin: positive: Warm, Dry Extremities: positive: Pedal edema (+1 to +2 pitting edema in her right lower extremity. She is neurovascularly intact.), Other (Dressing is in place over the lateral aspect of the right hip. There is an area ecchymosis of the pos terior aspect of the right thigh.) Neurologic/Psychiatric: positive: Oriented x3, Sensation nml. negative: Disoriented to person, Disoriented to place, Disoriented to time Physical Exam Other/Comments: Vital Signs - 24 hr 03/31/20 03/31/20 03/31/20 17:00 20:00 23:35 Temperature 36.4 C L 36.5 C 37.0 C Heart Rate [ 55 L 63 62 Brachial] Respiratory 18 18 16 Rate Blood Pressure 152/75 H 171/92 H 139/53 H [Left Brachial artery] Blood Pressure [Right Brachial artery] O2 Saturation 98 94 94 04/01/20 04/01/20 04/01/20 02:55 08:22 11:55 Temperature 36.9 C 36.7 C 37 C Heart Rate [ 65 62 64 Brachial] Respiratory 16 22 20 Rate Blood Pressure [Left Brachial artery] Blood Pressure 129/53 L 153/78 H 150/84 H [Right Brachial artery] O2 Saturation 93 92 94 Oxygen O2 Source Room air - LABS Result Diagrams: 04/01/20 05:20 04/01/20 05:20 Other Lab Results: Laboratory Results - last 24 hr 04/01/20 04/01/20 05:20 05:20 WBC 5.8 RBC 2.75 L Hgb 8.4 L Hct 26.5 L MCV 96.4 MCH 30.5 MCHC 31.7 L RDW 14.6 Plt Count 200 MPV 10.6 Neut # (Auto) 4.0 Lymph # (Auto) 0.8 L [place] # (Auto) 0.7 Eos # (Auto) 0.3 Baso # (Auto) 0.0 Absolute Nucleated RBC 0.00 Nucleated RBC % 0.0 Sodium 139 Potassium 3.6 Chloride 108 Carbon Dioxide 23 Anion Gap 8.0 BUN 10 Creatinine 0.7 Estimated GFR (MDRD) 81 L Glucose 106 H Calcium 8.2 L Phosphorus 3.1 Magnesium 2.1 - DIAGNOSTIC IMAGING Diagnostic Imaging Results: Final report reviewed - QUALITY (Female Hip Fx Only) Was patient sent home on osteoporosis medication?: Yes - FOLLOW UP Follow Up: She will need orthopedic follow-up in 2 weeks. - TIME SPENT Time Spent in Discharge (Minutes): 34"
[2020-04-01] MEDS ORDERED: PANTOPRAZOLE 40 MG TABLET PO SCH (09:00)
[2020-04-01] MEDS ORDERED: ASPIRIN 325 MG TABLET PO SCH (09:00)
[2020-04-01] MEDS: SODIUM CHLORIDE FLUSH 0.9% 10 ML SYRINGE IVP SCH ×2 (09:16→09:28)
[2020-04-01] MEDS: ESCITALOPRAM 10 MG TABLET PO SCH (09:24)
[2020-04-01] MEDS: CIPROFLOXACIN 250 MG TABLET PO SCH (09:25)
[2020-04-01] MEDS: SACCHAROMYCES BOULARDII 250 MG CAPSULE PO SCH (09:26)
[2020-04-01] MEDS: CHOLECALCIFEROL 400 UNIT TABLET PO SCH (09:27)
[2020-04-01] MEDS: LOSARTAN 50 MG TABLET PO SCH (09:27)
[2020-04-01] MEDS ORDERED: CALCIUM CARBONATE CHEW 500 MG TABLET PO SCH (10:00)
[2020-04-01 11:57] VITALS: BP 150/84
== END 2020-04-01 13:26 | DRG 481 ==
LOC: EDUNIT# → ED 11:13 → MS2 12:35
PROVIDERS: ADMIT Internal Medicine; ATTEND Internal Medicine
PROC: 0QS604Z Reposition Right Upper Femur with Internal Fixation Device, Open Approach (ICD-10-PCS; principal; 2020-03-27 08:00)
PROC: 30233N1 Transfusion of Nonautologous Red Blood Cells into Peripheral Vein, Percutaneous Approach (ICD-10-PCS; 2020-03-29)
DX: S72.141A Displaced intertrochanteric fracture of right femur, initial encounter for closed fracture (principal); N39.0 Urinary tract infection, site not specified; I24.8 Other forms of acute ischemic heart disease; W01.0XXA Fall on same level from slipping, tripping and stumbling without subsequent striking against object, initial encounter; Y93.69 Activity, other involving other sports and athletics played as a team or group; I48.0 Paroxysmal atrial fibrillation; R00.1 Bradycardia, unspecified; D64.9 Anemia, unspecified; B96.5 Pseudomonas (aeruginosa) (mallei) (pseudomallei) as the cause of diseases classified elsewhere; I10 Essential (primary) hypertension; E03.9 Hypothyroidism, unspecified; Z20.828 Contact with and (suspected) exposure to other viral communicable diseases; I08.0 Rheumatic disorders of both mitral and aortic valves; E83.119 Hemochromatosis, unspecified; R60.0 Localized edema
CPT/HCPCS: 36415; 71045; 73502; 80048; 80053; 80061; 81001; 82274; 82607; 82728; 83540; 83615; 83690; 83735; 84100; 84443; 84466; 84484; 85014; 85018; 85025; 85045; 85610; 86850; 86900; 86901; 86920; 87040; 87077; 87086; 87181; 93005; 93306; 93971; 97116; 97161; 97165; 97530; 99283; 99285; A9270; C1713; J0131; J1170; J7120; P9016; Q0162; U0004; 83721

== ENCOUNTER 2020-05-24 10:26 | Outpatient (CLI) | payer MEDICARE, OTHER ==
--- NOTE | 2020-05-24 10:28 | XRAY Report ---
PROCEDURE: Hip w/Pelvis 1V RT INDICATIONS: DISPLACED INTERTROCHANTERIC FX OF R FEMUR TECHNIQUE: AP pelvis with lateral view(s) of the bilateral hip(s). COMPARISON: X-ray right hip with pelvis, 03/26/2020. FINDINGS: Bones: Open reduction and internal fixation of intertrochanteric right femoral neck fracture with an intramedullary walker and 2 compression screws. The alignment is anatomic. Fracture lines less distinct with mild callus formation. Pelvic ring appears intact. No suspicious bony lesions. Soft tissues: The visualized bowel gas pattern is normal. No suspicious soft tissue calcifications. IMPRESSION: ORIF of right intertrochanteric femoral neck fracture with mild interval healing. Reviewed by: Vargas Ashby MD on 05/24/2020 10:26 AM PST Approved by: Vargas Ashby MD on 05/24/2020 10:26 AM PST Station ID: [id number]
== END 2020-05-24 23:56 | disposition home or self-care (01) ==
LOC: DI.N 10:26
PROVIDERS: ATTEND Orthopaedic Surgery
DX: S72.141A Displaced intertrochanteric fracture of right femur, initial encounter for closed fracture (principal)

== ENCOUNTER 2020-07-12 08:00 | Outpatient (CLI) | payer MEDICARE, OTHER ==
--- NOTE | 2020-07-12 11:20 | XRAY Report ---
PROCEDURE: Hip w/Pelvis 1V RT INDICATIONS: RIGHT FEMUR FRACTURE TECHNIQUE: 2 AP views of the pelvis and crosstable lateral view of the right hip. COMPARISON: Right hip radiographs 05/24/2020 FINDINGS: Bones: Postsurgical changes are again seen from fixation of the previously seen proximal femoral frac ture. The metallic hardware is intact with unchanged alignment. Mild increased callus formation is se en compatible with progressive healing changes. The lucent fracture line is still visualized. There i s generalized osteopenia. Soft tissues: The visualized bowel gas pattern is normal. No suspicious soft tissue calcifications. IMPRESSION: Postsurgical changes again seen from proximal femoral fracture fixation with mild progre ssive healing changes. Reviewed by: Enrico Kay MD on 07/12/2020 11:19 AM PST Approved by: Enrico Kay MD on 07/12/2020 11:19 AM PST Station ID: [id number]
--- NOTE | 2020-07-12 11:22 | XRAY Report ---
PROCEDURE: Femur 2V RT INDICATIONS: RT FEMUR FRACTURE TECHNIQUE: 5 views of the femur were acquired. COMPARISON: Right hip radiographs 05/24/2020 FINDINGS: Bones: Postsurgical changes again seen from fixation of the previously seen proximal femoral fracture . The metallic hardware is intact with unchanged alignment. The distal tip of the femoral diaphyseal however component abuts the lateral cortex. Increased callus formation is seen compatible with progre ssive healing changes. There is generalized osteopenia. Soft tissues: No suspicious soft tissue calcifications or masses. IMPRESSION: Postsurgical changes again seen from proximal femoral fracture fixation with progressive healing martinez ges and unchanged alignment. Reviewed by: Enrico Kay MD on 07/12/2020 11:21 AM PST Approved by: Enrico Kay MD on 07/12/2020 11:21 AM PST Station ID: [id number]
== END 2020-07-12 23:59 | disposition home or self-care (01) ==
LOC: DI.N 08:00
PROVIDERS: ATTEND Orthopaedic Surgery
DX: S72.141A Displaced intertrochanteric fracture of right femur, initial encounter for closed fracture (principal)

== ENCOUNTER 2020-08-17 04:32 | Outpatient (CLI) | payer MEDICARE, OTHER | END 2020-08-17 04:33 | disposition critical access hospital (66) | LOC: EMS 04:32 | PROVIDERS: ATTEND Emergency Medicine | DX: M54.5 Low back pain (principal); Z91.81 History of falling | CPT/HCPCS: A0425; A0429 ==

== ENCOUNTER 2020-08-17 05:02 | Emergency (ER) | payer MEDICARE, OTHER ==
--- NOTE | 2020-08-17 05:23 | ED Physician Documentation ---
PD HPI BACK PAIN - Stated complaint Stated Complaint: LOWER BACK PAIN - Chief complaint Chief Complaint: Back Pain - History obtained from History obtained from: Patient - History of Present Illness Timing - onset: Last night Timing - duration: Hours Timing - details: Abrupt onset, Still present Location: Lower Quality: Pain, Spasm, Sharp Associated symptoms: Hematuria. No: Fever, Weakness, Numbness, Incontinent of urine, Unable to urinate, Incontinent of stool Improves with: Rest Worsened by: Movement Similar symptoms before: Has not had sx before Recently seen: Clinic, Surgery - Additional information Additional information: 80-year-old female who had a fall in March while playing [place] ball had a hip fracture repaired and she has had some physical therapy and she has had some fatigue associated with physical therapy. She had a fall in the snow about 10 days ago landing on her buttocks and has had pain in her buttocks since that time. This morning she went to get up and had severe low back pain. She has not had pain in this area of her back associated with this prior injury until this morning. Review of Systems Constitutional: denies: Fever, Chills Eyes: denies: Decreased vision Ears: denies: Ear pain Nose: denies: Rhinorrhea / runny nose, Congestion Throat: denies: Sore throat Cardiac: denies: Chest pain / pressure, Palpitations Respiratory: denies: Dyspnea GI: denies: Abdominal Pain, Nausea, Vomiting : reports: Hematuria, Other (not urinating usual). 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 Derm: Other - Present Medications Home Medications: Ambulatory Orders Medication Instructions Recorded Confirmed Escitalopram Oxalate [Lexapro] 5 mg PO DAILY 03/26/20 08/17/20 Losartan Potassium 100 mg PO DAILY 03/26/20 08/17/20 Omeprazole 40 mg PO DAILY 03/26/20 08/17/20 Alendronate [Fosamax] 70 mg PO Q7D #4 tablet 04/01/20 08/17/20 Calcium Carbonate [Tums (Calcium 500 mg PO BID@1000,2200 #60 tablet 04/01/20 08/17/20 Carbonate 500mg)] Cholecalciferol [Vitamin D3] 800 unit PO DAILY #30 tablet 04/01/20 08/17/20 Levothyroxine [Synthroid] 88 mcg PO QDAC #30 tablet 04/01/20 08/17/20 Cyclobenzaprine [Flexeril] 10 mg PO TID PRN #20 tab 08/17/20 HYDROcod/ACETAM 5/325 [[place] 5/325] 1 - 2 ea PO Q6H PRN #15 tab 08/17/20 - Allergies Allergies/Adverse Reactions: Allergies Allergy/AdvReac Type Severity Reaction Status Date / Time erythromycin base Allergy Mild Nausea Verified 08/17/20 05:11 Penicillins Allergy Mild Rash Verified 08/17/20 05:11 clindamycin Allergy Rash Verified 08/17/20 05:11 adhesive tape AdvReac Mild Hives Verified 08/17/20 05:11 - Social History Does the pt smoke?: No Smoking Status: Never smoker Does the pt drink ETOH?: Yes Does the pt have substance abuse?: No - Immunizations Immunizations are current?: Yes PD ED PE NORMAL - Vitals Vital signs reviewed: Yes (hypertensive ) - General General: Alert and oriented X 3, No acute distress, Well developed/nourished, Other (pleasant 80y/o female in no distress sitting upright and appears c omfortable. ) - HEENT HEENT: Atraumatic, PERRL, EOMI - Neck Neck: Supple, no meningeal sign - Cardiac Cardiac: RRR, No murmur - Respiratory Respiratory: No respiratory distress, Clear bilaterally - Abdomen Abdomen: Normal bowel sounds, Soft, Non tender, No organomegaly - Back Back: No CVA TTP, No spinal TTP, Other (There is minimal tenderness to the paraspinous muscles of the lumbar spine worse on the right. There is pain into the scicatic notch ) - Derm Derm: Normal color, Warm and dry, No rash - Extremities Extremities: No deformity, No edema - Neuro Neuro: Alert and oriented X 3, reticle printer 2-12 intact, No motor deficit, No sensory deficit, Normal speech Eye Opening: Spontaneous Motor: Obeys Commands Verbal: Oriented GCS Score: 15 - Psych Psych: Normal mood, Normal affect Results - Vitals Vitals: Vital Signs - 24 hr 08/17/20 08/17/20 08/17/20 05:07 05:16 06:18 Temperature 36.4 C L 36.4 C L 36.4 C L Heart Rate 63 60 61 Respiratory 18 16 16 Rate Blood Pressure 199/94 H 175/85 H 173/97 H O2 Saturation 98 98 97 Oxygen O2 Source Room air - Labs Labs: Laboratory Tests 08/17/20 06:45 Urine Color LT. YELLOW Urine Clarity CLEAR Urine pH 6.0 Ur Specific [place] 1.015 Urine Protein NEGATIVE Urine Glucose (UA) NEGATIVE Urine Ketones NEGATIVE Urine Occult Blood NEGATIVE Urine Nitrite NEGATIVE Urine Bilirubin NEGATIVE Urine Urobilinogen 0.2 (NORMAL) Ur Leukocyte Esterase SMALL H Urine RBC 0-5 Urine WBC 0-3 Ur Squamous Epith Cells FEW Squamous Urine Bacteria Few Ur Microscopic Review INDICATED - Rads (name of study) sacrum and coccyx Radiology: Prelim report reviewed (Impression: No significant abnormality involving the sacrum. Lumbar facet arthropathy. Right hip osteoarthropathy with femoral fixation.), EMP read indepedently, See rad report lumbar spine Radiology: Prelim report reviewed (Impression: No acute bony abnormality. Mild multilevel degenerative disc disease. Multilevel facet arthropathy.), EMP read indepedently, See rad report Procedures - IVC sono (time) 0520 Bedside IVC sono: IVC measures (cm) (1.29), IVC collapsed c insp (cm) (complete), Dehydration (est 1 liter deficit) PD MEDICAL DECISION MAKING - ED course Complexity details: reviewed results, re-evaluated patient, considered differential, d/w patient ED course: 80-year-old female who has had a fall and a fracture of her hip has had this repaired and she is undergoing physical therapy. This seems to be stable and the patient has had a fall injuring her buttocks and she continues to have pain and today she appears a bit dehydrated and has had acute back spasm. We did obtain imaging of the sacrum and coccyx as well as the lumbar spine without evidence of fracture and we will treat her for spasm. I have asked her to hydrate orally and we will provide some pain medication a muscle relaxant. Departure - Departure Disposition: 01 Home, Self Care Clinical Impression: Spasm of lumbar paraspinous muscle Condition: Stable Instructions: ED Spasm Back No Trauma Follow-Up: Philomena Brewer MD [Primary Care Provider] - Prescriptions: Cyclobenzaprine [Flexeril] 10 mg PO TID PRN #20 tab PRN Reason: Spasms HYDROcod/ACETAM 5/325 [[place] 5/325] 1 - 2 ea PO Q6H PRN #15 tab PRN Reason: Pain
[2020-08-17 06:54] LABS: BILIRUBIN,URINE NEGATIVE (NEGATIVE); GLUCOSE, URINE (UA) NEGATIVE (NEGATIVE); KETONES,URINE (UA) NEGATIVE (NEGATIVE); LEUKOCYTE ESTERASE, URINE SMALL (NEGATIVE); NITRITE,URINE NEGATIVE (NEGATIVE); OCCULT BLOOD,URINE NEGATIVE (NEGATIVE); PROTEIN,URINE NEGATIVE (NEGATIVE); UROBILINOGEN,URINE 0.2 (NORMAL) E.U./dL (NORMAL)
[2020-08-17 07:03] LABS: CLARITY,URINE CLEAR (CLEAR)
[2020-08-17 07:07] LABS: BACTERIA,URINE Few /HPF (None Seen); RBC,URINE 0-5 /HPF (0-5); SQUAMOUS EPITHELIAL CELL,UR FEW Squamous (<= Few)
[2020-08-17] MEDS ORDERED: KETOROLAC 30 MG/ML VIAL IM STA (07:27)
[2020-08-17 07:48] VITALS: BP 196/92
--- NOTE | 2020-08-17 07:54 | XRAY Report ---
PROCEDURE: Sacrum/Coccyx INDICATIONS: fall buttocks pain TECHNIQUE: 3 views of the sacrum and coccyx acquired. COMPARISON: No prior sacrum study. FINDINGS: Bones: No definite fractures or dislocations. No suspicious bony lesions. Soft tissues: Visualized bowel gas pattern is normal. No suspicious soft tissue densities. IMPRESSION: No definite acute trauma found. Moderately severe degenerative changes at the lumbosacral spine parti ally visualized. Prior hip surgery metallic devices. Please note that sacrum injury visualization by plain film is relatively limited and MR scanning with out contrast, screening study, provides accurate assessment is clinically warranted. Reviewed by: Clark Guthrie MD on 08/17/2020 7:53 AM PST Approved by: Clark Guthrie MD on 08/17/2020 7:53 AM PST Station ID: [id number]
--- NOTE | 2020-08-17 07:57 | XRAY Report ---
PROCEDURE: Lumbar Spine 2 View INDICATIONS: low back pain fall 10 days ago TECHNIQUE: 2 views of the lumbar spine were acquired. COMPARISON: Hip and pelvis plain films from 2019 reviewed.. FINDINGS: Bones: 5 [id number] vertebrae are present. There is normal bony alignment. No vertebral body compression fractures. No suspicious bony lesions. Degenerative disc disease and facet osteoarthrit is over the middle and lower thirds of the thoracic spine is moderate in severity at the disc spaces and moderately severe at the facet joints of L4-5 and L5-S1. Soft tissues: Overlying bowel gas pattern is normal. No suspicious soft tissue calcifications. IMPRESSION: Chronic moderate to moderately severe degenerative changes most pronounced at the facet joints of L4-5 and L5-S1 but no trauma found. Reviewed by: Clark Guthrie MD on 08/17/2020 7:55 AM PST Approved by: Clark Guthrie MD on 08/17/2020 7:55 AM PST Station ID: [id number]
== END 2020-08-17 07:57 | disposition home or self-care (01) ==
LOC: EDUNIT# → EDBD → ED 05:02
DX: M62.830 Muscle spasm of back (principal); W00.9XXA Unspecified fall due to ice and snow, initial encounter; I10 Essential (primary) hypertension
CPT/HCPCS: 81001; 81003; 96372; 99284

== ENCOUNTER 2020-08-19 08:56 | Outpatient (CLI) | payer MEDICARE, OTHER | END 2020-08-19 08:57 | disposition critical access hospital (66) | LOC: EMS 08:56 | PROVIDERS: ATTEND Emergency Medicine | DX: M62.838 Other muscle spasm (principal); R53.1 Weakness | CPT/HCPCS: A0425; A0429 ==

== ENCOUNTER 2020-08-19 09:25 | Emergency (ER) | payer MEDICARE, OTHER ==
--- NOTE | 2020-08-19 09:40 | ED Physician Documentation ---
History of Present Illness - Stated complaint Stated Complaint: BACK PX - Chief complaint Chief Complaint: General - History obtained from History obtained from: Patient - Additonal information Additional information: This is a marlyn 80-year-old [place] In March of last year she fell and broke her hip which was repaired. She is had 2 recent falls, one necessitating a visit a couple of days ago where imaging was negative, she had another fall after that but is a vague historian, it sounds like the fall was today and she does not feel like she was hurt but she is not sure. She complains of continued pain in the right hip and low back. 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 Derm: Other - Present Medications Home Medications: Ambulatory Orders Medication Instructions Recorded Confirmed Escitalopram Oxalate [Lexapro] 5 mg PO DAILY 03/26/20 08/19/20 Losartan Potassium 100 mg PO DAILY 03/26/20 08/19/20 Omeprazole 40 mg PO DAILY 03/26/20 08/19/20 Alendronate [Fosamax] 70 mg PO Q7D #4 tablet 04/01/20 08/19/20 Calcium Carbonate [Tums (Calcium 500 mg PO BID@1000,2200 #60 tablet 04/01/20 08/19/20 Carbonate 500mg)] Cholecalciferol [Vitamin D3] 800 unit PO DAILY #30 tablet 04/01/20 08/19/20 Levothyroxine [Synthroid] 88 mcg PO QDAC #30 tablet 04/01/20 08/19/20 Cyclobenzaprine [Flexeril] 10 mg PO TID PRN #20 tab 08/17/20 08/19/20 HYDROcod/ACETAM 5/325 [[place] 5/325] 1 - 2 ea PO Q6H PRN #15 tab 08/17/20 08/19/20 - Allergies Allergies/Adverse Reactions: Allergies Allergy/AdvReac Type Severity Reaction Status Date / Time erythromycin base Allergy Mild Nausea Verified 08/19/20 09:33 Penicillins Allergy Mild Rash Verified 08/19/20 09:33 clindamycin Allergy Rash Verified 08/19/20 09:33 adhesive tape AdvReac Mild Hives Verified 08/19/20 09:33 - Social History Does the pt smoke?: No Smoking Status: Never smoker Does the pt drink ETOH?: Yes Does the pt have substance abuse?: No - Immunizations Immunizations are current?: Yes PD ED PE NORMAL - Vitals Vital signs reviewed: Yes - General General: No acute distress, Other (A/O x 2 (thinks month is Jun), mild confusion) - HEENT HEENT: PERRL, EOMI - Neck Neck: Supple, no meningeal sign, No bony TTP - Cardiac Cardiac: RRR, No murmur - Respiratory Respiratory: No respiratory distress, Clear bilaterally - Abdomen Abdomen: Normal bowel sounds, Soft - Back Back: No CVA TTP, No spinal TTP - Derm Derm: Normal color, Warm and dry - Extremities Extremities: Other (Mild lumbar tenderness and right hip tenderness. Painless internal and external rotation of the right hip.) - Neuro Neuro: Alert and oriented X 3, No motor deficit, No sensory deficit, Normal speech Results - Vitals Vitals: Vital Signs - 24 hr 08/19/20 08/19/20 08/19/20 09:30 13:32 15:41 Temperature 36.1 C L 36 C L 37 C Heart Rate 72 70 71 Respiratory 18 18 18 Rate Blood Pressure 142/74 H 133/77 H 175/84 H O2 Saturation 95 99 94 08/19/20 17:30 Temperature 37 C Heart Rate 85 Respiratory 18 Rate Blood Pressure 143/73 H O2 Saturation 94 Oxygen O2 Source Room air - Labs Labs: Laboratory Tests 08/19/20 08/19/20 08/19/20 10:20 10:20 13:14 WBC 8.2 RBC 2.89 L Hgb 9.6 L Hct 28.7 L MCV 99.3 H MCH 33.2 H MCHC 33.4 RDW 12.1 Plt Count 198 MPV 9.1 Neut # (Auto) 7.1 H Lymph # (Auto) 0.6 L [place] # (Auto) 0.3 Eos # (Auto) 0.1 Baso # (Auto) 0.0 Absolute Nucleated RBC 0.00 Nucleated RBC % 0.0 Sodium 128 L Potassium 4.2 Chloride 96 L Carbon Dioxide 21 Anion Gap 11.0 BUN 27 H Creatinine 0.8 Estimated GFR (MDRD) 69 L Glucose 114 H Calcium 9.3 Total Bilirubin 1.3 H AST 30 ALT 17 Alkaline Phosphatase 102 Total Protein 6.3 L Albumin 3.9 Globulin 2.4 Albumin/Globulin Ratio 1.6 Urine Color YELLOW Urine Clarity CLEAR Urine pH 6.0 Ur Specific [place] 1.010 Urine Protein NEGATIVE Urine Glucose (UA) NEGATIVE Urine Ketones NEGATIVE Urine Occult Blood NEGATIVE Urine Nitrite NEGATIVE Urine Bilirubin NEGATIVE Urine Urobilinogen 0.2 (NORMAL) Ur Leukocyte Esterase NEGATIVE Ur Microscopic Review NOT INDICATED Urine Culture Comments NOT INDICATED Nasal Adenovirus (PCR) Nasal B. parapertussis DNA (PCR) Nasal Coronavir 229E PCR Nasal Coronavir HKU1 PCR Nasal Coronavir NL63 PCR Nasal Coronavir OC43 PCR Nasal Enterovir/Rhinovir PCR Nasal Influenza B PCR Nasal Influenza A PCR Nasal Parainfluen 1 PCR Nasal Parainfluen 2 PCR Nasal Parainfluen 3 PCR Nasal Parainfluen 4 PCR Nasal RSV (PCR) Nasal B.pertussis DNA PCR Nasal C.pneumoniae (PCR) Jesse Human Metapneumo PCR Nasal M.pneumoniae (PCR) Nasal SARS-CoV-2 (PCR) 08/19/20 15:05 WBC RBC Hgb Hct MCV MCH MCHC RDW Plt Count MPV Neut # (Auto) Lymph # (Auto) [place] # (Auto) Eos # (Auto) Baso # (Auto) Absolute Nucleated RBC Nucleated RBC % Sodium Potassium Chloride Carbon Dioxide Anion Gap BUN Creatinine Estimated GFR (MDRD) Glucose Calcium Total Bilirubin AST ALT Alkaline Phosphatase Total Protein Albumin Globulin Albumin/Globulin Ratio Urine Color Urine Clarity Urine pH Ur Specific [place] Urine Protein Urine Glucose (UA) Urine Ketones Urine Occult Blood Urine Nitrite Urine Bilirubin Urine Urobilinogen Ur Leukocyte Esterase Ur Microscopic Review Urine Culture Comments Nasal Adenovirus (PCR) NOT DETECTED Nasal B. parapertussis DNA (PCR) NOT DETECTED Nasal Coronavir 229E PCR NOT DETECTED Nasal Coronavir HKU1 PCR NOT DETECTED Nasal Coronavir NL63 PCR NOT DETECTED Nasal Coronavir OC43 PCR NOT DETECTED Nasal Enterovir/Rhinovir PCR NOT DETECTED Nasal Influenza B PCR NOT DETECTED Nasal Influenza A PCR NOT DETECTED Nasal Parainfluen 1 PCR NOT DETECTED Nasal Parainfluen 2 PCR NOT DETECTED Nasal Parainfluen 3 PCR NOT DETECTED Nasal Parainfluen 4 PCR NOT DETECTED Nasal RSV (PCR) NOT DETECTED Nasal B.pertussis DNA PCR NOT DETECTED Nasal C.pneumoniae (PCR) NOT DETECTED Jesse Human Metapneumo PCR NOT DETECTED Nasal M.pneumoniae (PCR) NOT DETECTED Nasal SARS-CoV-2 (PCR) NOT DETECTED - Rads (name of study) R hip xr Radiology: EMP read contemporaneously (NAD) CT L spine Radiology: EMP read contemporaneously (multilevel DDD and NF stenosis) PD MEDICAL DECISION MAKING - ED course ED course: 80-year-old woman with mechanical low pain. She is confused and lives alone. She is quite dehydrated here, with significant prerenal azotemia and hemoconcentration compared to her baseline. Her sodium is also down a bit. I asked the social director to see her to talk about a respite stay. I did present the case to Dr. Rolle querying the criteria of admission, but we do not feel there is any. SW and Pt agreeable to respite assisted living, but won't be available til at least tomorrow (Thursday); she will board in the ED pending safe dispo. Departure - Departure Clinical Impression: Dehydration, Confusion Low back pain Qualifiers: Chronicity: acute Back pain laterality: bilateral Sciatica presence: without sciatica Qualified Code(s): M54.5 - Low back pain Condition: Stable
--- NOTE | 2020-08-19 10:24 | XRAY Report ---
PROCEDURE: Hip w/Pelvis 2-3V RT INDICATIONS: fall hip pain TECHNIQUE: AP pelvis with lateral view(s) of the bilateral hip(s). COMPARISON: Plain films dated 08/17/2020 and 07/12/2020. FINDINGS: Bones: No fractures or dislocations. Pelvic ring appears intact. No suspicious bony lesions. ORIF of the right proximal femur. Previously seen proximal femoral fracture line is not significantly danilo nged. Soft tissues: The visualized bowel gas pattern is normal. No suspicious soft tissue calcifications. IMPRESSION: Stable postsurgical sequelae. Reviewed by: Malina Elmore MD on 08/19/2020 9:23 AM [place] Approved by: Malina Elmore MD on 08/19/2020 9:23 AM [facility] Station ID: [id number]
[2020-08-19 10:25] LABS: BASOPHILS % (AUTO) 0.4 %; EOSINOPHILS # (AUTO) 0.1 10^3/uL (0.0-0.7); HCT - HEMATOCRIT 28.7 % (37.0-47.0); HGB - HEMOGLOBIN 9.6 g/dL (12.0-16.0); LYMPHOCYTES # (AUTO) 0.6 10^3/uL (1.5-3.5); LYMPHOCYTES % (AUTO) 7.6 %; MEAN CORPUSCULAR HEMOGLOBIN 33.2 pg (27.0-31.0); MEAN CORPUSCULAR HGB CONC 33.4 g/dL (32.0-36.0); MEAN CORPUSCULAR VOLUME 99.3 fL (81.0-99.0); MEAN PLATELET VOLUME 9.1 fL (7.9-10.8); MONOCYTES # (AUTO) 0.3 10^3/uL (0.0-1.0); NEUTROPHILS # (AUTO) 7.1 10^3/uL (1.5-6.6); NEUTROPHILS % (AUTO) 86.5 %; PLT - PLATELET COUNT 198 10^3/uL (130-450); RED BLOOD COUNT 2.89 10^6/uL (4.20-5.40); RED CELL DISTRIBUTION WIDTH 12.1 % (12.0-15.0); WHITE BLOOD COUNT 8.2 x10^3/uL (4.8-10.8)
--- NOTE | 2020-08-19 10:28 | CT Report ---
PROCEDURE: LUMBAR SPINE WO INDICATIONS: fall, back injury TECHNIQUE: Noncontrast 3 mm thick sections acquired from the T12 level to the sacrum. Sagittal and coronal refo rmats were constructed. For radiation dose reduction, the following was used: automated exposure co ntrol, adjustment of mA and/or kV according to patient size. COMPARISON: Plain films dated 08/17/2020 FINDINGS: Image quality: Excellent. Bones: There is normal bony alignment. No acute vertebral body compression fractures. No suspiciou s lytic or blastic bony lesions. Central spinal caliber is of normal overall caliber. No pars defec ts. There is mild chronic appearing wedging of T11. There is multilevel degenerative disc and facet disease, causing mild multilevel canal stenoses. Multilevel foraminal stenoses are present, worst at L3-L4 and L4-L5 where there are moderate foraminal stenoses. Soft tissues: No retroperitoneal masses or hematomas. Visualized aorta is normal in caliber. IMPRESSION: . 1. Mild chronic appearing T11 compression fracture. No evidence of acute fracture. 2. Multilevel degenerative disc and facet disease causing multilevel canal and foraminal stenoses; fu rther assessment with MRI is recommended. Reviewed by: Malina Elmore MD on 08/19/2020 9:27 AM [facility] Approved by: Malina Elmore MD on 08/19/2020 9:27 AM [facility] Station ID: [id number]
[2020-08-19 10:39] LABS: ALBUMIN 3.9 g/dL (3.2-5.5); ALBUMIN/GLOBULIN RATIO 1.6 (1.0-2.2); BILIRUBIN,TOTAL 1.3 mg/dL (0.2-1.0); CALCIUM 9.3 mg/dL (8.5-10.3); CREATININE 0.8 mg/dL (0.4-1.0); POTASSIUM 4.2 mmol/L (3.5-5.0); TOTAL PROTEIN 6.3 g/dL (6.7-8.2)
[2020-08-19] MEDS ORDERED: SODIUM CHLORIDE 0.9% 1,000 ML IV STA ×2 (11:15→14:03)
--- NOTE | 2020-08-19 12:16 | CT Report ---
PROCEDURE: HEAD WO INDICATIONS: confusion TECHNIQUE: Noncontrast 4.5 mm thick angled axial sections acquired from the foramen magnum to the vertex. For r adiation dose reduction, the following was used: automated exposure control, adjustment of mA and/or kV according to patient size. COMPARISON: None. FINDINGS: Image quality: Excellent. CSF spaces: Basal cisterns are patent. No extra-axial fluid collections. Ventricles are normal in size and shape. Brain: No midline shift. No intracranial masses or hemorrhage. Garcia-white matter interface is norm al. Skull and face: Calvarium and visualized facial bones are intact, without suspicious lesions. Sinuses: Visualized sinuses and mastoids are clear. IMPRESSION: No acute intracranial abnormality. Volume loss and small vessel ischemic disease. Reviewed by: Malina Elmore MD on 08/19/2020 11:14 AM [facility] [[email or web address]] Approved by: Malina Elmore MD on 08/19/2020 11:14 AM [facility] [[email or web address]] Station ID: [id number]
[2020-08-19 13:42] LABS: BILIRUBIN,URINE NEGATIVE (NEGATIVE); GLUCOSE, URINE (UA) NEGATIVE (NEGATIVE); KETONES,URINE (UA) NEGATIVE (NEGATIVE); LEUKOCYTE ESTERASE, URINE NEGATIVE (NEGATIVE); NITRITE,URINE NEGATIVE (NEGATIVE); OCCULT BLOOD,URINE NEGATIVE (NEGATIVE); PROTEIN,URINE NEGATIVE (NEGATIVE); UROBILINOGEN,URINE 0.2 (NORMAL) E.U./dL (NORMAL)
[2020-08-19 13:43] LABS: CLARITY,URINE CLEAR (CLEAR)
[2020-08-19] MEDS ORDERED: ALENDRONATE 70 MG TABLET PO SCH (15:00)
[2020-08-19 16:26] LABS: B. PARAPERTUSSIS- RESP PCR PAN NOT DETECTED; B. PERTUSSIS- RESP PCR PANEL NOT DETECTED; C. PNEUMONIAE- RESP PCR PANEL NOT DETECTED; CORONAVIRUS 229E-RESP PCR NOT DETECTED; CORONAVIRUS HKU1-RESP PCR NOT DETECTED; CORONAVIRUS NL63-RESP PCR NOT DETECTED; CORONAVIRUS OC43-RESP PCR NOT DETECTED; HUMAN METAPNEUMOVIRUS NOT DETECTED; INFLUENZA A- RESP PCR PANEL NOT DETECTED; INFLUENZA B - RESP PCR PANEL NOT DETECTED; M. PNEUMONIAE- RESP PCR PANEL NOT DETECTED; PARAINFLUENZA VIRUS 1 NOT DETECTED; PARAINFLUENZA VIRUS 2 NOT DETECTED; PARAINFLUENZA VIRUS 3 NOT DETECTED; PARAINFLUENZA VIRUS 4 NOT DETECTED; RHINOVIRUS/ENTEROVIRUS NOT DETECTED; RSV- RESP PCR PANEL NOT DETECTED; SARS-CoV-2 -RESP PCR PANEL NOT DETECTED
[2020-08-19] MEDS: HYDROcod/ACETAM 5/325 MG TABLET PO PRN ×2 (17:32→23:08)
[2020-08-20 03:52] LABS: BILIRUBIN,URINE NEGATIVE (NEGATIVE); CLARITY,URINE CLEAR (CLEAR); GLUCOSE, URINE (UA) NEGATIVE (NEGATIVE); KETONES,URINE (UA) TRACE mg/dL (NEGATIVE); LEUKOCYTE ESTERASE, URINE NEGATIVE (NEGATIVE); NITRITE,URINE NEGATIVE (NEGATIVE); OCCULT BLOOD,URINE TRACE-INTA (NEGATIVE); PROTEIN,URINE NEGATIVE (NEGATIVE); UROBILINOGEN,URINE 0.2 (NORMAL) E.U./dL (NORMAL)
[2020-08-20] MEDS ORDERED: LEVOTHYROXINE 88 MCG TABLET PO SCH (07:00)
[2020-08-20 08:24] LABS: ALBUMIN 3.2 g/dL (3.2-5.5); ALBUMIN/GLOBULIN RATIO 1.2 (1.0-2.2); BILIRUBIN,TOTAL 0.9 mg/dL (0.2-1.0); CREATININE 0.7 mg/dL (0.4-1.0); POTASSIUM 3.7 mmol/L (3.5-5.0); TOTAL PROTEIN 5.9 g/dL (6.7-8.2)
[2020-08-20] MEDS: HYDROcod/ACETAM 5/325 MG TABLET PO PRN ×2 (08:30→16:30)
[2020-08-20] MEDS ORDERED: PANTOPRAZOLE 40 MG TABLET PO SCH (09:00)
[2020-08-20] MEDS ORDERED: LOSARTAN 50 MG TABLET PO SCH (09:00)
[2020-08-20] MEDS ORDERED: CHOLECALCIFEROL 400 UNIT TABLET PO SCH (09:00)
[2020-08-20 13:47] VITALS: BP 158/83
--- NOTE | 2020-08-20 15:41 | ED Physician Documentation ---
ED Addendum - Addendum Addendum: 08/20/20 15:40 She complained minimally back pain overnight. She did develop urinary retention and required a Myrick catheter. She actually ended up taking the Myrick catheter out and it was replaced. Social work saw her and also spoke with the family by phone. There was talk of her going to a long term but it was cost prohibitive. Social work arranged for her to go to [facility] for respite care. The following orders were written by me: Unrestricted diet, encourage fluids May ambulate with walker Myrick Catheter [facility] for myrick PCP followup in 1 week Urology followup in 1 week Current Med List: Alendronate 70mg PO once a week Cholecalciferol 800mg PO daily Hydrocodone/APA 5/325 1 tab PO q6h PRN pain Levothyroxine 88 micrograms PO daily Losartan 100mg po daily Lexapro 5mg PO daily Disposition: Discharged to [facility] Condition: Stable
[2020-08-24] MEDS ORDERED: ALENDRONATE 70 MG TABLET PO SCH (06:30)
== END 2020-08-20 16:45 | disposition home or self-care (01) ==
LOC: EDUNIT# → ED 09:25
DX: E86.0 Dehydration (principal); M54.5 Low back pain; R41.0 Disorientation, unspecified; I10 Essential (primary) hypertension; R33.9 Retention of urine, unspecified; Z20.822 Contact with and (suspected) exposure to COVID-19
CPT/HCPCS: 36415; 51702; 70450; 72131; 73502; 80053; 81003; 85025; 87631; 96360; 96361; 99283; 99284; A9270; 0202U; 81001; 87086

== ENCOUNTER 2020-08-20 16:41 | Outpatient (CLI) | payer MEDICARE, OTHER | END 2020-08-20 16:42 | disposition home or self-care (01) | LOC: EMS 16:41 | PROVIDERS: ATTEND Emergency Medicine | DX: M54.5 Low back pain (principal); R41.0 Disorientation, unspecified | CPT/HCPCS: A0425; A0428 ==

== ENCOUNTER 2020-08-20 20:08 | Outpatient (CLI) | payer MEDICARE, OTHER | END 2020-08-20 23:59 | disposition critical access hospital (66) | LOC: EMS 20:08 | PROVIDERS: ATTEND Emergency Medicine | DX: T85.9XXA Unspecified complication of internal prosthetic device, implant and graft, initial encounter (principal); M54.5 Low back pain | CPT/HCPCS: A0425; A0429 ==

== ENCOUNTER 2020-08-20 20:32 | Emergency (ER) | payer MEDICARE, OTHER ==
[2020-08-20 20:42] VITALS: BP 171/95
--- NOTE | 2020-08-20 21:17 | ED Physician Documentation ---
History of Present Illness - Stated complaint Stated Complaint: PULLED CATH OUT - Chief complaint Chief Complaint: General - History obtained from History obtained from: Patient, Family (daughter by phone), EMS - Additonal information Additional information: This 80-year-old woman had an extended stay in the emergency department and left earlier today to Chemo. See prior notes.. She came back tonight because she pulled out the catheter. She remembers pulling out the catheter, she says her back was hurting so much that she felt like pulling out her catheter. They sent her back for potential replacement of the catheter. She actually seems much more lucid now having not been on as much hydrocodone. 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 Derm: Other - Present Medications Home Medications: Ambulatory Orders Medication Instructions Recorded Confirmed Escitalopram Oxalate [Lexapro] 5 mg PO DAILY 03/26/20 08/19/20 Losartan Potassium 100 mg PO DAILY 03/26/20 08/19/20 Omeprazole 40 mg PO DAILY 03/26/20 08/19/20 Alendronate [Fosamax] 70 mg PO Q7D #4 tablet 04/01/20 08/19/20 Calcium Carbonate [Tums (Calcium 500 mg PO BID@1000,2200 #60 tablet 04/01/20 08/19/20 Carbonate 500mg)] Cholecalciferol [Vitamin D3] 800 unit PO DAILY #30 tablet 04/01/20 08/19/20 Levothyroxine [Synthroid] 88 mcg PO QDAC #30 tablet 04/01/20 08/19/20 Cyclobenzaprine [Flexeril] 10 mg PO TID PRN #20 tab 08/17/20 08/19/20 HYDROcod/ACETAM 5/325 [[place] 5/325] 1 - 2 ea PO Q6H PRN #15 tab 08/17/20 08/19/20 HYDROcod/ACETAM 5/325 [[place] 5/325] 1 - 2 tab PO Q6H PRN #20 tab 08/20/20 - Allergies Allergies/Adverse Reactions: Allergies Allergy/AdvReac Type Severity Reaction Status Date / Time erythromycin base Allergy Mild Nausea Verified 08/19/20 09:33 Penicillins Allergy Mild Rash Verified 08/19/20 09:33 clindamycin Allergy Rash Verified 08/19/20 09:33 adhesive tape AdvReac Mild Hives Verified 08/19/20 09:33 - Social History Does the pt smoke?: No Smoking Status: Never smoker Does the pt drink ETOH?: Yes Does the pt have substance abuse?: No - Immunizations Immunizations are current?: Yes PD ED PE NORMAL - Vitals Vital signs reviewed: Yes - General General: Other (Is alert and oriented to person and place and date with prompting but is somewhat confused short-term events.) - Abdomen Abdomen: Soft, Non tender - Back Back: No CVA TTP, No spinal TTP - Derm Derm: Normal color, Warm and dry Results - Vitals Vitals: Vital Signs - 24 hr 08/20/20 20:38 Temperature 37.0 C Heart Rate 73 Respiratory 18 Rate Blood Pressure 171/95 H O2 Saturation 90 L Oxygen O2 Source Room air PD MEDICAL DECISION MAKING - ED course ED course: I had an extensive conversation with her daughter by phone. We decided to leave the catheter out. The acuity of the urinary retention was not clear, this could be a chronic phenomenon, or related to the hydrocodone. Daughter asked that we stop the hydrocodone, she felt that that was causing most of her acute memory issues. In lieu we will do Lidoderm patch and Tylenol. Departure - Departure Disposition: 01 Home, Self Care Clinical Impression: Urinary retention with incomplete bladder emptying Dementia Qualifiers: Dementia type: unspecified type Dementia behavioral disturbance: with behav ioral disturbance Qualified Code(s): F03.91 - Unspecified dementia with behavioral disturbance Condition: Stable Record reviewed to determine appropriate education?: Yes Instructions: ED Dementia Caregiver Support Comments: Discontinue hydrocodone. She can start tylenol 650mg every 6 hours as needed for pain Also she can have Lidoderm patch topical to back pain once daily Follow instructions otherwise from earlier in the day. Does not need myrick care now. Still needs to followup with her pcp and urology. Jean Carlos Thomas MD
[2020-08-20] MEDS ORDERED: LIDOCAINE PATCH 5% TOP STA (21:30)
[2020-08-20] MEDS ORDERED: ACETAMINOPHEN 325 MG TABLET PO STA (21:30)
== END 2020-08-20 22:00 | disposition home or self-care (01) ==
LOC: EDUNIT# → ED 20:32
DX: T83.028A Displacement of other urinary catheter, initial encounter (principal); R33.8 Other retention of urine; F03.91 Unspecified dementia, unspecified severity, with behavioral disturbance; M25.551 Pain in right hip; M54.5 Low back pain; E86.0 Dehydration; R41.0 Disorientation, unspecified; I10 Essential (primary) hypertension; R33.9 Retention of urine, unspecified; Z20.822 Contact with and (suspected) exposure to COVID-19
CPT/HCPCS: 99283; A9270

== ENCOUNTER 2020-08-20 21:57 | Outpatient (CLI) | payer MEDICARE, OTHER | END 2020-08-20 23:59 | disposition home or self-care (01) | LOC: EMS 21:57 | PROVIDERS: ATTEND Emergency Medicine | DX: F03.90 Unspecified dementia, unspecified severity, without behavioral disturbance, psychotic disturbance, mood disturbance, and anxiety (principal) | CPT/HCPCS: A0425; A0428 ==

== ENCOUNTER 2020-08-21 19:32 | Outpatient (CLI) | payer MEDICARE, OTHER | END 2020-08-21 19:33 | disposition critical access hospital (66) | LOC: EMS 19:32 | PROVIDERS: ATTEND Emergency Medicine | DX: R33.9 Retention of urine, unspecified (principal) | CPT/HCPCS: A0425; A0429 ==

== ENCOUNTER 2020-08-21 19:58 | Emergency (ER) | payer MEDICARE, OTHER ==
--- NOTE | 2020-08-21 20:11 | ED Physician Documentation ---
PD HPI FEMALE - Stated complaint Stated Complaint: FEMALE - Chief complaint Chief Complaint: General - History obtained from History obtained from: Patient - History of Present Illness Timing - onset: How many days ago (has been having problems with urinary retention and had myrick in but pulled it out. Seen in ER and decision with daughter to not have it in. She was complaining of urinary discomfort and sent from [place] again for eval of needing myrick. Seems possible the providers had not shared info there?) Timing - details: Gradual onset, Waxing and waning Associated symptoms: Dysuria, Other (some urinary incontinence small amounts at a time) Recently seen: Emergency Dept Review of Systems Constitutional: denies: Fever, Chills GI: denies: Abdominal Pain, Vomiting, Constipation, Diarrhea : reports: Dysuria, Incontinent. 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 Derm: Other - Present Medications Home Medications: Ambulatory Orders Medication Instructions Recorded Confirmed Escitalopram Oxalate [Lexapro] 5 mg PO DAILY 03/26/20 08/19/20 Losartan Potassium 100 mg PO DAILY 03/26/20 08/19/20 Omeprazole 40 mg PO DAILY 03/26/20 08/19/20 Alendronate [Fosamax] 70 mg PO Q7D #4 tablet 04/01/20 08/19/20 Calcium Carbonate [Tums (Calcium 500 mg PO BID@1000,2200 #60 tablet 04/01/20 08/19/20 Carbonate 500mg)] Cholecalciferol [Vitamin D3] 800 unit PO DAILY #30 tablet 04/01/20 08/19/20 Levothyroxine [Synthroid] 88 mcg PO QDAC #30 tablet 04/01/20 08/19/20 Cyclobenzaprine [Flexeril] 10 mg PO TID PRN #20 tab 08/17/20 08/19/20 HYDROcod/ACETAM 5/325 [[place] 5/325] 1 - 2 ea PO Q6H PRN #15 tab 08/17/20 08/19/20 HYDROcod/ACETAM 5/325 [[place] 5/325] 1 - 2 tab PO Q6H PRN #20 tab 08/20/20 Phenazopyridine [Pyridium] 100 mg PO BID #15 tablet 08/21/20 - Allergies Allergies/Adverse Reactions: Allergies Allergy/AdvReac Type Severity Reaction Status Date / Time erythromycin base Allergy Mild Nausea Verified 08/21/20 20:07 Penicillins Allergy Mild Rash Verified 08/21/20 20:07 clindamycin Allergy Rash Verified 08/21/20 20:07 adhesive tape AdvReac Mild Hives Verified 08/21/20 20:07 - Social History Does the pt smoke?: No Smoking Status: Never smoker Does the pt drink ETOH?: Yes Does the pt have substance abuse?: No - Immunizations Immunizations are current?: Yes PD ED PE NORMAL - Vitals Vital signs reviewed: Yes - General General: No acute distress, Well developed/nourished - Abdomen Abdomen: Soft, Non tender, Non distended - Back Back: No CVA TTP Results - Vitals Vitals: Vital Signs - 24 hr 08/21/20 08/21/20 20:03 20:12 Temperature 36.3 C L Heart Rate 85 58 L Respiratory 16 18 Rate Blood Pressure 155/90 H 159/94 H O2 Saturation 94 92 Oxygen O2 Source Room air PD MEDICAL DECISION MAKING - ED course Complexity details: reviewed old records (here yesterday and note reflects conversation of ERMD with daughter and decision to not have ongoing myrick as pt pulls them out. Can get bladder scan to ensure not too much urine retained. Consider in and out cath if alot. ), reviewed results (bladder scan showing about 80-107 on several readys I did myself along with her nurse. Pt seems to be having some incontinence and is emptying reasonably. Presume some inflammatory cystitis since UA was normal just yesterday. NSAIDs would not be suggested at her age. Can use pyridium. ), considered differential, d/w patient Departure - Departure Disposition: 01 Home, Self Care Clinical Impression: Dysuria Condition: Stable Record reviewed to determine appropriate education?: Yes Instructions: ED Dysuria Uncertain Cause Follow-Up: Philomena Brewer MD [Primary Care Provider] - Prescriptions: Phenazopyridine [Pyridium] 100 mg PO BID #15 tablet Comments: The bladder scanner here did not show a significant amount of retained urine so the small amount of leakage she is having seems sufficient. We can use phenazopyridine twice daily for the next week if there is some irritation at the bladder outlet. The urine test from yesterday did not show signs of infection. Discharge Date/Time: 08/21/20 22:30
[2020-08-21 20:13] VITALS: BP 159/94
[2020-08-21] MEDS ORDERED: PHENAZOPYRIDINE 100 MG TABLET PO STA (20:54)
== END 2020-08-21 22:30 | disposition home or self-care (01) ==
LOC: EDUNIT# → ED 19:58 → SUPCPDRO 19:58 → ED 22:30
DX: R30.0 Dysuria (principal); I10 Essential (primary) hypertension
CPT/HCPCS: 51798; 99282; 99283; A9270

== ENCOUNTER 2020-08-29 04:32 | Outpatient (CLI) | payer MEDICARE, OTHER | END 2020-08-29 04:33 | disposition EMS.NT | LOC: EMS 04:32 | DX: M79.604 Pain in right leg (principal) ==

== ENCOUNTER 2020-11-20 13:05 | Outpatient (CLI) | payer MEDICARE, OTHER ==
--- NOTE | 2020-11-20 15:13 | MRI Report ---
PROCEDURE: Brain W/O INDICATIONS: COMPLAINTS OF MEMORY DISTURBANCE TECHNIQUE: Noncontrast axial T1 spin echo, axial T2 fast spin echo, sagittal and axial FLAIR, coronal T2 fast sp in echo, axial gradient echo, axial diffusion and ADC through the brain. COMPARISON: None. FINDINGS: Image quality: Excellent. CSF Spaces: Basal cisterns are patent. No extra-axial fluid collections. Ventricles are normal in size and shape. Brain: No intracranial masses or hemorrhage. Garcia/white matter interface is normal. There is moder ate diffuse cervical volume loss. There is a moderate degree of patchy high FLAIR signal within the p eriventricular and subcortical white matter. Brainstem appears normal. Diffusion-weighted images dem onstrate no acute ischemic insult. No chronic ischemic insults. Normal intravascular flow voids are present. Skull and face: Calvarium has normal marrow signal. Orbits appear normal. Sinuses: Sinuses and mastoids are clear. IMPRESSION: 1. Volume loss and small vessel ischemic disease. 2. No acute process. No recent infarct. Reviewed by: Malina Elmore MD on 11/20/2020 3:11 PM PDT Approved by: Malina Elmore MD on 11/20/2020 3:11 PM PDT Station ID: [id number]
== END 2020-11-20 13:06 | disposition home or self-care (01) ==
LOC: DI 13:05
PROVIDERS: ATTEND Psychiatry & Neurology Neurology
DX: R41.3 Other amnesia (principal); I67.2 Cerebral atherosclerosis

== ENCOUNTER 2021-01-01 08:00 | Outpatient (CLI) | payer MEDICARE, OTHER ==
--- NOTE | 2021-01-01 15:54 | XRAY Report ---
PROCEDURE: Hip w/Pelvis 1V RT INDICATIONS: DISPLACED INTERTROCHANTERIC FX OF R FEMUR TECHNIQUE: AP pelvis with lateral view(s) of the bilateral hip(s). COMPARISON: 08/19/2020 and 05/24/2020. FINDINGS: Bones: Postsurgical changes compatible with coronary of of intertrochanteric right femur fracture no sandeep. Intramedullary walker in diameter compression screws are stable compared to the prior exam. Fractur e lucency not significantly changed compared to prior exams. Fracture fragments remain in near-anatom ic alignment. Pelvic ring appears intact. No suspicious bony lesions. Soft tissues: The visualized bowel gas pattern is normal. No suspicious soft tissue calcifications. IMPRESSION: Stable sequela of intertrochanteric fracture ORIF with persistent fracture lucency. Reviewed by: Noemi Alex MD, PhD on 01/01/2021 3:52 PM PDT Approved by: Noemi Alex MD, PhD on 01/01/2021 3:52 PM PDT Station ID: [id number]
== END 2021-01-01 23:59 | disposition home or self-care (01) ==
LOC: DI.N 08:00
PROVIDERS: ATTEND Orthopaedic Surgery
DX: S72.141D Displaced intertrochanteric fracture of right femur, subsequent encounter for closed fracture with routine healing (principal)

== ENCOUNTER 2021-03-01 09:43 | Outpatient (CLI) | payer MEDICARE, OTHER ==
[2021-03-01 15:45] LABS: THYROID STIMULATING HORMONE 6.45 uIU/mL (0.34-5.60)
[2021-03-01 15:47] LABS: FREE T4 (FREE THYROXINE) 0.99 ng/dL (0.58-1.64)
== END 2021-03-01 09:44 | disposition home or self-care (01) ==
LOC: LAB.S 09:43
PROVIDERS: ATTEND Internal Medicine
DX: E03.9 Hypothyroidism, unspecified (principal)
CPT/HCPCS: 36415; 84439; 84443

== ENCOUNTER 2021-05-28 09:57 | Outpatient (CLI) | payer MEDICARE, OTHER ==
--- NOTE | 2021-05-28 12:56 | XRAY Report ---
PROCEDURE: Femur 2V RT INDICATIONS: DISPLACED INTERTROCHANTERIC FX OF RIGHT FEMUR TECHNIQUE: 2 views of the femur were acquired. COMPARISON: None. FINDINGS: Bones: No fractures or dislocations. Surgical hardware in proximal femoral shaft is seen without pranav ss loosening or failure. No suspicious bony lesions. Soft tissues: No suspicious soft tissue calcifications or masses. IMPRESSION: No fracture or dislocation is seen in visualized portion of mid to distal right femur. Right knee kimani nt osteoarthritis. No suspicious intraosseous lesion. Reviewed by: Jose Mclaughlin MD on 05/28/2021 12:54 PM PST Approved by: Jose Mclaughlin MD on 05/28/2021 12:54 PM PST Station ID: [id number]
--- NOTE | 2021-05-28 12:57 | XRAY Report ---
PROCEDURE: Hip w/Pelvis 1V RT INDICATIONS: DISPLACED INTERTROCANTERIC FX OF RIGHT FEMUR TECHNIQUE: AP pelvis with lateral view(s) of the right hip(s). COMPARISON: None. FINDINGS: Bones: Post-ORIF changes are seen in proximal right femur with surgical hardware in place. No evidenc e of hardware loosening or failure. Healed proximal femoral shaft fracture is seen. Mild to moderate right hip joint osteoarthritic changes are noted. No evidence of avascular necrosis of femoral head. Pelvic ring appears intact. No suspicious bony lesions. Soft tissues: The visualized bowel gas pattern is normal. No suspicious soft tissue calcifications. IMPRESSION: Prior ORIF of right femur with healed proximal femoral shaft fracture. No gross hardware loosening or failure. No acute fracture or dislocation. Right hip joint osteoarthritis without eviden ce of avascular necrosis. Reviewed by: Jose Mclaughlin MD on 05/28/2021 12:55 PM PST Approved by: Jose Mclaughlin MD on 05/28/2021 12:55 PM PST Station ID: [id number]
== END 2021-05-28 23:59 ==
LOC: DI.N 09:57
PROVIDERS: ATTEND Orthopaedic Surgery
DX: S72.141D Displaced intertrochanteric fracture of right femur, subsequent encounter for closed fracture with routine healing (principal); M16.11 Unilateral primary osteoarthritis, right hip; M17.11 Unilateral primary osteoarthritis, right knee

== ENCOUNTER 2021-08-11 03:22 | Outpatient (CLI) | payer MEDICARE, OTHER | END 2021-08-11 03:23 | disposition critical access hospital (66) | LOC: EMS 03:22 | DX: R10.9 Unspecified abdominal pain (principal); R11.0 Nausea | CPT/HCPCS: A0425; A0427 ==

== ENCOUNTER 2021-08-11 03:50 | Emergency (ER) | payer MEDICARE, OTHER ==
[2021-08-11] MEDS ORDERED: SODIUM CHLORIDE 0.9% 500 ML IV STA (04:05)
--- NOTE | 2021-08-11 04:08 | ED Physician Documentation ---
History of Present Illness - Stated complaint Stated Complaint: ABD PAIN - Chief complaint Chief Complaint: Abd Pain - History obtained from History obtained from: Patient - Additonal information Additional information: 81yF bibems p/w 7-10 days of gradual onset intermittent diffuse, mild, abdominal discomfort that is nonradiating, worse when she hasn't eaten, a/w nausea but no vomiting, and loose stools. patient states she woke this am with persistent symptoms so called ems. denies fever/chills, urinary sx, back pain, cp, soa, lightheadedness. denies any abdominal surgeries. declining pain or nausea meds at present, stating she is not having any nausea, and the main pain she is having is chronic right hip pain related to an old fall. covid vaccinated and boosted. no known sick contacts. no recent antibiotic use or hospitalization. Review of Systems Ten Systems: 10 systems reviewed and negative Constitutional: denies: Fever, Chills Cardiac: denies: Chest pain / pressure Respiratory: denies: Dyspnea GI: reports: Abdominal Pain, Nausea, Diarrhea. 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 Derm: Other - Present Medications Home Medications: Ambulatory Orders Medication Instructions Recorded Confirmed Losartan Potassium 100 mg PO DAILY 03/26/20 08/11/21 Omeprazole 40 mg PO DAILY 03/26/20 08/11/21 Alendronate [Fosamax] 70 mg PO Q7D #4 tablet 04/01/20 08/11/21 Calcium Carbonate [Tums (Calcium 500 mg PO BID@1000,2200 #60 tablet 04/01/20 08/11/21 Carbonate 500mg)] Cholecalciferol [Vitamin D3] 800 unit PO DAILY #30 tablet 04/01/20 08/11/21 Amlodipine Besylate [Norvasc] 2.5 mg PO DAILY 08/11/21 08/11/21 Levothyroxine [Synthroid] 100 mcg PO QDAC 08/11/21 08/11/21 - Allergies Allergies/Adverse Reactions: Allergies Allergy/AdvReac Type Severity Reaction Status Date / Time erythromycin base Allergy Mild Nausea Verified 08/11/21 04:00 Penicillins Allergy Mild Rash Verified 08/11/21 04:00 clindamycin Allergy Rash Verified 08/11/21 04:00 adhesive tape AdvReac Mild Hives Verified 08/11/21 04:00 - Social History Does the pt smoke?: No Smoking Status: Never smoker Does the pt drink ETOH?: Yes Does the pt have substance abuse?: No - Immunizations Immunizations are current?: Yes - POLST Patient has POLST: No PD ED PE NORMAL - Vitals Vital signs reviewed: Yes - General General: Alert and oriented X 3, No acute distress, Well developed/nourished - HEENT HEENT: Atraumatic, PERRL, EOMI - Neck Neck: Supple, no meningeal sign - Cardiac Cardiac: RRR - Respiratory Respiratory: No respiratory distress, Clear bilaterally - Abdomen Abdomen: Non tender, Non distended - Back Back: No CVA TTP - Derm Derm: Normal color, Warm and dry - Extremities Extremities: No edema - Neuro Neuro: Alert and oriented X 3, No motor deficit, No sensory deficit - Psych Psych: Normal mood, Normal affect Results - Vitals Vitals: Vital Signs - 24 hr 08/11/21 08/11/21 03:56 06:08 Temperature 36.7 C Heart Rate 73 54 L Respiratory 18 19 Rate Blood Pressure 139/99 H 161/81 H O2 Saturation 97 97 Oxygen O2 Source Room air - EKG (time done) 0355 Rate: Rate (enter#) (52) Rhythm: Sinus bradycardia Intervals: Other (short PA 77) Ischemia: Other (no STEMI) 0601 Rate: Rate (enter#) (53) Rhythm: NSR [place]: Other (LAFB) Intervals: Other (short PA 87) Ischemia: Other (0355) - Labs Labs: Laboratory Tests 08/11/21 08/11/21 08/11/21 04:11 04:11 04:18 WBC 4.7 L RBC 3.72 L Hgb 11.6 L Hct 34.5 L MCV 92.7 MCH 31.2 H MCHC 33.6 RDW 12.8 Plt Count 214 MPV 9.4 Neut # (Auto) 3.0 Lymph # (Auto) 1.1 L [place] # (Auto) 0.5 Eos # (Auto) 0.1 Baso # (Auto) 0.0 Absolute Nucleated RBC 0.00 Nucleated RBC % 0.0 Sodium 130 L Potassium 3.7 Chloride 96 L Carbon Dioxide 25 Anion Gap 9.0 BUN 14 Creatinine 1.0 Estimated GFR (MDRD) 53 L Glucose 99 Calcium 9.4 Total Bilirubin 0.8 AST 18 ALT 10 Alkaline Phosphatase 64 Total Protein 6.4 L Albumin 3.8 Globulin 2.6 Albumin/Globulin Ratio 1.5 Lipase 57 H Urine Color YELLOW Urine Clarity CLEAR Urine pH 8.0 H Ur Specific [place] 1.020 Urine Protein NEGATIVE Urine Glucose (UA) NEGATIVE Urine Ketones NEGATIVE Urine Occult Blood NEGATIVE Urine Nitrite NEGATIVE Urine Bilirubin NEGATIVE Urine Urobilinogen 0.2 (NORMAL) Ur Leukocyte Esterase NEGATIVE Ur Microscopic Review NOT INDICATED Urine Culture Comments NOT INDICATED PD MEDICAL DECISION MAKING - ED course ED course: 81yF p/w mild diffuse abd pain, nausea, and loose stools. patient was seen in [facility] and told she may be experiencing dietary changes since her normal caregivers are out of town. patient well appearing. will obtain labs, ct and reevaluate. Departure - Departure Disposition: 01 Home, Self Care Clinical Impression: Abdominal pain Condition: Stable Instructions: Abdominal Pain Comments: You are seen in the emergency department for abdominal pain and found abnormal lab work and CT scan. You do have a cyst on your left kidney and on your liver. These are incidental findings and do not require specific follow-up. Follow- up with your primary doctor in regards to your symptoms and return to the emergency department if you have any new or worsening symptoms or other concerns.Note that a Covid test was sent which will result in a couple days. You can call for the results. We will call you if the test comes back positive.
[2021-08-11 04:19] LABS: BASOPHILS % (AUTO) 0.6 %; EOSINOPHILS # (AUTO) 0.1 10^3/uL (0.0-0.7); HCT - HEMATOCRIT 34.5 % (37.0-47.0); HGB - HEMOGLOBIN 11.6 g/dL (12.0-16.0); LYMPHOCYTES # (AUTO) 1.1 10^3/uL (1.5-3.5); LYMPHOCYTES % (AUTO) 22.2 %; MEAN CORPUSCULAR HEMOGLOBIN 31.2 pg (27.0-31.0); MEAN CORPUSCULAR HGB CONC 33.6 g/dL (32.0-36.0); MEAN CORPUSCULAR VOLUME 92.7 fL (81.0-99.0); MEAN PLATELET VOLUME 9.4 fL (7.9-10.8); MONOCYTES # (AUTO) 0.5 10^3/uL (0.0-1.0); MONOCYTES % (AUTO) 10.5 %; NEUTROPHILS % (AUTO) 63.3 %; PLT - PLATELET COUNT 214 10^3/uL (130-450); RED BLOOD COUNT 3.72 10^6/uL (4.20-5.40); RED CELL DISTRIBUTION WIDTH 12.8 % (12.0-15.0); WHITE BLOOD COUNT 4.7 x10^3/uL (4.8-10.8)
[2021-08-11] MEDS ORDERED: IOVERSOL 320 100 ML VIAL IVP ONE ×2 (04:21→04:57)
[2021-08-11 04:25] LABS: BILIRUBIN,URINE NEGATIVE (NEGATIVE); GLUCOSE, URINE (UA) NEGATIVE (NEGATIVE); KETONES,URINE (UA) NEGATIVE (NEGATIVE); LEUKOCYTE ESTERASE, URINE NEGATIVE (NEGATIVE); NITRITE,URINE NEGATIVE (NEGATIVE); OCCULT BLOOD,URINE NEGATIVE (NEGATIVE); PROTEIN,URINE NEGATIVE (NEGATIVE); UROBILINOGEN,URINE 0.2 (NORMAL) E.U./dL (NORMAL)
[2021-08-11 04:26] LABS: CLARITY,URINE CLEAR (CLEAR)
[2021-08-11 04:28] LABS: ALBUMIN 3.8 g/dL (3.2-5.5); ALBUMIN/GLOBULIN RATIO 1.5 (1.0-2.2); BILIRUBIN,TOTAL 0.8 mg/dL (0.2-1.0); CALCIUM 9.4 mg/dL (8.5-10.3); POTASSIUM 3.7 mmol/L (3.5-5.0); TOTAL PROTEIN 6.4 g/dL (6.7-8.2)
[2021-08-11] MEDS ORDERED: ONDANSETRON 4 MG/2 ML VIAL IVP STA (05:39)
[2021-08-11] MEDS ORDERED: METOCLOPRAMIDE 10 MG/2 ML VIAL IVP STA (06:00)
[2021-08-11 06:52] VITALS: BP 130/65
--- NOTE | 2021-08-11 08:22 | CT Report ---
PROCEDURE: Abdomen/Pelvis W INDICATIONS: Abdominal pain, acute, nonlocalized CONTRAST: IV CONTRAST: Optiray 320 ml: 100 PO CONTRAST: *NO PO CONTRAST TECHNIQUE: After the administration of IV contrast, 5 mm thick sections acquired from the diaphragms to the symp hysis. 5 mm thick coronal and sagittal reformats were acquired. For radiation dose reduction, the f ollowing was used: automated exposure control, adjustment of mA and/or kV according to patient size. COMPARISON: Lumbar spine CT 08/11/2020, abdominal CT angiogram 12/22/2019. Correlation is also made wit h abdominal ultrasound, 08/12/2018. FINDINGS: Image quality: There is artifact associated with the metallic hardware. ABDOMEN: Lung bases: Mild areas of subpleural atelectasis can be seen at the lung bases, without suspicious no dules. Heart size is normal. Solid organs: Liver and spleen are normal in size and enhancement. Gallbladder wall does not appear thickened. Biliary system is non dilated. Pancreas enhances normally. No adrenal nodules. Kidn eys demonstrate normal size and enhancement, without hydronephrosis. Peritoneum and bowel: A normal appendix is seen. Within the terminal ileum, there is a hyperdense foc us seen without obstruction that measures up to 1.5 cm, which is attributed to a dense food item, as on series 6 image 20. Bowel loops demonstrate normal wall thickness and caliber. No free fluid or air. Nodes and vessels: No retroperitoneal or mesenteric adenopathy by size criteria. Aorta and inferior vena cava are normal in size. Atherosclerotic calcification is seen. The SMA is patent. No portal v ein abnormality is seen. Miscellaneous: No ventral hernias. PELVIS: Genitourinary: Bladder wall thickness is normal. This patient is status post hysterectomy. No adnex al masses can be seen. Miscellaneous: No inguinal hernias or adenopathy. Bones: No suspicious bony lesions. No acute appearing vertebral body compression fractures. A collection specialist cassi T11 anterior wedge deformity is again seen. Proximal right femur hardware is seen. Age-appropriat e degenerative changes are seen. Mild levoconvex scoliotic curvature is seen. IMPRESSION: No imaging explanation is found for the patient's presenting symptoms. No dilated loops of bowel are seen. Normal appendix. No ascites or free air can be seen. No acute vascular abnormality is seen. Incidental note is made of: Chronic T11 fracture Hysterectomy Proximal right femur hardware Note: No significant discrepancy from the preliminary report. Reviewed by: Roney Pierre MD on 08/11/2021 7:21 AM [facility] Approved by: Roney Pierre MD on 08/11/2021 7:21 AM [facility] Station ID: [id number]
== END 2021-08-11 06:51 | disposition home or self-care (01) ==
LOC: EDUNIT# → EDBD → ED 03:50 → SUPCPDRO 03:50 → ED 06:51
DX: R10.9 Unspecified abdominal pain (principal); R11.0 Nausea; R19.7 Diarrhea, unspecified; N28.1 Cyst of kidney, acquired
CPT/HCPCS: 36415; 74177; 80053; 81003; 83690; 85025; 93005; 96374; 99282; 99284; Q9967; U0004; 81001; 87086

== ENCOUNTER 2021-08-23 08:00 | Outpatient (CLI) | payer MEDICARE, OTHER | END 2021-08-23 23:59 | disposition home or self-care (01) | LOC: LAB.R 08:00 | PROVIDERS: ATTEND Internal Medicine | DX: F41.9 Anxiety disorder, unspecified (principal); E03.9 Hypothyroidism, unspecified; G31.84 Mild cognitive impairment of uncertain or unknown etiology | CPT/HCPCS: 84443 ==

== ENCOUNTER 2021-11-14 12:29 | Outpatient (CLI) | payer MEDICARE, OTHER | END 2021-11-14 12:30 | disposition home or self-care (01) | LOC: LAB.S 12:29 | PROVIDERS: ATTEND Internal Medicine | DX: E03.9 Hypothyroidism, unspecified (principal) | CPT/HCPCS: 36415; 84443 ==

== ENCOUNTER 2022-03-11 07:16 | Outpatient (CLI) | payer MEDICARE, OTHER ==
[2022-03-11 14:45] LABS: BASOPHILS % (AUTO) 0.5 %; EOSINOPHILS # (AUTO) 0.2 10^3/uL (0.0-0.7); EOSINOPHILS % (AUTO) 4.2 %; HCT - HEMATOCRIT 37.3 % (37.0-47.0); HGB - HEMOGLOBIN 12.1 g/dL (12.0-16.0); LYMPHOCYTES # (AUTO) 1.1 10^3/uL (1.5-3.5); LYMPHOCYTES % (AUTO) 24.9 %; MEAN CORPUSCULAR HEMOGLOBIN 31.1 pg (27.0-31.0); MEAN CORPUSCULAR HGB CONC 32.4 g/dL (32.0-36.0); MEAN CORPUSCULAR VOLUME 95.9 fL (81.0-99.0); MEAN PLATELET VOLUME 10.1 fL (7.9-10.8); MONOCYTES # (AUTO) 0.5 10^3/uL (0.0-1.0); NEUTROPHILS # (AUTO) 2.5 10^3/uL (1.5-6.6); NEUTROPHILS % (AUTO) 58.2 %; PLT - PLATELET COUNT 212 10^3/uL (130-450); RED BLOOD COUNT 3.89 10^6/uL (4.20-5.40); RED CELL DISTRIBUTION WIDTH 13.3 % (12.0-15.0); WHITE BLOOD COUNT 4.3 x10^3/uL (4.8-10.8)
[2022-03-11 15:20] LABS: % IRON SATURATION 30 % (20-50); ALBUMIN 4.1 g/dL (3.2-5.5); ALBUMIN/GLOBULIN RATIO 1.5 (1.0-2.2); ALKALINE PHOSPHATASE 62 IU/L (42-121); ALT ALANINE AMINOTRANSFERASE 14 IU/L (10-60); AST ASPARTATE AMINOTRANSFERASE 21 IU/L (10-42); BILIRUBIN,TOTAL 0.9 mg/dL (0.2-1.0); BUN - BLOOD UREA NITROGEN 22 mg/dL (6-20); CALCIUM 9.3 mg/dL (8.5-10.3); CARBON DIOXIDE - CO2 26 mmol/L (21-32); CHLORIDE 102 mmol/L (101-111); CHOL/HDL RATIO 3.7 (<4.4); CHOLESTEROL 237 mg/dL; GFR - MDRD 53 (>89); GLUCOSE 94 mg/dL (70-100); HDL CHOLESTEROL 64 mg/dL; IRON 111 ug/dL (28-170); LDL CHOLESTEROL,CALCULATED 158 mg/dL; LDL/HDL RATIO 2.5 (<4.4); POTASSIUM 4.3 mmol/L (3.5-5.0); SODIUM 136 mmol/L (135-145); TOTAL IRON BINDING CAPACITY 365 ug/dL (250-450); TOTAL PROTEIN 6.8 g/dL (6.7-8.2); TRANSFERRIN 261 mg/dL (192-382); TRIGLYCERIDES 75 mg/dL; VLDL CHOLESTEROL 15 mg/dL
[2022-03-11 15:25] LABS: THYROID STIMULATING HORMONE 0.93 uIU/mL (0.34-5.60)
[2022-03-11 15:29] LABS: FERRITIN 12.3 ng/mL (11.0-306.8)
== END 2022-03-11 07:17 | disposition home or self-care (01) ==
LOC: LAB.S 07:16
PROVIDERS: ATTEND Internal Medicine
DX: I10 Essential (primary) hypertension (principal); D64.9 Anemia, unspecified; F03.90 Unspecified dementia, unspecified severity, without behavioral disturbance, psychotic disturbance, mood disturbance, and anxiety; R58 Hemorrhage, not elsewhere classified; E78.5 Hyperlipidemia, unspecified; E03.9 Hypothyroidism, unspecified; C43.9 Malignant melanoma of skin, unspecified; M81.0 Age-related osteoporosis without current pathological fracture; M79.659 Pain in unspecified thigh; Z79.899 Other long term (current) drug therapy
CPT/HCPCS: 36415; 80053; 80061; 82306; 82728; 83540; 83721; 84443; 84466; 85025

== ENCOUNTER 2022-04-10 11:24 | Outpatient (CLI) | payer MEDICARE, OTHER ==
[2022-04-10 16:09] LABS: BILIRUBIN,URINE NEGATIVE (NEGATIVE); GLUCOSE, URINE (UA) NEGATIVE (NEGATIVE); KETONES,URINE (UA) NEGATIVE (NEGATIVE); LEUKOCYTE ESTERASE, URINE SMALL (NEGATIVE); NITRITE,URINE NEGATIVE (NEGATIVE); OCCULT BLOOD,URINE NEGATIVE (NEGATIVE); PROTEIN,URINE NEGATIVE (NEGATIVE); UROBILINOGEN,URINE 0.2 (NORMAL) E.U./dL (NORMAL)
[2022-04-10 16:11] LABS: CLARITY,URINE CLEAR (CLEAR)
[2022-04-10 16:51] LABS: BACTERIA,URINE Rare /HPF (None Seen); EPITHELIAL CELLS,UR FEW Transitional /HPF (<= Few); RBC,URINE 0-5 /HPF (0-5); SQUAMOUS EPITHELIAL CELL,UR FEW Squamous (<= Few)
== END 2022-04-10 23:59 | disposition home or self-care (01) ==
LOC: LAB.R 11:24
PROVIDERS: ATTEND Internal Medicine
DX: R39.9 Unspecified symptoms and signs involving the genitourinary system (principal)
CPT/HCPCS: 81001; 87086

== ENCOUNTER 2022-04-21 09:38 | Outpatient (CLI) | payer MEDICARE, OTHER ==
[2022-04-21 14:48] LABS: BILIRUBIN,URINE NEGATIVE (NEGATIVE); GLUCOSE, URINE (UA) NEGATIVE (NEGATIVE); KETONES,URINE (UA) NEGATIVE (NEGATIVE); LEUKOCYTE ESTERASE, URINE TRACE (NEGATIVE); NITRITE,URINE NEGATIVE (NEGATIVE); OCCULT BLOOD,URINE NEGATIVE (NEGATIVE); PROTEIN,URINE NEGATIVE (NEGATIVE); UROBILINOGEN,URINE 0.2 (NORMAL) E.U./dL (NORMAL)
[2022-04-21 14:50] LABS: CLARITY,URINE CLEAR (CLEAR)
== END 2022-04-21 09:39 | disposition home or self-care (01) ==
LOC: LAB.S 09:38
PROVIDERS: ATTEND Internal Medicine
DX: R39.9 Unspecified symptoms and signs involving the genitourinary system (principal)
CPT/HCPCS: 81003; 87086

== ENCOUNTER 2022-11-24 11:23 | Outpatient (CLI) | payer MEDICARE, OTHER ==
--- NOTE | 2022-11-24 15:37 | XRAY Report ---
PROCEDURE: Femur 2V RT INDICATIONS: PX IN FEMUR TECHNIQUE: 2 views of the femur were acquired. COMPARISON: None. FINDINGS: Bones: Left femur nail and screw instrumentation noted in good position. No evidence of hardware cesar lure or loosening. Generalized decreased osseous mineralization present. Degenerative arthritic rhoades es noted at the knee Soft tissues: No suspicious soft tissue calcifications or masses. IMPRESSION: Femoral instrumentation without evidence of hardware failure or loosening. Osteopenia Reviewed by: Ozzy Lechuga MD on 11/24/2022 2:36 PM [facility] Approved by: Ozzy Lechuga MD on 11/24/2022 2:36 PM [facility] Station ID: [id number]
== END 2022-11-24 11:24 | disposition home or self-care (01) ==
LOC: DI 11:23
PROVIDERS: ATTEND Internal Medicine
DX: M79.651 Pain in right thigh (principal); M85.88 Other specified disorders of bone density and structure, other site

== ENCOUNTER 2024-07-01 13:56 | Inpatient (IN) ==
--- NOTE | 2024-07-01 14:38 | ED Physician Documentation ---
History of Present Illness Stated complaint Stated Complaint: VOMITING Chief complaint Chief Complaint: Abd Pain History obtained from History obtained from: Patient, Family and EMS History of Present Illness Pain level max: 6 Pain level now: 6 Additonal information Additional information: Patient is an 84-year-old female who presents to the emergency department with her family. History of dementia. Was seen here yesterday for worsening dementia symptoms. Negative head CT. No acute laboratory findings and benign abdominal exam at that time. Today she had vomiting and complained of abdominal pain, therefore was brought back to the emergency department. Family states she did not have a bowel movement yesterday and has not had 1 today. No fevers. The abdominal pain seems to come and go they state that her abdomen seems more distended today than usual. Review of Systems Constitutional Denies: Fever or Chills Cardiovascular Denies: chest pain Respiratory Denies: Cough Gastrointestinal Reports: Abdominal distention, Nausea and Vomiting; Denies: Savage blood emesis or Coffee grounds in vomit Meds/Allgy Home Medications Ambulatory Orders Medication Instructions Recorded Confirmed losartan 100 mg tablet 100 mg PO DAILY 03/26/20 05/04/24 omeprazole 40 mg capsule,delayed 40 mg PO DAILY 03/26/20 05/04/24 release calcium carbonate 500 mg (2.5 x 200 mg calcium (500 04/01/20 05/04/24 mg)) PO BID@1000,2200 #60 tabs cholecalciferol (vitamin D3) 10 800 unit PO DAILY #30 tabs 04/01/20 05/04/24 mcg (400 unit) tablet (Vitamin D3) amlodipine 2.5 mg tablet (Norvasc) 2.5 mg PO DAILY 08/11/21 05/04/24 levothyroxine 88 mcg tablet 100 mcg PO QDAC 08/11/21 05/04/24 Allergies Allergies Allergy/AdvReac Type Severity Reaction Status Date / Time erythromycin base Allergy Mild Nausea Verified 07/01/24 14:22 Penicillins Allergy Mild Rash Verified 07/01/24 14:22 clindamycin Allergy Rash Verified 07/01/24 14:22 adhesive tape AdvReac Mild Hives Verified 07/01/24 14:22 [facility] Medical History Medical History (Updated 07/01/24 @ 18:33 by Maximiliano Torres MD) Hypertension Hypothyroidism Hemochromatosis Aortic regurgitation Atrial fibrillation with rapid ventricular response Paroxysmal atrial fibrillation Social History Social History Smoking Status: Never smoker Do you dip or chew tobacco?: No Do you vape?: No Living arrangement: At home Living Condition: Alone Relationship: Do you feel safe in your home environment?: Yes Suffered physical, verbal, emotional, or financial abuse?: No History of Abuse: No Frequency: Occasional POLST Patient has POLST: No Exam Constitutional normal general appearance and no apparent distress HENMT oral mucous membranes normal Eyes PERRL Respiratory breath sounds equal bilaterally and normal respiratory effort Cardiovascular regular rhythm noted Gastrointestinal Distended abdomen, tympanic to percussion. Tender to palpation diffusely. No peritoneal signs Psychiatry Pleasantly confused less responsive than yesterday Skin skin color normal Results Vitals Vitals: Vital Signs - 24 hr 07/01/24 14:11 Temperature 36.7 C Temperature Source Temporal Artery Scan Pulse Rate 94 Respiratory Rate 24 Blood Pressure 139/103 H O2 Saturation 95 O2 Source Room air Pain Intensity 5 Oxygen O2 Source Room air Labs Labs: Laboratory Tests 07/01/24 07/01/24 14:43 15:48 WBC 14.5 H RBC 4.27 Hgb 13.3 Hct 39.8 MCV 93.2 MCH 31.1 H MCHC 33.4 RDW 12.7 Plt Count 361 MPV 9.6 Neut # (Auto) 12.6 H Lymph # (Auto) 0.8 L Eddy # (Auto) 1.1 H Eos # (Auto) 0.1 Baso # (Auto) 0.0 Absolute Nucleated RBC 0.00 Nucleated RBC % 0.0 Sodium 131 L Potassium 3.8 Chloride 94 L Carbon Dioxide 26 Anion Gap 11.0 BUN 25 H Creatinine 0.7 Estimated GFR (MDRD) 80 L Glucose 133 H Lactic Acid 0.9 Calcium 9.1 Total Bilirubin 1.1 H AST 17 ALT 18 Alkaline Phosphatase 104 Total Protein 7.1 Albumin 3.8 Globulin 3.3 Albumin/Globulin Ratio 1.2 Lipase 30 TSH 14.25 H Free T4 Direct 0.98 Rads (name of study) CT abd/pelvis: Relevant Findings:: Final report received PD Medical Decision Making ED course Complexity details: reviewed results, considered differential, d/w patient and d/w family ED course: 84-year-old female with a distended abdomen, tympanic to percussion and vomiting. CT scan shows an ileus, does not show any evidence of bowel obstruction. Patient does still have a mildly decreased mental status compared to her normal. She attempted to drink water, stay down for a few minutes but then would begin to vomit again. Patient will need to be placed in the observation overnight for bowel rest and to ensure that the ileus resolves. Discussed the case with the hospitalist who accepts. This document was made in part using voice recognition software. While efforts are made to proofread this document, sound alike and grammatical errors may occur. Discharge Plan Discharge Patient Disposition: ED Place in Observation Condition: Stable Clinical Impression: Ileus Dementia Qualifiers: Dementia type: unspecified type Dementia severity: unspecified severity Dementia behavioral or psychological symptom: unspecified whether behavioral, psychotic, or mood disturbance or anxiety Qualified Code(s): F03.90 - Unspecified dementia, unspecified severity, without behavioral disturbance, psychotic disturbance, mood disturbance, and anxiety Vomiting Qualifiers: Vomiting type: unspecified Nausea presence: with nausea Qualified Code(s): R11.2 - Nausea with vomiting, unspecified Prescriptions: No Action omeprazole 40 MG capsule,delayed release(DR/EC) 40 mg PO DAILY losartan 100 MG tablet 100 mg PO DAILY calcium carbonate 500 MG tablet,chewable 500 mg PO BID@1000,2200 Qty: 60 0RF cholecalciferol (vitamin D3) [Vitamin D3] 400 UNIT tablet 800 unit PO DAILY Qty: 30 0RF amlodipine [Norvasc] 2.5 MG tablet 2.5 mg PO DAILY levothyroxine 88 MCG tablet 100 mcg PO QDAC Print Language: Tamazight Stand Alone Forms: PCP List
[2024-07-01 14:51] LABS: BASOPHILS % (AUTO) 0.1 %; EOSINOPHILS # (AUTO) 0.1 10^3/uL (0.0-0.7); EOSINOPHILS % (AUTO) 0.3 %; HCT - HEMATOCRIT 39.8 % (37.0-47.0); HGB - HEMOGLOBIN 13.3 g/dL (12.0-16.0); LYMPHOCYTES # (AUTO) 0.8 10^3/uL (1.5-3.5); LYMPHOCYTES % (AUTO) 5.4 %; MEAN CORPUSCULAR HEMOGLOBIN 31.1 pg (27.0-31.0); MEAN CORPUSCULAR HGB CONC 33.4 g/dL (32.0-36.0); MEAN CORPUSCULAR VOLUME 93.2 fL (81.0-99.0); MEAN PLATELET VOLUME 9.6 fL (7.9-10.8); MONOCYTES # (AUTO) 1.1 10^3/uL (0.0-1.0); MONOCYTES % (AUTO) 7.2 %; NEUTROPHILS # (AUTO) 12.6 10^3/uL (1.5-6.6); NEUTROPHILS % (AUTO) 86.6 %; PLT - PLATELET COUNT 361 10^3/uL (130-450); RED BLOOD COUNT 4.27 10^6/uL (4.20-5.40); RED CELL DISTRIBUTION WIDTH 12.7 % (12.0-15.0); WHITE BLOOD COUNT 14.5 x10^3/uL (4.8-10.8)
[2024-07-01] MEDS: SODIUM CHLORIDE 0.9% 1,000 ML IV STA (14:52)
[2024-07-01] MEDS: ONDANSETRON 4 MG/2 ML VIAL IVP STA (14:52)
[2024-07-01] MEDS ORDERED: iohexoL-300 100 ML VIAL ONE (14:53)
[2024-07-01 15:08] LABS: ALBUMIN 3.8 g/dL (3.2-5.5); ALBUMIN/GLOBULIN RATIO 1.2 (1.0-2.2); BILIRUBIN,TOTAL 1.1 mg/dL (0.2-1.0); CALCIUM 9.1 mg/dL (8.5-10.3); CREATININE 0.7 mg/dL (0.6-1.3); POTASSIUM 3.8 mmol/L (3.5-4.5); TOTAL PROTEIN 7.1 g/dL (6.4-8.9)
[2024-07-01 15:21] LABS: THYROID STIMULATING HORMONE 14.25 uIU/mL (0.34-5.60)
[2024-07-01] MEDS: iohexoL-300 100 ML VIAL IVP ONE (16:11)
--- NOTE | 2024-07-01 16:16 | CT Report ---
PROCEDURE: CT Abdomen/Pelvis W INDICATIONS: Abdominal pain, acute, nonlocalized CONTRAST: OMNI 300 100ML TECHNIQUE: After the administration of intravenous contrast, a CT scan of the abdomen and pelvis was performed. Images were recorded and evaluated at appropriate window settings. Reformats: coronal and sagittal. F or radiation dose reduction, the following was used: automated exposure control, adjustment of mA and /or kV according to patient size. COMPARISON: 08/11/2021 FINDINGS: Image quality: Diagnostic. Lower chest: Small hiatal hernia. Small bilateral pleural effusions with minimal bibasilar atelectasi s. Severe coronary artery calcifications. Cardiomegaly. Left atrium is quite prominent. Aneurysmal di latation of the ascending aorta, measuring 4.9 cm on axial image 6 of series 2. Liver: No solid mass. Gallbladder: Not identified. Biliary tree: No intrahepatic or extrahepatic dilation, accounting for age. Spleen: No splenomegaly. Pancreas: No pancreatic ductal dilation. Adrenals: No adrenal nodule. Kidneys and ureters: No hydronephrosis. No renal cystic lesion which requires follow up. No solid mas s. Stomach, bowel and peritoneum: Diffuse ileus pattern.. Development of mild ascites, predominantly in the pelvis. Lymph nodes: No central or retroperitoneal adenopathy. Vessels: No infrarenal aortic aneurysm. Patent portal vein. PELVIS Reproductive organs: Unremarkable. Bladder: No abnormal wall thickening, accounting for underdistention. Pelvic lymph nodes: No pelvic adenopathy by size criteria. Bones: No aggressive osseous abnormality. Other: No significant ventral or inguinal hernia. IMPRESSION: 1. Cardiomegaly, severe coronary calcifications. 2. Ascending aortic aneurysm, measuring 4.9 cm. 3. Ileus pattern, development of mild ascites. Question interval cholecystectomy. Reviewed by: Jose M Sheets MD on 07/01/2024 4:15 PM PST Approved by: Jose M Sheets MD on 07/01/2024 4:15 PM PST Station ID: [id number]
--- NOTE | 2024-07-01 19:14 | HISTORY & PHYSICAL EXAMINATION ---
Chief Complaint Chief Complaint Chief Complaint: vomiting History of Present Illness Admitted From Admitted From:: assisted living. History Obtained From Records Reviewed: past ED visit. History obtained from: daughter and DIL at bedside. History of Present Illness HPI Comment/Other: 84-year-old resident of [facility] who presents to the emergency department for the second day in a row. Yesterday she was seen for altered mental status. She had a CT of her head though there were no abnormalities found and she was discharged to home. She returns today with development of vomiting. It has been 2 days since she has last had a bowel movement. Every time she eats she vomits. She has a past surgical history of hysterectomy per her daughter and [id number] who are at the bedside. Patient is unable to give a history due to her dementia. Her family at the bedside denies any history of atrial fibrillation. She has had a decline in the last 3 weeks. Previously she was ambulatory with a walker and able to make it to the bathroom. Over the last 3 weeks she has progressed to not being able to make to the bathroom, wearing briefs at all times. Her memory also seems to be getting worse. She has had a lapse in primary care due to the [facility] of [facility]. Brewer. She does have an upcoming appointment at [facility]. Additionally she is scheduled to see palliative care as an outpatient in early July. Her daughter and [id number] expressed that she would like to be DNR/DNI. She does have a POLST which states this. I do not have a copy of this POLST here today her daughter Adali is her surrogate decision-maker. Meds/Allgy Home Medications Ambulatory Orders Medication Instructions Recorded Confirmed losartan 100 mg tablet 100 mg PO DAILY 03/26/20 05/04/24 omeprazole 40 mg capsule,delayed 40 mg PO DAILY 03/26/20 05/04/24 release calcium carbonate 500 mg (2.5 x 200 mg calcium (500 04/01/20 05/04/24 mg)) PO BID@1000,2200 #60 tabs cholecalciferol (vitamin D3) 10 800 unit PO DAILY #30 tabs 04/01/20 05/04/24 mcg (400 unit) tablet (Vitamin D3) amlodipine 2.5 mg tablet (Norvasc) 2.5 mg PO DAILY 08/11/21 05/04/24 levothyroxine 88 mcg tablet 100 mcg PO QDAC 08/11/21 05/04/24 Allergies Allergies Allergy/AdvReac Type Severity Reaction Status Date / Time erythromycin base Allergy Mild Nausea Verified 07/01/24 14:22 Penicillins Allergy Mild Rash Verified 07/01/24 14:22 clindamycin Allergy Rash Verified 07/01/24 14:22 adhesive tape AdvReac Mild Hives Verified 07/01/24 14:22 [facility] Medical History Medical History (Updated 07/01/24 @ 18:33 by Maximiliano Torres MD) Hypertension Hypothyroidism Hemochromatosis Aortic regurgitation Atrial fibrillation with rapid ventricular response Paroxysmal atrial fibrillation Social History Social History Smoking Status: Unknown if ever smoked Do you dip or chew tobacco?: No Do you vape?: No Living arrangement: At home Living Condition: Alone Relationship: Level: Assisted Do you feel safe in your home environment?: Yes Suffered physical, verbal, emotional, or financial abuse?: No History of Abuse: No Frequency: Occasional POLST Patient has POLST: No Review of Systems Status of ROS: unobtainable due to mental status Prior Level of Functionality: Decline over the last 3 weeks. She has had bowel and bladder incontinence. Her memory is worsening. Previous to this she was ambulatory with a walker. The onset of her difficulties coincided with some leg swelling and prescription of diuretics. Exam Constitutional normal general appearance and no apparent distress Pleasantly demented. Knows her name. But does not know where she is or the date [facility] normocephalic Eyes conjunctivae normal Neck/C-Spine visual inspection normal Lymph no lymphadenopathy noted Chest inspection of chest normal Respiratory breath sounds equal bilaterally and normal respiratory effort Cardiovascular normal heart rate noted irregularly irregular Gastrointestinal abdomen is mildly tender, diffusely. she does not have bowel tone. abdomen is distended. Extremities normal to inspection and normal to palpation minimal edema, she has pre tibial bruising and scabs. 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 fluids. Her CT scan of the abdomen pelvis shows a pattern of ileus. It does not show a pattern of obstruction. She has failed p.o. challenge in the emergency department. She does not have any tachycardia or hypotension. Her mental status is improved since being in the emergency department after liter of fluids. We will admit this patient for observation overnight. She will get IV hydration. She will get clears as she desires. We will await return of bowel function which will likely happen with bowel rest. She does not have any significant tenderness of her abdomen she has some mild distention. She has a leukocytosis of 14.5. I will recheck CBC in the AM. This is likely due to her vomiting. I discussed this patient with Dr. Cummings in the emergency department. The decision was made to admit due to her inability tolerate clear liquids and need for IV fluids and IV antiemetics. She will be admitted to observation status. (2) Acute hyponatremia: Plan: Mild hyponatremia sodium was 130 yesterday 131 today. Probably due to vomiting. Will likely self-correct with IV fluids and the institution of p.o. intake. (3) Dementia: Plan: She has been struggling with dementia for some time. The overall course the patient and her family would want is palliative in nature. She is DNR/DNI. She does have a POLST that states no CPR no intubation comfort measures only. Her daughter at the bedside affirms that today. I do not have a copy of the POLST but does not have it with her today. (4) Hypothyroidism: Plan: chronic hypothyroidism. I have reviewed the meds list for Diamond Guevara. This states that she is on 125 of Synthroid a day. I will continue this medication when she is able to take p.o. Plan I have spent 85 minutes in the care of this patient today. This includes time [id number], review and ordering of diagnostic imaging and laboratory studies and consultation with other providers.. Monitoring the patient's signs symptoms, evaluation of medication effectiveness and patient's response to treatment. Lab Results Lab results reviewed: Yes 07/01/24 14:43 07/01/24 14:43
[2024-07-01] MEDS ORDERED: SODIUM CHLORIDE FLUSH 0.9% 10 ML SYRINGE IVP PRN (20:11)
[2024-07-01] MEDS ORDERED: ONDANSETRON 4 MG/2 ML VIAL IVP PRN (20:11)
[2024-07-01] MEDS ORDERED: HYDROmorphone 0.5 MG/0.5 ML SYRINGE IVP PRN (20:11)
[2024-07-01] MEDS: HEPARIN 5,000 UNIT/ML VIAL SUBQ SCH (23:38)
[2024-07-01] MEDS: LACTATED RINGERS 1,000 ML IV SCH (23:38)
[2024-07-02] MEDS: SODIUM CHLORIDE FLUSH 0.9% 10 ML SYRINGE IVP SCH (01:33)
[2024-07-02 05:42] LABS: BASOPHILS % (AUTO) 0.3 %; EOSINOPHILS # (AUTO) 0.1 10^3/uL (0.0-0.7); EOSINOPHILS % (AUTO) 0.5 %; HGB - HEMOGLOBIN 11.6 g/dL (12.0-16.0); LYMPHOCYTES # (AUTO) 1.1 10^3/uL (1.5-3.5); LYMPHOCYTES % (AUTO) 10.9 %; MEAN CORPUSCULAR HEMOGLOBIN 31.3 pg (27.0-31.0); MEAN CORPUSCULAR HGB CONC 33.1 g/dL (32.0-36.0); MEAN CORPUSCULAR VOLUME 94.3 fL (81.0-99.0); MEAN PLATELET VOLUME 9.6 fL (7.9-10.8); MONOCYTES # (AUTO) 0.9 10^3/uL (0.0-1.0); MONOCYTES % (AUTO) 8.9 %; NEUTROPHILS # (AUTO) 7.6 10^3/uL (1.5-6.6); NEUTROPHILS % (AUTO) 78.9 %; PLT - PLATELET COUNT 312 10^3/uL (130-450); RED BLOOD COUNT 3.71 10^6/uL (4.20-5.40); RED CELL DISTRIBUTION WIDTH 12.9 % (12.0-15.0); WHITE BLOOD COUNT 9.7 x10^3/uL (4.8-10.8)
[2024-07-02 05:55] LABS: CALCIUM 8.4 mg/dL (8.5-10.3); CREATININE 0.8 mg/dL (0.6-1.3); POTASSIUM 4.2 mmol/L (3.5-4.5)
[2024-07-02] MEDS: PANTOPRAZOLE 40 MG VIAL IVP SCH (09:27)
--- NOTE | 2024-07-02 13:57 | PHARMACY PROGRESS NOTE ---
Best Possible Medication History Admit Date and Time: 07/02/24 1152 Home Medications Medication Instructions Recorded Confirmed Type losartan 100 mg tablet 100 mg PO DAILY 03/26/20 07/02/24 History omeprazole 40 mg capsule,delayed 40 mg PO DAILY 03/26/20 07/02/24 History release buspirone 10 mg tablet 10 mg PO BID 07/02/24 07/02/24 History escitalopram oxalate 5 mg tablet 5 mg PO DAILY 07/02/24 07/02/24 History levothyroxine 125 mcg tablet mcg 07/02/24 History vit C 250 mg-vit E 200 unit-zinc 1 cap PO DAILY 07/02/24 07/02/24 History ox 12.5 [id number] capsule [facility] Statement: As the person ultimately responsible for medication therapy, providers are able to order a medication from an existing home medication list in [facility] via the "Reconcile Routine" prior to Confirmation of that medication by marketing support coordinator. Such practice is discouraged except when the physician, in their clinical judgment, deems that a medical need exists for a medication without regard to previous use.
--- NOTE | 2024-07-02 14:04 | PROVIDER PROGRESS NOTE ---
Subjective Prog Note Date Prog Note Date: 07/02/24 Prog Note Time: 11:15 Subjective Pt reports feeling: Improved Subjective: She remains pleasantly demented but without complaints. She denies abdominal pain Current Medications Current Medications Current Medications: Current Medications Generic Name Dose Route Start Last Admin Trade Name Freq PRN Reason Stop Dose Admin Acetaminophen 650 mg 07/01/24 20:11 Acetaminophen 325 Mg Tablet PO Q4HR PRN Pain 1 to 4, or Fever Heparin Sodium (Porcine) 5,000 unit 07/01/24 21:00 07/02/24 09:25 Heparin 5,000 Unit/Ml Vial SUBQ 5,000 unit BID SLICK Administration Hydromorphone HCl 0.5 mg 07/01/24 20:11 Hydromorphone 0.5 Mg/0.5 Ml Syringe IVP Q2H PRN Pain 8 to 10 Ondansetron HCl 4 mg 07/01/24 20:11 Ondansetron 4 Mg/2 Ml Vial IVP Q6HR PRN Nausea / Vomiting Pantoprazole Sodium 40 mg 07/02/24 09:00 07/02/24 09:27 Pantoprazole 40 Mg Vial IVP 40 mg DAILY SLICK Administration Sodium Chloride 10 ml 07/01/24 20:11 Sodium Chloride Flush 0.9% 10 Ml Syringe IVP PRN PRN NEEDED PER PROVIDER ORDERS Sodium Chloride 10 ml 07/02/24 01:00 07/02/24 09:27 Sodium Chloride Flush 0.9% 10 Ml Syringe IVP 10 ml 0100,0900,1700 SLICK Administration Objective Vital Signs/Intake & Output Vital Signs: Vital Signs x48h Temp Pulse Resp BP Pulse Ox 07/02/24 08:17 36.6 C 73 20 131/87 H 94 Intake & Output: Intake & Output 06/29/24 06/30/24 07/01/24 07/02/24 23:59 23:59 23:59 23:59 Intake Total 1999 Balance 1999 Weight (kg) 58.5 kg Lab Results 07/02/24 05:30 07/02/24 05:30 Other Labs: Lab Results x24hrs 07/02/24 07/01/24 07/01/24 Range/Units 05:30 15:48 14:43 WBC 9.7 14.5 H (4.8-10.8) x10^3/uL RBC 3.71 L 4.27 (4.20-5.40) 10^6/uL Hgb 11.6 L 13.3 (12.0-16.0) g/dL Hct 35.0 L 39.8 (37.0-47.0) % MCV 94.3 93.2 (81.0-99.0) fL MCH 31.3 H 31.1 H (27.0-31.0) pg MCHC 33.1 33.4 (32.0-36.0) g/dL RDW 12.9 12.7 (12.0-15.0) % Plt Count 312 361 (130-450) 10^3/uL MPV 9.6 9.6 (7.9-10.8) fL Neut # (Auto) 7.6 H 12.6 H (1.5-6.6) 10^3/uL Lymph # (Auto) 1.1 L 0.8 L (1.5-3.5) 10^3/uL Centre # (Auto) 0.9 1.1 H (0.0-1.0) 10^3/uL Eos # (Auto) 0.1 0.1 (0.0-0.7) 10^3/uL Baso # (Auto) 0.0 0.0 (0.0-0.1) 10^3/uL Absolute Nucleated RBC 0.00 0.00 x10^3/uL Nucleated RBC % 0.0 0.0 /100WBC Sodium 132 L 131 L (135-145) mmol/L Potassium 4.2 3.8 (3.5-4.5) mmol/L Chloride 100 L 94 L (101-111) mmol/L Carbon Dioxide 26 26 (21-32) mmol/L Anion Gap 6.0 11.0 (6-13) BUN 25 H 25 H (6-20) mg/dL Creatinine 0.8 0.7 (0.6-1.3) mg/dL Estimated GFR (MDRD) 68 L 80 L (>89) Glucose 107 H 133 H (74-104) mg/dL Lactic Acid 0.9 (0.5-2.2) mmol/L Calcium 8.4 L 9.1 (8.5-10.3) mg/dL Total Bilirubin 1.1 H (0.2-1.0) mg/dL AST 17 (10-42) IU/L ALT 18 (10-60) IU/L Alkaline Phosphatase 104 (42-121) IU/L Total Protein 7.1 (6.4-8.9) g/dL Albumin 3.8 (3.2-5.5) g/dL Globulin 3.3 (2.1-4.2) g/dL Albumin/Globulin Ratio 1.2 (1.0-2.2) Lipase 30 (11-82) U/L TSH 14.25 H (0.34-5.60) uIU/mL Free T4 Direct 0.98 (0.58-1.64) ng/dL Assessment/Plan Problem List (1) Ileus: Impression: She she has not received any pain medication she has not received any antiemetics. She is tolerating sips of clear but her urine output has been quite minimal. She remains on IV fluids, lactated Ringer's at 125 cc an hour. This morning I am advancing her diet to full liquid at lunch. And will advance further later this afternoon. Due to her inability to give a good history or be aware of what is happening with her own body we will need to see appropriate evidence of bowel function prior to discharging her from the hospital. I discussed this with her daughter and [id number]-bi-rhc who are in agreement with this. She had previously been residing at [place] after a respite stay while her daughter and [id number] went on vacation but she did so well there that she is stated an additional 3 months. She is enjoyed the social interaction that she gets there as well as the activities that she does with other senior citizens. However over the last several weeks her functional status has declined and she is not is interested in interacting with others. She may transition back to home after this hospitalization. The trajectory of her care overall is towards palliative measures with her dementia. Her family does see her decline and thinks that she may be nearing the end. (2) Acute hyponatremia: Impression: Sodium at the time of admission was 130 improved to 131 yesterday afternoon and now 132 this morning. I believe her hyponatremia will resolve as she is able to take more p.o. (3) Dementia: Impression: Pleasantly confused. Dementia without behavioral disturbance. She knows who she is but is unaware of location or time. She has little insight into her health conditions. As stated before she does have a POLST in place. I do not have a copy of this POLST. Her primary care is at [facility] and as stated before she has pending consult with palliative care at [facility] as an outpatient. (4) Hypothyroidism: Impression: She is stable. I have resumed her home Synthroid. I have spent 36 minutes in the care of this patient today. This includes time [id number], review and ordering of diagnostic imaging and laboratory studies.. Monitoring the patient's signs symptoms, evaluation of medication effectiveness and patient's response to treatment.
[2024-07-02 15:48] LABS: BILIRUBIN,URINE NEGATIVE (NEGATIVE); GLUCOSE, URINE (UA) NEGATIVE (NEGATIVE); KETONES,URINE (UA) NEGATIVE (NEGATIVE); LEUKOCYTE ESTERASE, URINE NEGATIVE (NEGATIVE); NITRITE,URINE NEGATIVE (NEGATIVE); OCCULT BLOOD,URINE NEGATIVE (NEGATIVE); PROTEIN,URINE 30 mg/dL (NEGATIVE); UROBILINOGEN,URINE 4 E.U./dL (NORMAL)
[2024-07-02 16:03] LABS: BACTERIA,URINE Moderate /HPF (None Seen); CLARITY,URINE CLOUDY (CLEAR); RBC,URINE 0-5 /HPF (0-5); SQUAMOUS EPITHELIAL CELL,UR FEW Squamous (<= Few); WBC,URINE 0-3 /HPF (0-5)
[2024-07-02 16:04] LABS: AMORPHOUS SEDIMENT,UR Moderate /LPF
[2024-07-02] MEDS: busPIRone 5 MG TABLET PO SCH (21:53)
[2024-07-03] MEDS: levoFLOXacin 750 MG/150 ML 750 MG/150 ML BAG IV SCH (00:29)
[2024-07-03] MEDS: PANTOPRAZOLE 40 MG TABLET PO SCH (06:05)
[2024-07-03] MEDS: LEVOTHYROXINE 125 MCG TABLET PO SCH (06:05)
[2024-07-03 06:07] LABS: BASOPHILS % (AUTO) 0.2 %; EOSINOPHILS # (AUTO) 0.1 10^3/uL (0.0-0.7); EOSINOPHILS % (AUTO) 1.9 %; HCT - HEMATOCRIT 35.7 % (37.0-47.0); HGB - HEMOGLOBIN 11.7 g/dL (12.0-16.0); MEAN CORPUSCULAR HGB CONC 32.8 g/dL (32.0-36.0); MEAN CORPUSCULAR VOLUME 94.7 fL (81.0-99.0); MEAN PLATELET VOLUME 9.8 fL (7.9-10.8); MONOCYTES # (AUTO) 0.6 10^3/uL (0.0-1.0); MONOCYTES % (AUTO) 9.7 %; NEUTROPHILS # (AUTO) 4.7 10^3/uL (1.5-6.6); NEUTROPHILS % (AUTO) 72.7 %; PLT - PLATELET COUNT 314 10^3/uL (130-450); RED BLOOD COUNT 3.77 10^6/uL (4.20-5.40); RED CELL DISTRIBUTION WIDTH 12.7 % (12.0-15.0); WHITE BLOOD COUNT 6.4 x10^3/uL (4.8-10.8)
[2024-07-03 06:23] LABS: CALCIUM 7.9 mg/dL (8.5-10.3); CREATININE 0.7 mg/dL (0.6-1.3); POTASSIUM 3.4 mmol/L (3.5-4.5)
[2024-07-03] MEDS: ESCITALOPRAM 10 MG TABLET PO SCH (08:38)
[2024-07-03] MEDS: ACETAMINOPHEN 325 MG TABLET PO PRN (12:38)
--- NOTE | 2024-07-03 13:04 | PROVIDER PROGRESS NOTE ---
Subjective Prog Note Date Prog Note Date: 07/03/24 Prog Note Time: 11:30 Subjective Pt reports feeling: No change Subjective: She was somewhat combative last night with staff. She does not want to get OOB, becomes fearful when turned by staff. She seems confused this AM, but when asked orientation questions, the same. oriented to self. agreeable in her answers. complains of leg pain, but the pain is moving, cannot pinpoint exactly where, right now it is her right calf. Does not eat unless she is fed. Current Medications Current Medications Current Medications: Current Medications Generic Name Dose Route Start Last Admin Trade Name Freq PRN Reason Stop Dose Admin Acetaminophen 650 mg 07/01/24 20:11 07/03/24 12:38 Acetaminophen 325 Mg Tablet PO 650 mg Q4HR PRN Administration Pain 1 to 4, or Fever Buspirone HCl 10 mg 07/02/24 21:00 07/03/24 08:38 Buspirone 5 Mg Tablet PO 10 mg BID SLICK Administration Escitalopram Oxalate 5 mg 07/03/24 09:00 07/03/24 08:38 Escitalopram 10 Mg Tablet PO 5 mg DAILY SLICK Administration Heparin Sodium (Porcine) 5,000 unit 07/01/24 21:00 07/03/24 08:36 Heparin 5,000 Unit/Ml Vial SUBQ 5,000 unit BID SLICK Administration Hydromorphone HCl 0.5 mg 07/01/24 20:11 Hydromorphone 0.5 Mg/0.5 Ml Syringe IVP Q2H PRN Pain 8 to 10 Levothyroxine Sodium 125 mcg 07/03/24 07:00 07/03/24 06:05 Levothyroxine 125 Mcg Tablet PO 125 mcg QDAC SLICK Administration Ondansetron HCl 4 mg 07/01/24 20:11 Ondansetron 4 Mg/2 Ml Vial IVP Q6HR PRN Nausea / Vomiting Pantoprazole Sodium 40 mg 07/03/24 07:00 07/03/24 06:05 Pantoprazole 40 Mg Tablet PO 40 mg QDAC SLICK Administration Sodium Chloride 10 ml 07/01/24 20:11 Sodium Chloride Flush 0.9% 10 Ml Syringe IVP PRN PRN NEEDED PER PROVIDER ORDERS Sodium Chloride 10 ml 07/02/24 01:00 07/03/24 12:39 Sodium Chloride Flush 0.9% 10 Ml Syringe IVP 10 ml 0100,0900,1700 SLICK Administration Objective Vital Signs/Intake & Output Reviewed Vital Signs: Yes Vital Signs: Vital Signs x48h Temp Pulse Resp BP Pulse Ox 07/03/24 08:43 36.4 C L 88 20 133/96 H 95 Intake & Output: Intake & Output 06/30/24 07/01/24 07/02/24 07/03/24 23:59 23:59 23:59 23:59 Intake Total 3890 / 3890 430 / 430 Output Total 500 / 500 450 / 450 Balance 3390 / 3390 -20 / -20 Weight (kg) 58.5 kg Objective General Appearance: positive No acute distress and Alert Eyes Bilateral: positive Normal inspection ENT: positive ENT inspection nml Neck: positive Nml inspection Respiratory: positive No respiratory distress and Breath sounds nml Cardiovascular: positive Regular rate & rhythm Abdomen: positive Non-tender, Nml bowel sounds, No distention and Other (has not had a BM) Skin: positive Color nml and No rash Extremities: positive Non-tender, Full ROM, No pedal edema and Other (passive range of motion lower extremities is WNL) Neurologic/Psychiatric: positive Disoriented to place and Disoriented to time Lab Results 07/03/24 05:27 07/03/24 05:27 Other Labs: Lab Results x24hrs 07/03/24 07/02/24 Range/Units 05:27 13:30 WBC 6.4 (4.8-10.8) x10^3/uL RBC 3.77 L (4.20-5.40) 10^6/uL Hgb 11.7 L (12.0-16.0) g/dL Hct 35.7 L (37.0-47.0) % MCV 94.7 (81.0-99.0) fL MCH 31.0 (27.0-31.0) pg MCHC 32.8 (32.0-36.0) g/dL RDW 12.7 (12.0-15.0) % Plt Count 314 (130-450) 10^3/uL MPV 9.8 (7.9-10.8) fL Neut # (Auto) 4.7 (1.5-6.6) 10^3/uL Lymph # (Auto) 1.0 L (1.5-3.5) 10^3/uL Emmet # (Auto) 0.6 (0.0-1.0) 10^3/uL Eos # (Auto) 0.1 (0.0-0.7) 10^3/uL Baso # (Auto) 0.0 (0.0-0.1) 10^3/uL Absolute Nucleated RBC 0.00 x10^3/uL Nucleated RBC % 0.0 /100WBC Sodium 130 L (135-145) mmol/L Potassium 3.4 L (3.5-4.5) mmol/L Chloride 98 L (101-111) mmol/L Carbon Dioxide 26 (21-32) mmol/L Anion Gap 6.0 (6-13) BUN 19 (6-20) mg/dL Creatinine 0.7 (0.6-1.3) mg/dL Estimated GFR (MDRD) 80 L (>89) Glucose 92 (74-104) mg/dL Calcium 7.9 L (8.5-10.3) mg/dL Urine Color YELLOW Urine Clarity CLOUDY (CLEAR) Urine pH 6.0 (5.0-7.5) PH Ur Specific Chelsea 1.020 (1.002-1.030) Urine Protein 30 H (NEGATIVE) mg/dL Urine Glucose (UA) NEGATIVE (NEGATIVE) mg/dL Urine Ketones NEGATIVE (NEGATIVE) mg/dL Urine Occult Blood NEGATIVE (NEGATIVE) Urine Nitrite NEGATIVE (NEGATIVE) Urine Bilirubin NEGATIVE (NEGATIVE) Urine Urobilinogen 4 H (NORMAL) E.U./dL Ur Leukocyte Esterase NEGATIVE (NEGATIVE) Urine RBC 0-5 (0-5) /HPF Urine WBC 0-3 (0-5) /HPF Ur Squamous Epith Cells FEW Squamous (<= Few) Amorphous Sediment Moderate /LPF Urine Bacteria Moderate H (None Seen) /HPF Ur Microscopic Review INDICATED Urine Culture Comments NOT INDICATED Assessment/Plan Problem List (1) Ileus: Impression: 07/03:She has tolerated a regular diet without vomiting. She has bowel tones and she is passing flatus but she has not had a bowel movement. She did not eat breakfast this morning it almost seems that she did not know what to do with the food. I think her ileus has resolved as her abdomen is not distended and is not tender. There are reports of her passing flatus. She is not a good historian. Overnight urinalysis was obtained and did show moderate bacteria with few squamous cells. I do not believe this is indicative of urinary tract infection. I believe this is indicative of a contaminated specimen. She had some leukocytosis on admission but this resolved without treatment. I believe that was secondary to vomiting. She was given 1 dose of Levaquin during the night. I am going to discontinue the Levaquin as I think it could cause more harm than good.. 07/02: She she has not received any pain medication. she has not received any antiemetics. She is tolerating sips of clear but her urine output has been quite minimal. She remains on IV fluids, lactated Ringer's at 125 cc an hour. This morning I am advancing her diet to full liquid at lunch. And will advance further later this afternoon. Due to her inability to give a good history or be aware of what is happening with her own body we will need to see appropriate evidence of bowel function prior to discharging her from the hospital. I discussed this with her daughter and [id number] who are in agreement with this. She had previously been residing at [facility] after a respite stay while her daughter and [id number] went on vacation but she did so well there that she is stated an additional 3 months. She is enjoyed the social interaction that she gets there as well as the activities that she does with other senior citizens. However over the last several weeks her functional status has declined and she is not is interested in interacting with others. She may transition back to home after this hospitalization. The trajectory of her care overall is towards palliative measures with her dementia. Her family does see her decline and thinks that she may be nearing the end. (2) Acute hyponatremia: Impression: Sodium at the time of admission was 130 improved to 131 yesterday afternoon and now 132 this morning. I believe her hyponatremia will resolve as she is able to take more p.o. (3) Dementia: Impression: Pleasantly confused. Dementia without behavioral disturbance. She knows who she is but is unaware of location or time. She has little insight into her health conditions. I spoke with Dr. Katy Perez of hospice earlier today. Hospice staff will meet with the patient and her daughters tomorrow. She is definitely had a progressive decline over the last several weeks, she may or may need not meet criteria for hospice. She is unable to ambulate without chef assistant's and is now ADL dependent. She is very limited in her ability to communicate verbally. She is not eating. I do not have a history on her weight so I do not know if she is lost weight in the last 6 months. On the fast 7 scale for dementia she is probably somewhere in the range of a 6D or 6 E As stated before she does have a POLST in place. I do not have a copy of this POLST. [place] [facility] [place] and as stated before she has pending consult with palliative care at [facility] as an outpatient. (4) Hypothyroidism: Impression: She is stable. I have resumed her home Synthroid. I have spent 40 minutes in the care of this patient today. This includes time [id number], review and ordering of diagnostic imaging and laboratory studies.. Monitoring the patient's signs symptoms, evaluation of medication effectiveness and patient's response to treatment.
[2024-07-04 06:00] LABS: BASOPHILS % (AUTO) 0.7 %; EOSINOPHILS # (AUTO) 0.1 10^3/uL (0.0-0.7); EOSINOPHILS % (AUTO) 1.5 %; HCT - HEMATOCRIT 39.6 % (37.0-47.0); HGB - HEMOGLOBIN 12.8 g/dL (12.0-16.0); LYMPHOCYTES # (AUTO) 1.3 10^3/uL (1.5-3.5); LYMPHOCYTES % (AUTO) 21.3 %; MEAN CORPUSCULAR HEMOGLOBIN 30.9 pg (27.0-31.0); MEAN CORPUSCULAR HGB CONC 32.3 g/dL (32.0-36.0); MEAN CORPUSCULAR VOLUME 95.7 fL (81.0-99.0); MEAN PLATELET VOLUME 10.6 fL (7.9-10.8); MONOCYTES # (AUTO) 0.7 10^3/uL (0.0-1.0); MONOCYTES % (AUTO) 11.1 %; NEUTROPHILS # (AUTO) 3.9 10^3/uL (1.5-6.6); NEUTROPHILS % (AUTO) 64.9 %; PLT - PLATELET COUNT 292 10^3/uL (130-450); RED BLOOD COUNT 4.14 10^6/uL (4.20-5.40); RED CELL DISTRIBUTION WIDTH 12.4 % (12.0-15.0)
[2024-07-04 06:18] LABS: CALCIUM 8.2 mg/dL (8.5-10.3); CREATININE 0.7 mg/dL (0.6-1.3); POTASSIUM 3.5 mmol/L (3.5-4.5)
[2024-07-04 08:38] VITALS: BP 122/88; TEMP 97.3; O2SAT 97
--- NOTE | 2024-07-04 12:34 | Discharge Summary ---
"Discharge Summary Admit Date: 07/01/24 Discharge Date: 07/04/24 Discharging Provider: Mary Pendleton PA-C Primary Care Provider: Roshni Thompson MD Code Status: Do Not Attempt Resuscitation DIAGNOSES Discharge Diagnoses with Status of Each Condition: Intestinal ileus, resolved Acute hyponatremia, sodium 133 at discharge. Dementia, progressive, being admitted to hospice tomorrow. On the fast 7 scale 60 or 60 Hypothyroidism controlled and stable HPI History of Present Illness: 84-year-old resident of [facility] who presents to the emergency department for the second day in a row. Yesterday she was seen for altered mental status. She had a CT of her head though there were no abnormalities found and she was discharged to home. She returns today with development of vomiting. It has been 2 days since she has last had a bowel movement. Every time she eats she vomits. She has a past surgical history of hysterectomy per her daughter and [id number] who are at the bedside. Patient is unable to give a history due to her dementia. Her family at the bedside denies any history of atrial fibrillation. She has had a decline in the last 3 weeks. Previously she was ambulatory with a walker and able to make it to the bathroom. Over the last 3 weeks she has progressed to not being able to make to the bathroom, wearing briefs at all times. Her memory also seems to be getting worse. She has had a lapse in primary care due to the group home of Dr. Brewer. She does have an upcoming appointment at [facility] [place]. Additionally she is scheduled to see palliative care as an outpatient in early July. Her daughter and [id number] expressed that she would like to be DNR/DNI. She does have a POLST which states this. I do not have a copy of this POLST here today her daughter Adali is her surrogate decision-maker. CONSULTS | PROCEDURES Procedures: CT abdomen pelvis:1. Cardiomegaly, severe coronary calcifications. 2. Ascending aortic aneurysm, measuring 4.9 cm. 3. Ileus pattern, development of mild ascites. Question interval cholecystectomy. HOSPITAL COURSE Hospital Course: (1) Ileus: Impression: 07/03:She has tolerated a regular diet without vomiting. She has bowel tones and she is passing flatus but she has not had a bowel movement. She did not eat breakfast this morning it almost seems that she did not know what to do with the food. I think her ileus has resolved as her abdomen is not distended and is not tender. There are reports of her passing flatus. She is not a good historian. Overnight urinalysis was obtained and did show moderate bacteria with few squamous cells. I do not believe this is indicative of urinary tract infection. I believe this is indicative of a contaminated specimen. She had some leukocytosis on admission but this resolved without treatment. I believe that was secondary to vomiting. She was given 1 dose of Levaquin during the night. I am going to discontinue the Levaquin as I think it could cause more harm than good.. 07/02: She she has not received any pain medication. she has not received any antiemetics. She is tolerating sips of clear but her urine output has been quite minimal. She remains on IV fluids, lactated Ringer's at 125 cc an hour. This morning I am advancing her diet to full liquid at lunch. And will advance further later this afternoon. Due to her inability to give a good history or be aware of what is happening with her own body we will need to see appropriate evidence of bowel function prior to discharging her from the hospital. I discussed this with her daughter and [id number] who are in agreement with this. She had previously been residing at [place] after a respite stay while her daughter and [id number] went on vacation but she did so well there that she is stated an additional 3 months. She is enjoyed the social interaction that she gets there as well as the activities that she does with other senior citizens. However over the last several weeks her functional status has declined and she is not is interested in interacting with others. She may transition back to home after this hospitalization. The trajectory of her care overall is towards palliative measures with her dementia. Her family does see her decline and thinks that she may be nearing the end. (2) Acute hyponatremia: Impression: Sodium at the time of admission was 130 improved to 131 yesterday afternoon and now 132 this morning. I believe her hyponatremia will resolve as she is able to take more p.o. (3) Dementia: Impression: Pleasantly confused. Dementia without behavioral disturbance. She knows who she is but is unaware of location or time. She has little insight into her health conditions. I spoke with Dr. Katy Perez of hospice earlier today. Hospice staff will meet with the patient and her daughters tomorrow. She is definitely had a progressive decline over the last several weeks, she may or may need not meet criteria for hospice. She is unable to ambulate without licensed nursing assistant's and is now ADL dependent. She is very limited in her ability to communicate verbally. She is not eating. I do not have a history on her weight so I do not know if she is lost weight in the last 6 months. On the fast 7 scale for dementia she is probably somewhere in the range of a 6D or 6 E As stated before she does have a POLST in place. I do not have a copy of this POLST. Her primary care is at [facility] [place] and as stated before she has pending consult with palliative care at [facility] as an outpatient. (4) Hypothyroidism: Impression: She is stable. I have resumed her home Synthroid. ALLERGIES Allergies Allergy/AdvReac Type Severity Reaction Status Date / Time erythromycin base Allergy Mild Nausea Verified 07/01/24 14:22 Penicillins Allergy Mild Rash Verified 07/01/24 14:22 clindamycin Allergy Rash Verified 07/01/24 14:22 adhesive tape AdvReac Mild Hives Verified 07/01/24 14:22 MEDICATIONS Ambulatory Orders Medication Instructions Recorded Confirmed omeprazole 40 mg capsule,delayed 40 mg PO DAILY 03/26/20 07/02/24 release buspirone 10 mg tablet 10 mg PO BID 07/02/24 07/02/24 escitalopram oxalate 5 mg tablet 5 mg PO DAILY 07/02/24 07/02/24 levothyroxine 125 mcg tablet mcg 07/02/24 acetaminophen 325 mg tablet 650 mg (2 x 325 mg) PO Q4HR PRN 07/04/24 Pain 1 to 4, or Fever #30 tabs PHYSICAL EXAM AT DISCHARGE Physical Exam Other/Comments: General Appearance: positive No acute distress and Alert Eyes Bilateral: positive Normal inspection ENT: positive ENT inspection nml Neck: positive Nml inspection Respiratory: positive No respiratory distress and Breath sounds nml Cardiovascular: positive Regular rate & rhythm Abdomen: positive Non-tender, Nml bowel sounds, No distention and Other (has not had a BM) Skin: positive Color nml and No rash Extremities: positive Non-tender, Full ROM, No pedal edema and Other (passive range of motion lower extremities is WNL) Neurologic/Psychiatric: positive Disoriented to place and Disoriented to time LABS 07/04/24 05:03 07/04/24 05:03 FOLLOW UP Follow Up: Hospice Admit 07/05. TIME SPENT Time Spent in Discharge (Minutes): 45 Discharge Plan Discharge Patient Disposition: 50 Hospice/Home DC/Xfer Condition: Stable Prescriptions: New acetaminophen 325 mg Tablet 650 mg PO Q4HR PRN (Reason: Pain 1 to 4, or Fever) Qty: 30 0RF Continued omeprazole 40 MG capsule,delayed release(DR/EC) 40 mg PO DAILY buspirone 10 mg tablet 10 mg PO BID escitalopram oxalate 5 mg tablet 5 mg PO DAILY Patient Comments: take 1 tablet by mouth once daily levothyroxine 125 mcg tablet Patient Comments: TAKE 1/2 TO 1 TABLET BY MOUTH DAILY FOR 6 DAYS A WEEK, THEN TAKE 1/2 TABLET 1 DAY OF THE WEEK Rx Instructions: takes 1 tablet daily for six days per week, and takes 1/2 tablet daily one day per week (these are the correct instructions) Discontinued losartan 100 MG tablet 100 mg PO DAILY vit C-E-zinc nk-qahp-fkk-zeax 250 mg-200 unit -12.5 mg-1 mg capsule 1 cap PO DAILY Activity Restrictions: No Restrictions Diet: Regular Health Concerns: You are a marlyn and delightful 84-year-old female with dementia. It sounds like you have had a great few months but things are sliding downhill for you, and that is okay. You came into the hospital with your GI tract not working. With a little bit of supportive care that got better. However as you have been here it has been quite clear that your dementia is progressing quite quickly. At this time it is time to focus on your comfort. Hospice saw you this morning and they will be seeing you again tomorrow at [place]. They will help get you set up with all of the things that you need to help you feel better. At this time are using some Tylenol for your leg pain which seems to be working pretty well. Otherwise any medications you are on should be focused on your comfort. For this reason I am leaving you on your thyroid medication, your BuSpar and your Lexapro. At the time that you stop swallowing these medications probably best to let them go. I am taking you off of your blood pressure medicine because I do not see any utility served in this. Care Plan Goals: Being comfortable and spending time with family. Assessment: Dementia, end-stage going on hospice. Plan of Treatment: hospice admission Print Language: Palestinian Patient Instructions: Dementia Follow-up Care: Laura Perez MD [Provider Admit Priv/Credential] -"
== END 2024-07-04 13:05 | disposition hospice, home (50) | DRG 389 ==
LOC: ED 13:56 → MS2 13:56
PROVIDERS: ADMIT Physician Assistant Medical; ATTEND Physician Assistant Medical